=== PATIENT | male | born 1965 | race American Indian/Alaskan Native ===

== ENCOUNTER 2017-07-13 21:09 | Emergency (ER) | payer MEDICARE ==
[2017-07-13 21:46] VITALS: BP 153/103
== END 2017-07-14 14:15 ==
LOC: ED 21:09
DX: R46.89 Other symptoms and signs involving appearance and behavior (principal); Z53.21 Procedure and treatment not carried out due to patient leaving prior to being seen by health care provider

== ENCOUNTER 2017-08-22 17:44 | Inpatient (IN) | payer MEDICARE ==
[2017-08-22 21:49] LABS: Basophils % (Auto) 0.6 % (0.0-1.8); Eosinophils # (Auto) 0.3 K/mm3 (0.0-0.4); Eosinophils % (Auto) 4.7 % (0.0-4.3); Hematocrit 36.8 % (35.5-45.6); Hemoglobin 11.9 gm/dl (11.8-15.2); Lymphocytes # (Auto) 1.5 K/mm3 (1.2-5.4); Lymphocytes % (Auto) 27.9 % (13.4-35.0); Mean Corpuscular HGB Conc 32 % (32-34); Mean Corpuscular Hemoglobin 28 pg (28-32); Mean Corpuscular Volume 87 fl (84-94); Monocytes # (Auto) 0.7 K/mm3 (0.0-0.8); Monocytes % (Auto) 12.7 % (0.0-7.3); Platelet Count 247 K/mm3 (140-440); Red Blood Count 4.22 M/mm3 (3.65-5.03); Red Cell Distribution Width 15.4 % (13.2-15.2)
--- NOTE | 2017-08-22 22:06 | Cat Scan Report ---
FINAL REPORT EXAM: CT HEAD/BRAIN WO CON HISTORY: confusion TECHNIQUE: CT head without contrast PRIORS: None. FINDINGS: There is encephalomalacia within the posterior medial right lobe of the cerebellum. There is additional area of focal encephalomalacia seen within the right temporal parietal region. Focal hypodensity is present within the and right internal capsule consistent with a remote infarct. No acute a parenchymal abnormalities are seen. No acute intra or extra-axial hemorrhage is identified. Bony calvarium appears intact. Visualized portions of the paranasal sinuses and mastoids are unremarkable. IMPRESSION: Remote ischemic changes no acute abnormality identified
[2017-08-22 22:10] LABS: Albumin 3.1 g/dL (3.9-5); BUN/Creatinine Ratio 24; Blood Urea Nitrogen 19 mg/dL (9-20); Calcium 8.5 mg/dL (8.4-10.2); Hemolysis Index 320
[2017-08-22 22:11] LABS: Alanine Aminotransferase 35 units/L (7-56)
[2017-08-22 22:40] LABS: Albumin 3.7 g/dL (3.9-5); BUN/Creatinine Ratio 24; Blood Urea Nitrogen 19 mg/dL (9-20); Calcium 8.6 mg/dL (8.4-10.2); Hemolysis Index 196
[2017-08-22 22:50] LABS: Alanine Aminotransferase 35 units/L (7-56)
[2017-08-22 23:28] LABS: Bilirubin,Urine NEG (Negative); Blood,Urine NEG (Negative); Color,Urine Yellow (Yellow)
[2017-08-23 00:21] LABS: Alanine Aminotransferase 32 units/L (7-56); BUN/Creatinine Ratio 23; Blood Urea Nitrogen 18 mg/dL (9-20); Calcium 8.4 mg/dL (8.4-10.2); Hemolysis Index 16
--- NOTE | 2017-08-23 00:55 | Emergency Department Report ---
HPI - General Chief Complaint: Medical Clearance Time Seen by Provider: 08/22/17 21:12 - HPI HPI: Patient is a 52-year-old -Serbian male, was brought in the ED by his landlord states that patient is unable to care for self. However while in ED patient states that he is able to care for himself, he did have recent stroke a couple weeks ago but was discharged home. He is refusing placement to a [place] [facility] at this time. His refusing to come in the hospital since he thinks he is able to care for himself. Patient is alert, oriented, denying SI denies HI. Patient denies any acute complaints. He states since his stroke his memory has not been the same, but he is able to function, eat, dress himself , feed himself, bathe himself. He denies any focal weakness, chest pain, shortness of breath, nausea, vomiting or diarrhea. ED Past Medical Hx - Past Medical History Hx Hypertension: Yes Hx CVA: Yes Hx Diabetes: Yes Additional medical history: CHF, - Surgical History Additional Surgical History: Left arm - Social History Smoking Status: Never Smoker ED Review of Systems ROS: Stated complaint: VERY CONFUSED Other details as noted in HPI Comment: All other systems reviewed and negative ENT: denies: ear pain, throat pain Respiratory: denies: cough, orthopnea Cardiovascular: denies: chest pain, palpitations, dyspnea on exertion Physical Exam - Physical Exam Vital Signs: Vital Signs 08/22/17 08/22/17 08/22/17 17:52 20:34 21:29 Temperature 98.4 F 98.5 F Pulse Rate 90 85 Respiratory 16 18 18 Rate Blood Pressure 130/89 Blood Pressure 131/89 [Left] O2 Sat by Pulse 99 98 98 Oximetry 08/23/17 00:23 Temperature Pulse Rate 95 H Respiratory 18 Rate Blood Pressure Blood Pressure 140/72 [Left] O2 Sat by Pulse Oximetry Physical Exam: Physical Exam: - General Limitations: No Limitations General appearance: alert, in no apparent distress, - Head Head exam: Present: atraumatic, normocephalic - Eye Eye exam: Present: normal appearance - ENT ENT exam: Present: mucous membranes moist - Neck Neck exam: Present: normal inspection - Respiratory Respiratory exam: Present: normal lung sounds bilaterally. Absent: respiratory distress - Cardiovascular Cardiovascular Exam: Present: normal rhythm, tachycardia. Absent: systolic murmur, diastolic murmur, rubs, gallop - GI/Abdominal GI/Abdominal exam: Present: soft, normal bowel sounds - Extremities Exam Extremities exam: Present: normal inspection - Back Exam Back exam: Present: normal inspection - Neurological Exam Neurological exam: Present: alert, oriented X3 - Psychiatric Psychiatric exam: normal affect and mood - Skin Skin exam: Present: warm, dry, intact, normal color. Absent: rash ED Course Vital Signs 08/22/17 08/22/17 08/22/17 17:52 20:34 21:29 Temperature 98.4 F 98.5 F Pulse Rate 90 85 Respiratory 16 18 18 Rate Blood Pressure 130/89 Blood Pressure 131/89 [Left] O2 Sat by Pulse 99 98 98 Oximetry 08/23/17 00:23 Temperature Pulse Rate 95 H Respiratory 18 Rate Blood Pressure Blood Pressure 140/72 [Left] O2 Sat by Pulse Oximetry - Reevaluation(s) Reevaluation #1: 08/23/17 00:53 Patient labs are reviewed, no severe abnormalities found. Patient refusing to go to [place] [facility], being admitted to the hospital since he is not sure where he is being admitted for. He says that he can take care of himself. He said he was only brought here by his landlord. Wants to go back home. ED Medical Decision Making - Lab Data Result diagrams: 08/22/17 21:12 08/22/17 23:51 - Medical Decision Making Patient labs are reviewed, no severe abnormalities found. Patient refusing to go to [place] [facility], being admitted to the hospital since he is not sure where he is being admitted for. He says that he can take care of himself. He said he was only brought here by his landlord. Wants to go back home. Since patient is alert, oriented, denies anxiety, deny HI, I see no reason to hold patient's here against his will, or to send him to [place] [facility] again his will. Critical care attestation.: If time is entered above; I have spent that time in minutes in the direct care of this critically ill patient, excluding procedure time. ED Disposition Clinical Impression: Evaluation by medical service required Disposition: DC-01 TO HOME OR SELFCARE Is pt being admited?: No Does the pt Need Aspirin: No Condition: Stable Instructions: Weakness (ED) Referrals: NOE AMEZCUA MD [Primary Care Provider] - 3-5 Days
[2017-08-23] MEDS ORDERED: NACL 0.9% 1000 ML 1,000 ML IV ONE (01:17)
[2017-08-23] MEDS ORDERED: D50W (25GM) Syringe IV PRN (02:59)
--- NOTE | 2017-08-23 03:09 | History and Physical Report ---
History of Present Illness Date of examination: 08/23/17 Chief complaint: Brought from personal home care for placement History of present illness: 52-year-old -[place]i male with past medical history significant for stroke 3 weeks ago, CHF, diabetes mellitus, hypertension was brought from personal home care for complaints of change is not able to do his ADL's and need placement. Patient is having any complaints. Patient is doing well. REVIEW OF SYSTEMS: GENERAL: no weight change, no fatigue, no fever HEAD: no head ache EYES: no blurry vision, no acute visual loss EARS: no hearing loss, no discharge, no earache NOSE: no stuffiness, no sneezing, no discharge MOUTH, THROAT AND NECK: no bleeding gums, no sore throat, no swollen neck CARDIAC: no palpitations, no dyspnea on exertion, no orthopnea, no PND, no edema , no chest pain RESPIRATORY: no shortness of breath, no wheeze, no cough, no sputum, no hemoptysis, no asthma GI: no decreased appetite, no nausea, no vomiting, no dysphagia, no diarrhea, no constipation, no abdominal pain URINARY: no change in frequency, no urgency, no polyuria, no hematuria, no incontinence MUSCULOSKELETAL: no muscle weakness, no pain, no joint stiffness NEUROLOGIC: no loss of sensation/numbness, no tingling, no tremors, no weakness/ paralysis HEMATOLOGIC: no anemia, no easy bruising SKIN: no rashes ENDOCRINE: no heat/cold intolerance, no polyuria, no polydipsia, no thyroid problems PSYCHIATRIC: no anxiety, no depression, no suicidal ideations Past History Past Medical History: diabetes, heart failure, hypertension, stroke Past Surgical History: No surgical history Social history: full code. denies: smoking, alcohol abuse, prescription drug abuse, IV drug use Family history: no significant family history Medications and Allergies Allergies Allergy/AdvReac Type Severity Reaction Status Date / Time No Known Allergies Allergy Unverified 07/13/17 21:46 Active Meds: Active Medications Amlodipine Besylate (Norvasc) 5 mg PO DAILY [facility] Aspirin (Aspirin) 325 mg PO QDAY [facility] Atorvastatin Calcium (Lipitor) 20 mg PO QHS [facility] Dextrose (D50w (25gm) Syringe) 50 ml IV PRN PRN PRN Reason: Hypoglycemia Furosemide (Lasix) 20 mg PO DAILY [facility] Sodium Chloride (Nacl 0.9% 1000 Ml) 1,000 mls @ 125 mls/hr IV ONCE ONE Stop: 08/23/17 09:16 Insulin Human Lispro (Humalog) 0 unit SUB-Q ACHS KALE; Protocol Exam - Physical Exam Narrative exam: Not in cardiopulmonary distress. The patient appeared well nourished and normally developed. Vital signs as documented. Head exam is unremarkable. No scleral icterus . Neck is without jugular venous distension, thyromegaly, or carotid bruits. Lungs are clear to auscultation. Cardiac exam reveals regular rate and Rhythm. First and second heart sounds normal. No murmurs, rubs or gallops. Abdominal exam reveals normal bowel sounds, no masses, no organomegaly and no aortic enlargement. Extremities trace pretibial edema. SHINGLES ROOFER: Alert and oriented 3. No focal weakness. - Constitutional Vitals: Temp Pulse Resp BP Pulse Ox 98.5 F 95 H 18 140/72 98 08/22/17 20:34 08/23/17 00:23 08/23/17 00:23 08/23/17 00:23 08/22/17 21:29 Results - Labs CBC & Chem 7: 08/22/17 21:12 08/22/17 23:51 Labs: Laboratory Last Values WBC 5.5 K/mm3 (4.5-11.0) 08/22/17 21:12 RBC 4.22 M/mm3 (3.65-5.03) 08/22/17 21:12 Hgb 11.9 gm/dl (11.8-15.2) 08/22/17 21:12 Hct 36.8 % (35.5-45.6) 08/22/17 21:12 MCV 87 fl (84-94) 08/22/17 21:12 MCH 28 pg (28-32) 08/22/17 21:12 MCHC 32 % (32-34) 08/22/17 21:12 RDW 15.4 % (13.2-15.2) H 08/22/17 21:12 Plt Count 247 K/mm3 (140-440) 08/22/17 21:12 Lymph % (Auto) 27.9 % (13.4-35.0) 08/22/17 21:12 [place] % (Auto) 12.7 % (0.0-7.3) H 08/22/17 21:12 Eos % (Auto) 4.7 % (0.0-4.3) H 08/22/17 21:12 Baso % (Auto) 0.6 % (0.0-1.8) 08/22/17 21:12 Lymph # 1.5 K/mm3 (1.2-5.4) 08/22/17 21:12 [place] # 0.7 K/mm3 (0.0-0.8) 08/22/17 21:12 Eos # 0.3 K/mm3 (0.0-0.4) 08/22/17 21:12 Baso # 0.0 K/mm3 (0.0-0.1) 08/22/17 21:12 Seg Neutrophils % 54.1 % (40.0-70.0) 08/22/17 21:12 Seg Neutrophils # 3.0 K/mm3 (1.8-7.7) 08/22/17 21:12 Sodium 137 mmol/L (137-145) 08/22/17 23:51 Potassium 4.6 mmol/L (3.6-5.0) D 08/22/17 23:51 Chloride 99.7 mmol/L (98-107) 08/22/17 23:51 Carbon Dioxide 26 mmol/L (22-30) 08/22/17 23:51 Anion Gap 16 mmol/L 08/22/17 23:51 BUN 18 mg/dL (9-20) 08/22/17 23:51 Creatinine 0.8 mg/dL (0.8-1.5) 08/22/17 23:51 Estimated GFR > 60 ml/min 08/22/17 23:51 BUN/Creatinine Ratio 23 % 08/22/17 23:51 Glucose 146 mg/dL (75-100) H 08/22/17 23:51 Calcium 8.4 mg/dL (8.4-10.2) 08/22/17 23:51 Total Bilirubin 0.70 mg/dL (0.1-1.2) 08/22/17 23:51 AST 27 units/L (5-40) 08/22/17 23:51 ALT 32 units/L (7-56) 08/22/17 23:51 Alkaline Phosphatase 117 units/L (35-129) 08/22/17 23:51 Total Protein 6.4 g/dL (6.3-8.2) 08/22/17 23:51 Albumin 3.0 g/dL (3.9-5) L 08/22/17 23:51 Albumin/Globulin Ratio 0.9 % 08/22/17 23:51 Urine Color Yellow (Yellow) 08/22/17 22:53 Urine Turbidity Clear (Clear) 08/22/17 22:53 Urine pH 5.0 (5.0-7.0) 08/22/17 22:53 Ur Specific [place] 1.021 (1.003-1.030) 08/22/17 22:53 Urine Protein 30 mg/dl mg/dL (Negative) 08/22/17 22:53 Urine Glucose (UA) 50 mg/dL (Negative) 08/22/17 22:53 Urine Ketones Neg mg/dL (Negative) 08/22/17 22:53 Urine Blood Neg (Negative) 08/22/17 22:53 Urine Nitrite Neg (Negative) 08/22/17 22:53 Urine Bilirubin Neg (Negative) 08/22/17 22:53 Urine Urobilinogen 4.0 mg/dL (<2.0) 08/22/17 22:53 Ur Leukocyte Esterase Neg (Negative) 08/22/17 22:53 Urine WBC (Auto) 1.0 /HPF (0.0-6.0) 08/22/17 22:53 Urine RBC (Auto) 3.0 /HPF (0.0-6.0) 08/22/17 22:53 U Epithel Cells (Auto) < 1.0 /HPF (0-13.0) 08/22/17 22:53 Assessment and Plan Assessment and plan: 52 y/o -[place] male was brought from personal home care for placement. History of stroke, will put him on aspirin, atorvastatin, physical therapy, his management consult Diabetes mellitus, ADA diet, settings give insulin, Accu-Chek Hypertension amlodipine 5 mg and will monitor Chronic CHF specified on Lasix 20 mg daily DVT prophylaxis - On Lovenox Disposition - Admit to [facility] floor. Advance Directives: Yes VTE prophylaxis?: Chemical Plan of care discussed with patient/family: Yes
[2017-08-23] MEDS: HumaLOG SUB-Q SCH ×4 (08:45→23:39)
[2017-08-23] MEDS ORDERED: HumaLOG SUB-Q ONE ×3 (10:00)
--- NOTE | 2017-08-23 10:13 | Discharge Summary ---
Providers - Providers Date of Admission: 08/23/17 01:14 Attending physician: EDUARDO BAPTISTE MD 08/23/17 03:02 Consult to Case Management [CONS] Routine Services Needed at Discharge: Physical Therapy Other Notified:: pt Comment:: placement 08/23/17 03:03 Consult to Dietitian/Nutrition [CONS] Routine Physician Instructions: Reason For Exam: Reason for Consult: Malnutrition 08/23/17 10:09 Occupational Therapy Evaluate and Treat [CONS] Routine Reason For Exam: debility Comment: Physical Therapy Evaluation and Treat [CONS] Routine Reason For Exam: debility Comment: Primary care physician: NOE AMEZCUA Hospitalization Condition: Stable Disposition: DC/[place]-03 SNF [facility] Time spent for discharge: 35 mins Exam - Constitutional Vitals: Temp Pulse Resp BP Pulse Ox 98.9 F 91 H 18 134/86 100 08/23/17 07:46 08/23/17 07:46 08/23/17 08:12 08/23/17 07:46 08/23/17 08:12 Plan Activity: advance as tolerated, fall precautions Diet: low cholesterol, diabetic Special Instructions: record daily BP diary, physical therapy Follow up with: NOE AMEZCUA MD [Primary Care Provider] - 3-5 Days Prescriptions: AtorvaSTATin [Lipitor] 20 mg PO QHS #30 tablet amLODIPine [Norvasc] 5 mg PO DAILY #30 tablet Aspirin [Aspirin BABY CHEW TAB] 81 mg PO QDAY #30 tab.chew Furosemide [Lasix TAB] 20 mg PO DAILY #30 tablet
--- NOTE | 2017-08-23 11:13 | Progress Note ---
Hospitalist Physical - Constitutional Vitals: Temp Pulse Resp BP Pulse Ox 98.9 F 91 H 18 134/86 100 08/23/17 07:46 08/23/17 07:46 08/23/17 08:12 08/23/17 07:46 08/23/17 08:12 Results - Labs CBC & Chem 7: 08/22/17 21:12 08/22/17 23:51 Labs: Laboratory Last Values WBC 5.5 K/mm3 (4.5-11.0) 08/22/17 21:12 RBC 4.22 M/mm3 (3.65-5.03) 08/22/17 21:12 Hgb 11.9 gm/dl (11.8-15.2) 08/22/17 21:12 Hct 36.8 % (35.5-45.6) 08/22/17 21:12 MCV 87 fl (84-94) 08/22/17 21:12 MCH 28 pg (28-32) 08/22/17 21:12 MCHC 32 % (32-34) 08/22/17 21:12 RDW 15.4 % (13.2-15.2) H 08/22/17 21:12 Plt Count 247 K/mm3 (140-440) 08/22/17 21:12 Lymph % (Auto) 27.9 % (13.4-35.0) 08/22/17 21:12 [place] % (Auto) 12.7 % (0.0-7.3) H 08/22/17 21:12 Eos % (Auto) 4.7 % (0.0-4.3) H 08/22/17 21:12 Baso % (Auto) 0.6 % (0.0-1.8) 08/22/17 21:12 Lymph # 1.5 K/mm3 (1.2-5.4) 08/22/17 21:12 [place] # 0.7 K/mm3 (0.0-0.8) 08/22/17 21:12 Eos # 0.3 K/mm3 (0.0-0.4) 08/22/17 21:12 Baso # 0.0 K/mm3 (0.0-0.1) 08/22/17 21:12 Seg Neutrophils % 54.1 % (40.0-70.0) 08/22/17 21:12 Seg Neutrophils # 3.0 K/mm3 (1.8-7.7) 08/22/17 21:12 Sodium 137 mmol/L (137-145) 08/22/17 23:51 Potassium 4.6 mmol/L (3.6-5.0) D 08/22/17 23:51 Chloride 99.7 mmol/L (98-107) 08/22/17 23:51 Carbon Dioxide 26 mmol/L (22-30) 08/22/17 23:51 Anion Gap 16 mmol/L 08/22/17 23:51 BUN 18 mg/dL (9-20) 08/22/17 23:51 Creatinine 0.8 mg/dL (0.8-1.5) 08/22/17 23:51 Estimated GFR > 60 ml/min 08/22/17 23:51 BUN/Creatinine Ratio 23 % 08/22/17 23:51 Glucose 146 mg/dL (75-100) H 08/22/17 23:51 POC Glucose 247 (70-105) H 08/23/17 04:13 Calcium 8.4 mg/dL (8.4-10.2) 08/22/17 23:51 Total Bilirubin 0.70 mg/dL (0.1-1.2) 08/22/17 23:51 AST 27 units/L (5-40) 08/22/17 23:51 ALT 32 units/L (7-56) 08/22/17 23:51 Alkaline Phosphatase 117 units/L (35-129) 08/22/17 23:51 Total Protein 6.4 g/dL (6.3-8.2) 08/22/17 23:51 Albumin 3.0 g/dL (3.9-5) L 08/22/17 23:51 Albumin/Globulin Ratio 0.9 % 08/22/17 23:51 Urine Color Yellow (Yellow) 08/22/17 22:53 Urine Turbidity Clear (Clear) 08/22/17 22:53 Urine pH 5.0 (5.0-7.0) 08/22/17 22:53 Ur Specific [place] 1.021 (1.003-1.030) 08/22/17 22:53 Urine Protein 30 mg/dl mg/dL (Negative) 08/22/17 22:53 Urine Glucose (UA) 50 mg/dL (Negative) 08/22/17 22:53 Urine Ketones Neg mg/dL (Negative) 08/22/17 22:53 Urine Blood Neg (Negative) 08/22/17 22:53 Urine Nitrite Neg (Negative) 08/22/17 22:53 Urine Bilirubin Neg (Negative) 08/22/17 22:53 Urine Urobilinogen 4.0 mg/dL (<2.0) 08/22/17 22:53 Ur Leukocyte Esterase Neg (Negative) 08/22/17 22:53 Urine WBC (Auto) 1.0 /HPF (0.0-6.0) 08/22/17 22:53 Urine RBC (Auto) 3.0 /HPF (0.0-6.0) 08/22/17 22:53 U Epithel Cells (Auto) < 1.0 /HPF (0-13.0) 08/22/17 22:53
[2017-08-23] MEDS: ASPIRIN PO SCH (12:59)
[2017-08-23] MEDS: LOVENOX SUB-Q SCH (12:59)
[2017-08-23] MEDS: LASIX PO SCH (12:59)
[2017-08-23] MEDS: NORVASC PO SCH (12:59)
[2017-08-23] MEDS: LANTUS SUB-Q SCH (23:39)
--- NOTE | 2017-08-24 01:47 | Event Note ---
Date: 08/23/17 patient seen and examined in no acute distress. Resting comfortably in Bed. Denies any chest pain, nausea, vomiting or diarrhea. Per facility patient has been having change in behaviour and requiring a higher level of care than a personal longterm. Awaiting full medication reconciliation;
[2017-08-24] MEDS: HumaLOG SUB-Q SCH ×4 (07:30→22:49)
[2017-08-24 08:04] LABS: BUN/Creatinine Ratio 26; Blood Urea Nitrogen 18 mg/dL (9-20); Calcium 8.4 mg/dL (8.4-10.2); Hemolysis Index 8
[2017-08-24] MEDS: LOVENOX SUB-Q SCH (09:14)
[2017-08-24] MEDS: LASIX PO SCH (09:14)
[2017-08-24] MEDS: ASPIRIN PO SCH (09:14)
[2017-08-24] MEDS: NORVASC PO SCH (09:14)
[2017-08-24] MEDS ORDERED: HumaLOG SUB-Q ONE ×2 (10:00)
--- NOTE | 2017-08-24 13:21 | Progress Note ---
Assessment and Plan Assessment and plan: Patient is a 52-year-old man from [facility] skilled nursing with history of stroke 3 weeks ago, chf and htn who presented with ams, failure to thrive, needing placement -Acute encephalopathy: Consulted dietitian -Late effect CVA: PT OT -Hypertension: Low-salt diet, when necessary antihypertensive -Chronic CHF stable Awaiting chcf placement History Interval history: Patient was seen and examined. Follow-up on current diagnosis of ams. Overnight uneventful. Patient denies any chest pain, shortness breath, nausea/ vomiting or severe headaches. Imaging, nursing note, chart, labs and old chart reviewed. Discussed with patient. Hospitalist Physical - Physical exam Narrative exam: GEN: WDWN, NAD, AWAKE, ALERT, ORIENTATED x 2, thinks it is 2016 HEENT: NCAT, EOMI, PERRL, OP Clear NECK: supple, no adenopathy, no thyromegaly, no JVD CVS/HEART: RRR, NORMAL S1S2, pulses present bilaterally CHEST/LUNGS: CTA B, Symmetrical chest expansion, good air entry bilaterally GI/Abdomen: soft, NTND, good bowel sounds, no guarding or rebound /Bladder: no suprapubic tenderness, no CVA or paraspinal tenderness EXT/Skin: no c/c/e, no obvious rash MSK: FROM x 4 Neuro: CN 2-12 grossly intact, no new focal deficits Psych: calm - Constitutional Vitals: Temp Pulse Resp BP Pulse Ox 99.3 F 80 18 130/78 97 08/24/17 07:51 08/24/17 09:14 08/24/17 07:51 08/24/17 09:14 08/24/17 07:51 Results - Labs CBC & Chem 7: 08/22/17 21:12 08/24/17 07:07 Labs: Laboratory Last Values WBC 5.5 K/mm3 (4.5-11.0) 08/22/17 21:12 RBC 4.22 M/mm3 (3.65-5.03) 08/22/17 21:12 Hgb 11.9 gm/dl (11.8-15.2) 08/22/17 21:12 Hct 36.8 % (35.5-45.6) 08/22/17 21:12 MCV 87 fl (84-94) 08/22/17 21:12 MCH 28 pg (28-32) 08/22/17 21:12 MCHC 32 % (32-34) 08/22/17 21:12 RDW 15.4 % (13.2-15.2) H 08/22/17 21:12 Plt Count 247 K/mm3 (140-440) 08/22/17 21:12 Lymph % (Auto) 27.9 % (13.4-35.0) 08/22/17 21:12 [place] % (Auto) 12.7 % (0.0-7.3) H 08/22/17 21:12 Eos % (Auto) 4.7 % (0.0-4.3) H 08/22/17 21:12 Baso % (Auto) 0.6 % (0.0-1.8) 08/22/17 21:12 Lymph # 1.5 K/mm3 (1.2-5.4) 08/22/17 21: [place] # 0.7 K/mm3 (0.0-0.8) 08/22/17 21:12 Eos # 0.3 K/mm3 (0.0-0.4) 08/22/17 21:12 Baso # 0.0 K/mm3 (0.0-0.1) 08/22/17 21:12 Seg Neutrophils % 54.1 % (40.0-70.0) 08/22/17 21:12 Seg Neutrophils # 3.0 K/mm3 (1.8-7.7) 08/22/17 21:12 Sodium 134 mmol/L (137-145) L 08/24/17 07:07 Potassium 4.3 mmol/L (3.6-5.0) 08/24/17 07:07 Chloride 99.6 mmol/L (98-107) 08/24/17 07:07 Carbon Dioxide 21 mmol/L (22-30) L 08/24/17 07:07 Anion Gap 18 mmol/L 08/24/17 07:07 BUN 18 mg/dL (9-20) 08/24/17 07:07 Creatinine 0.7 mg/dL (0.8-1.5) L 08/24/17 07:07 Estimated GFR > 60 ml/min 08/24/17 07:07 BUN/Creatinine Ratio 26 % 08/24/17 07:07 Glucose 167 mg/dL (75-100) H 08/24/17 07:07 POC Glucose 174 (70-105) H 08/24/17 11:30 Calcium 8.4 mg/dL (8.4-10.2) 08/24/17 07:07 Total Bilirubin 0.70 mg/dL (0.1-1.2) 08/22/17 23:51 AST 27 units/L (5-40) 08/22/17 23:51 ALT 32 units/L (7-56) 08/22/17 23:51 Alkaline Phosphatase 117 units/L (35-129) 08/22/17 23:51 Total Protein 6.4 g/dL (6.3-8.2) 08/22/17 23:51 Albumin 3.0 g/dL (3.9-5) L 08/22/17 23:51 Albumin/Globulin Ratio 0.9 % 08/22/17 23:51 Urine Color Yellow (Yellow) 08/22/17 22:53 Urine Turbidity Clear (Clear) 08/22/17 22:53 Urine pH 5.0 (5.0-7.0) 08/22/17 22:53 Ur Specific [place] 1.021 (1.003-1.030) 08/22/17 22:53 Urine Protein 30 mg/dl mg/dL (Negative) 08/22/17 22:53 Urine Glucose (UA) 50 mg/dL (Negative) 08/22/17 22:53 Urine Ketones Neg mg/dL (Negative) 08/22/17 22:53 Urine Blood Neg (Negative) 08/22/17 22:53 Urine Nitrite Neg (Negative) 08/22/17 22:53 Urine Bilirubin Neg (Negative) 08/22/17 22:53 Urine Urobilinogen 4.0 mg/dL (<2.0) 08/22/17 22:53 Ur Leukocyte Esterase Neg (Negative) 08/22/17 22:53 Urine WBC (Auto) 1.0 /HPF (0.0-6.0) 08/22/17 22:53 Urine RBC (Auto) 3.0 /HPF (0.0-6.0) 08/22/17 22:53 U Epithel Cells (Auto) < 1.0 /HPF (0-13.0) 08/22/17 22:53
[2017-08-24] MEDS: LANTUS SUB-Q SCH (22:49)
[2017-08-25] MEDS: HumaLOG SUB-Q SCH ×4 (07:25→23:57)
[2017-08-25] MEDS ORDERED: TYLENOL PO PRN (08:19)
--- NOTE | 2017-08-25 08:46 | XRay Report ---
AP CHEST: HISTORY: Fever No comparison. Mild cardiomegaly, mild pulmonary venous congestion and small bilateral pleural effusions are identified. No convincing pneumonia. No pneumothorax. The bony structures are unremarkable. IMPRESSION: Mild CHF versus volume overload. No convincing pneumonia is detected on portable chest.
[2017-08-25] MEDS: LOVENOX SUB-Q SCH (09:40)
[2017-08-25] MEDS: ASPIRIN PO SCH (09:40)
[2017-08-25] MEDS: LASIX PO SCH (09:41)
[2017-08-25] MEDS: NORVASC PO SCH (09:41)
[2017-08-25 12:08] LABS: Hematocrit 34.2 % (35.5-45.6); Hemoglobin 11.5 gm/dl (11.8-15.2); Mean Corpuscular HGB Conc 34 % (32-34); Mean Corpuscular Hemoglobin 29 pg (28-32); Mean Corpuscular Volume 86 fl (84-94); Platelet Count 239 K/mm3 (140-440); Red Cell Distribution Width 15.1 % (13.2-15.2)
[2017-08-25 12:24] LABS: BUN/Creatinine Ratio 21; Blood Urea Nitrogen 19 mg/dL (9-20); Calcium 8.8 mg/dL (8.4-10.2); Hemolysis Index 1
--- NOTE | 2017-08-25 16:31 | Progress Note ---
Assessment and Plan Assessment and plan: Patient is a 52-year-old man from [facility] with history of stroke 3 weeks ago, chf and htn who presented with ams, failure to thrive, needing placement -Acute encephalopathy: Consulted dietitian -Late effect CVA: PT OT -Hypertension: Low-salt diet, when necessary antihypertensive -Chronic CHF stable [facility]waiting [place] [facility] placement new issue fevers: blood culture, cxr r/o pneumonia History Interval history: Patient was seen and examined. Follow-up on current diagnosis of ams. Overnight uneventful. Patient denies any chest pain, shortness breath, nausea/ vomiting or severe headaches. Imaging, nursing note, chart, labs and old chart reviewed. Discussed with patient. Hospitalist Physical - Physical exam Narrative exam: GEN: WDWN, NAD, AWAKE, ALERT, ORIENTATED x 2, thinks it is 2016 HEENT: NCAT, EOMI, PERRL, OP Clear NECK: supple, no adenopathy, no thyromegaly, no JVD CVS/HEART: RRR, NORMAL S1S2, pulses present bilaterally CHEST/LUNGS: CTA B, Symmetrical chest expansion, good air entry bilaterally GI/Abdomen: soft, NTND, good bowel sounds, no guarding or rebound /Bladder: no suprapubic tenderness, no CVA or paraspinal tenderness EXT/Skin: no c/c/e, no obvious rash MSK: FROM x 4 Neuro: CN 2-12 grossly intact, no new focal deficits Psych: calm - Constitutional Vitals: Temp Pulse Resp BP Pulse Ox 98.4 F 90 19 138/84 99 08/25/17 07:17 08/25/17 07:17 08/25/17 07:17 08/25/17 07:17 08/25/17 07:17 Results - Labs CBC & Chem 7: 08/25/17 11:45 08/25/17 11:45 Labs: Laboratory Last Values WBC 6.6 K/mm3 (4.5-11.0) 08/25/17 11:45 RBC 4.00 M/mm3 (3.65-5.03) 08/25/17 11:45 Hgb 11.5 gm/dl (11.8-15.2) L 08/25/17 11:45 Hct 34.2 % (35.5-45.6) L 08/25/17 11:45 MCV 86 fl (84-94) 08/25/17 11:45 MCH 29 pg (28-32) 08/25/17 11:45 MCHC 34 % (32-34) 08/25/17 11:45 RDW 15.1 % (13.2-15.2) 08/25/17 11:45 Plt Count 239 K/mm3 (140-440) 08/25/17 11:45 Lymph % (Auto) 27.9 % (13.4-35.0) 08/22/17 21:12 [place] % (Auto) 12.7 % (0.0-7.3) H 08/22/17 21:12 Eos % (Auto) 4.7 % (0.0-4.3) H 08/22/17 21:12 Baso % (Auto) 0.6 % (0.0-1.8) 08/22/17 21:12 Lymph # 1.5 K/mm3 (1.2-5.4) 08/22/17 21:12 [place] # 0.7 K/mm3 (0.0-0.8) 08/22/17 21:12 Eos # 0.3 K/mm3 (0.0-0.4) 08/22/17 21:12 Baso # 0.0 K/mm3 (0.0-0.1) 08/22/17 21:12 Seg Neutrophils % 54.1 % (40.0-70.0) 08/22/17 21:12 Seg Neutrophils # 3.0 K/mm3 (1.8-7.7) 08/22/17 21:12 Sodium 134 mmol/L (137-145) L 08/25/17 11:45 Potassium 4.8 mmol/L (3.6-5.0) 08/25/17 11:45 Chloride 96.2 mmol/L (98-107) L 08/25/17 11:45 Carbon Dioxide 23 mmol/L (22-30) 08/25/17 11:45 Anion Gap 20 mmol/L 08/25/17 11:45 BUN 19 mg/dL (9-20) 08/25/17 11:45 Creatinine 0.9 mg/dL (0.8-1.5) 08/25/17 11:45 Estimated GFR > 60 ml/min 08/25/17 11:45 BUN/Creatinine Ratio 21 % 08/25/17 11:45 Glucose 199 mg/dL (75-100) H 08/25/17 11:45 POC Glucose 145 (70-105) H 08/25/17 16:01 Calcium 8.8 mg/dL (8.4-10.2) 08/25/17 11:45 Total Bilirubin 0.70 mg/dL (0.1-1.2) 08/22/17 23:51 AST 27 units/L (5-40) 08/22/17 23:51 ALT 32 units/L (7-56) 08/22/17 23:51 Alkaline Phosphatase 117 units/L (35-129) 08/22/17 23:51 Total Protein 6.4 g/dL (6.3-8.2) 08/22/17 23:51 Albumin 3.0 g/dL (3.9-5) L 08/22/17 23:51 Albumin/Globulin Ratio 0.9 % 08/22/17 23:51 Urine Color Yellow (Yellow) 08/22/17 22:53 Urine Turbidity Clear (Clear) 08/22/17 22:53 Urine pH 5.0 (5.0-7.0) 08/22/17 22:53 Ur Specific [place] 1.021 (1.003-1.030) 08/22/17 22:53 Urine Protein 30 mg/dl mg/dL (Negative) 08/22/17 22:53 Urine Glucose (UA) 50 mg/dL (Negative) 08/22/17 22:53 Urine Ketones Neg mg/dL (Negative) 08/22/17 22:53 Urine Blood Neg (Negative) 08/22/17 22:53 Urine Nitrite Neg (Negative) 08/22/17 22:53 Urine Bilirubin Neg (Negative) 08/22/17 22:53 Urine Urobilinogen 4.0 mg/dL (<2.0) 08/22/17 22:53 Ur Leukocyte Esterase Neg (Negative) 08/22/17 22:53 Urine WBC (Auto) 1.0 /HPF (0.0-6.0) 08/22/17 22:53 Urine RBC (Auto) 3.0 /HPF (0.0-6.0) 08/22/17 22:53 U Epithel Cells (Auto) < 1.0 /HPF (0-13.0) 08/22/17 22:53
[2017-08-26] MEDS: HumaLOG SUB-Q SCH ×4 (08:03→23:53)
[2017-08-26] MEDS: LASIX PO SCH (09:26)
[2017-08-26] MEDS: NORVASC PO SCH (09:26)
[2017-08-26] MEDS: ASPIRIN PO SCH (09:27)
[2017-08-26] MEDS: LOVENOX SUB-Q SCH (09:28)
[2017-08-26 09:51] LABS: Bilirubin,Urine NEG (Negative); Blood,Urine NEG (Negative); Color,Urine Yellow (Yellow); Mucus,Urine FEW /HPF
--- NOTE | 2017-08-26 10:56 | Query- Nutrition ---
Peter Gaston Date:___08/26/2017 Mapping Editor/CDS:__Abeba Phone#:__[phone] Exercise your independent professional judgment when responding to query. Questions asked do not imply a particular answer is desired or expected. We greatly appreciate your clarification on this issue. Clinical Documentation States: 52 Year old male was admitted on 08/23/2017 with ams, failure to thrive, needing placement. Clinical Findings Show: Albumin: 3.0 Please select the most appropriate option 3 [x] Mild Malnutrition [] Mild - Moderate Malnutrition [] Moderate - Severe Malnutrition [] Severe Malnutrition Serum Albumin 2.8 to 3.4 g/dl or Pre-albumin 5 to 17 mg/dl1,2 Inadequate nutritional intake1,2,3,4 NPO > 5 days Weight loss: 5% in 1 month or 7.5% in 3 months or 10% in 6 months1, 3,4 BMI 16 to 18.4 or Weight <90% of ideal body weight1,2,3,4 Serum Albumin < 2.8 g/ dl1,2 Lymphocytes < 1500/ L2 Inadequate nutritional intake3, high stress e.g. major trauma, sepsis,pancreatitis, [place] etc. Decubitus ulcers1,2, , skin breakdown2, easy hair pluckability2 Weight <80% standard for height2 Triceps skin fold <3 mm2 Mid-arm muscle circumference <15 cm2 Creatinine-height index <60% standard2 [ ] Cachexia [ ] Emaciated w/Malnutrition [ ] Other: [ ] Unable to determine [ ] Comment/Explanation: Present on Admission: [x ] Yes (Y) [ ] Clinically undeterminable (W) [ ] No (N) Please also document response in your Progress Notes and/or Discharge Summary and indicate if the condition was present on admission. MTDD
--- NOTE | 2017-08-26 15:42 | Consultation ---
History of Present Illness - Reason for Consult Consult date: 08/26/17 fever Requesting physician: JOSEFA LUIS - History of Present Illness 52 years old male with history of CHF, HTN andCVA 3 weeks ago; [facility] from [facility] due to patient not able to care for self. However while in ED patient states that he was able to care for himself. He refused placement to a ch[facility]. Denies any recent fever, cough, SOB, chest congestion, abdominal pain. By 08/24 temperature went up to 100.1. Then by temperature was 101.7. Reports nonproductive cough last 24 hours. In the ED, initial temperature was 98.4, heart rate 90, respirations 16, O2 sat 99%, blood pressure 130/89. Initial white count 5.5, hemoglobin 11.9, platelets 247. Creatinine 0.8. Glucose 146. CT of the head showed remote ischemic changes. Chest x-ray showed bilateral pulmonary edema. UA neg. Microbiology: Blood cultures: 08/25 ngtd Current Antimicrobials: none Previous Antimicrobials: Past History Past Medical History: diabetes, heart failure, hypertension, stroke Past Surgical History: No surgical history Social history: full code. denies: smoking, alcohol abuse, prescription drug abuse, IV drug use Family history: no significant family history Medications and Allergies Allergies Allergy/AdvReac Type Severity Reaction Status Date / Time No Known Allergies Allergy Unverified 07/13/17 21:46 Home Medications Medication Instructions Recorded Confirmed Last Taken Type Aspirin [Aspirin BABY CHEW TAB] 81 mg PO QDAY #30 tab.chew 08/23/17 Unknown Rx AtorvaSTATin [Lipitor] 20 mg PO QHS #30 tablet 08/23/17 Unknown Rx Furosemide [Lasix TAB] 20 mg PO DAILY #30 tablet 08/23/17 Unknown Rx amLODIPine [Norvasc] 5 mg PO DAILY #30 tablet 08/23/17 Unknown Rx Active Meds: Active Medications Acetaminophen (Tylenol) 650 mg PO Q6H PRN PRN Reason: Non Cardiac Pain or Temp>100.5 Last Admin: 08/25/17 22:23 Dose: 650 mg Amlodipine Besylate (Norvasc) 5 mg PO DAILY COUNTS INCLUDE 234 BEDS AT THE [facility] Last Admin: 08/26/17 09:26 Dose: 5 mg Aspirin (Aspirin) 325 mg PO QDAY COUNTS INCLUDE 234 BEDS AT THE [facility] Last Admin: 08/26/17 09:27 Dose: 325 mg Atorvastatin Calcium (Lipitor) 20 mg PO QHS COUNTS INCLUDE 234 BEDS AT THE [facility] Last Admin: 08/25/17 22:24 Dose: 20 mg Dextrose (D50w (25gm) Syringe) 50 ml IV PRN PRN PRN Reason: Hypoglycemia Enoxaparin Sodium (Lovenox) 40 mg SUB-Q DAILY COUNTS INCLUDE 234 BEDS AT THE [facility] Last Admin: 08/26/17 09:28 Dose: 40 mg Furosemide (Lasix) 20 mg PO DAILY COUNTS INCLUDE 234 BEDS AT THE [facility] Last Admin: 08/26/17 09:26 Dose: 20 mg Insulin Glargine (Lantus) 18 units SUB-Q QHS COUNTS INCLUDE 234 BEDS AT THE [facility] Last Admin: 08/26/17 00:00 Dose: 18 units Insulin Human Lispro (Humalog) 0 unit SUB-Q [facility]; Protocol Last Admin: 08/26/17 12:52 Dose: 2 unit Review of Systems All systems: negative Physical Examination - Physical Exam Narrative exam: General appearance: Alert in NAD, conversant Eyes: anicteric sclerae, moist conjunctivae; no lid-lag; PERRLA HENT: Atraumatic; oropharynx clear Neck: Trachea midline; supple, no thyromegaly or lymphadenopathy Lungs: CTA CV: RRR, no murmurs Abdomen: Soft, +RUQ tenderness Extremities: No peripheral edema or extremity lymphadenopathy Skin: Normal temperature, turgor and texture; no rash, ulcers or subcutaneous nodules Psych: Appropriate affect, alert and oriented to person, place and time. Neuro: alert and oriented x 3. Moving all extermities Lines: No CVL / PICC - Constitutional Vitals: Vital Signs Temp Pulse Resp BP Pulse Ox 99.3 F 90 18 131/91 95 08/26/17 07:23 08/26/17 07:23 08/26/17 07:23 08/26/17 07:23 08/26/17 07:23 Temperature -Last 24 Hours Temperature 99.3 F Temperature 100.1 F Temperature 101.7 F Temperature 97.3 F Results - Labs CBC & Chem 7: 08/25/17 11:45 08/25/17 11:45 Labs: Abnormal lab results 08/25/17 08/25/17 08/26/17 Range/Units 16:01 21:02 05:29 POC Glucose 145 H 147 H 142 H (70-105) 08/26/17 Range/Units 12:08 POC Glucose 164 H (70-105) Assessment and Plan Assessment: 1) SIRS: NOT Present on admission, manifested by fever, tachycardia. Etiology unclear. DDx. aspiration pneumonitis ? GB ? 2) Cough: initial CXR no consolidations 3) Recent CVA 4) Acute encephalopathy: better 5) Chronic CHF: stable 6) RUQ tenderness ? Plan: -follow-up blood cultures -obtain procalcitonin, C-reactive protein (CRP) -add zosyn to cover asp pneumonitis for now -repeat CXR in 48h -GB US Thank you for your consultation, will follow up with you. Rosario Barnett MD Infectious Diseases Specialist [facility] ([facility]) M [phone] O [phone]
--- NOTE | 2017-08-26 16:44 | Progress Note ---
Assessment and Plan Assessment and plan: Patient is a 52-year-old man from [facility] with history of stroke 3 weeks ago, chf and htn who presented with ams, failure to thrive, needing placement -Acute encephalopathy: Consulted dietitian -Late effect CVA: PT OT -Hypertension: Low-salt diet, when necessary antihypertensive -Chronic CHF stable Awaiting longterm placement new issue fevers: blood culture, cxr r/o pneumonia Consulted ID. aspiration pneumonitis? History Interval history: Patient was seen and examined. Follow-up on current diagnosis of ams, resolved. Overnight fevers. Patient denies any chest pain, shortness breath, nausea/vomiting or severe headaches. Imaging, nursing note, chart, labs and old chart reviewed. Discussed with patient. 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 Physical - Physical exam Narrative exam: GEN: WDWN, NAD, AWAKE, ALERT, ORIENTATED x 2, thinks it is 2015 HEENT: NCAT, EOMI, PERRL, OP Clear NECK: supple, no adenopathy, no thyromegaly, no JVD CVS/HEART: RRR, NORMAL S1S2, pulses present bilaterally CHEST/LUNGS: CTA B, Symmetrical chest expansion, good air entry bilaterally GI/Abdomen: soft, NTND, good bowel sounds, no guarding or rebound /Bladder: no suprapubic tenderness, no CVA or paraspinal tenderness EXT/Skin: no c/c/e, no obvious rash MSK: FROM x 4 Neuro: CN 2-12 grossly intact, no new focal deficits Psych: calm - Constitutional Vitals: Temp Pulse Resp BP Pulse Ox 99.3 F 90 18 131/91 95 08/26/17 07:23 08/26/17 07:23 08/26/17 07:23 08/26/17 07:23 08/26/17 07:23 Results - Labs CBC & Chem 7: 08/25/17 11:45 08/25/17 11:45 Labs: Laboratory Last Values WBC 6.6 K/mm3 (4.5-11.0) 08/25/17 11:45 RBC 4.00 M/mm3 (3.65-5.03) 08/25/17 11:45 Hgb 11.5 gm/dl (11.8-15.2) L 08/25/17 11:45 Hct 34.2 % (35.5-45.6) L 08/25/17 11:45 MCV 86 fl (84-94) 08/25/17 11:45 MCH 29 pg (28-32) 08/25/17 11:45 MCHC 34 % (32-34) 08/25/17 11:45 RDW 15.1 % (13.2-15.2) 08/25/17 11:45 Plt Count 239 K/mm3 (140-440) 08/25/17 11:45 Lymph % (Auto) 27.9 % (13.4-35.0) 08/22/17 21:12 [place] % (Auto) 12.7 % (0.0-7.3) H 08/22/17 21:12 Eos % (Auto) 4.7 % (0.0-4.3) H 08/22/17 21:12 Baso % (Auto) 0.6 % (0.0-1.8) 08/22/17 21:12 Lymph # 1.5 K/mm3 (1.2-5.4) 08/22/17 21:12 [place] # 0.7 K/mm3 (0.0-0.8) 08/22/17 21:12 Eos # 0.3 K/mm3 (0.0-0.4) 08/22/17 21:12 Baso # 0.0 K/mm3 (0.0-0.1) 08/22/17 21:12 Seg Neutrophils % 54.1 % (40.0-70.0) 08/22/17 21:12 Seg Neutrophils # 3.0 K/mm3 (1.8-7.7) 08/22/17 21:12 Sodium 134 mmol/L (137-145) L 08/25/17 11:45 Potassium 4.8 mmol/L (3.6-5.0) 08/25/17 11:45 Chloride 96.2 mmol/L (98-107) L 08/25/17 11:45 Carbon Dioxide 23 mmol/L (22-30) 08/25/17 11:45 Anion Gap 20 mmol/L 08/25/17 11:45 BUN 19 mg/dL (9-20) 08/25/17 11:45 Creatinine 0.9 mg/dL (0.8-1.5) 08/25/17 11:45 Estimated GFR > 60 ml/min 08/25/17 11:45 BUN/Creatinine Ratio 21 % 08/25/17 11:45 Glucose 199 mg/dL (75-100) H 08/25/17 11:45 POC Glucose 164 (70-105) H 08/26/17 12:08 Calcium 8.8 mg/dL (8.4-10.2) 08/25/17 11:45 Total Bilirubin 0.70 mg/dL (0.1-1.2) 08/22/17 23:51 AST 27 units/L (5-40) 08/22/17 23:51 ALT 32 units/L (7-56) 08/22/17 23:51 Alkaline Phosphatase 117 units/L (35-129) 08/22/17 23:51 Total Protein 6.4 g/dL (6.3-8.2) 08/22/17 23:51 Albumin 3.0 g/dL (3.9-5) L 08/22/17 23:51 Albumin/Globulin Ratio 0.9 % 08/22/17 23:51 Urine Color Yellow (Yellow) 08/26/17 09:34 Urine Turbidity Clear (Clear) 08/26/17 09:34 Urine pH 5.0 (5.0-7.0) 08/26/17 09:34 Ur Specific [place] 1.021 (1.003-1.030) 08/26/17 09:34 Urine Protein 30 mg/dl mg/dL (Negative) 08/26/17 09:34 Urine Glucose (UA) Neg mg/dL (Negative) 08/26/17 09:34 Urine Ketones Neg mg/dL (Negative) 08/26/17 09:34 Urine Blood Neg (Negative) 08/26/17 09:34 Urine Nitrite Neg (Negative) 08/26/17 09:34 Urine Bilirubin Neg (Negative) 08/26/17 09:34 Urine Urobilinogen 4.0 mg/dL (<2.0) 08/26/17 09:34 Ur Leukocyte Esterase Neg (Negative) 08/26/17 09:34 Urine WBC (Auto) 1.0 /HPF (0.0-6.0) 08/26/17 09:34 Urine RBC (Auto) 2.0 /HPF (0.0-6.0) 08/26/17 09:34 U Epithel Cells (Auto) < 1.0 /HPF (0-13.0) 08/26/17 09:34 Urine Mucus Few /HPF 08/26/17 09:34
[2017-08-26] MEDS: ZOSYN/NS 4.5GM/100ML 4.5 GM/100 ML VIAL IV SCH ×2 (17:53→21:45)
[2017-08-26] MEDS: LANTUS SUB-Q SCH ×2 (21:51)
[2017-08-27] MEDS: ZOSYN/NS 4.5GM/100ML 4.5 GM/100 ML VIAL IV SCH ×3 (06:10→21:00)
[2017-08-27] MEDS: HumaLOG SUB-Q SCH ×4 (08:01→21:00)
[2017-08-27] MEDS: LOVENOX SUB-Q SCH (09:59)
[2017-08-27] MEDS: NORVASC PO SCH (09:59)
[2017-08-27] MEDS: LASIX PO SCH (10:00)
[2017-08-27] MEDS: ASPIRIN PO SCH (10:00)
--- NOTE | 2017-08-27 14:25 | Progress Note ---
Assessment and Plan Assessment: 1) SIRS: better. Etiology unclear. DDx. aspiration pneumonitis ? GB ?. CRP=7 2) Cough: initial CXR no consolidations 3) Recent CVA 4) Acute encephalopathy: better 5) Chronic CHF: stable 6) RUQ tenderness ? resolved Plan: -pt wants to go home -ok to d/c home on clindamycin 300 mg po tid to complete 7 days for presumed asp pneumonitis Thank you for your consultation, will follow up with you. Rosario Barnett MD Infectious Diseases Specialist [facility] ([facility]) M [phone] O [phone] Subjective Date of service: 08/27/17 Principal diagnosis: SIRS Interval history: Feels better, no fever, wants to go home. Tmax 100.1 Microbiology: Blood cultures: 08/25 ngtd Current Antimicrobials: zosyn 08/26 Previous Antimicrobials: Objective - Exam Narrative Exam: General appearance: Alert in NAD, conversant Eyes: anicteric sclerae, moist conjunctivae; no lid-lag; PERRLA HENT: Atraumatic; oropharynx clear Neck: Trachea midline; supple, no thyromegaly or lymphadenopathy Lungs: CTA CV: RRR, no murmurs Abdomen: Soft, NT Extremities: No peripheral edema or extremity lymphadenopathy Skin: Normal temperature, turgor and texture; no rash, ulcers or subcutaneous nodules Psych: Appropriate affect, alert and oriented to person, place and time. Neuro: alert and oriented x 3. Moving all extermities Lines: No CVL / PICC - Constitutional Vitals: Vital Signs Temp Pulse Resp BP Pulse Ox 98.6 F 81 18 110/78 99 08/27/17 12:08 08/27/17 12:08 08/27/17 12:08 08/27/17 12:08 08/27/17 12:08 Temperature -Last 24 Hours Temperature 98.6 F Temperature 98.4 F Temperature 98.4 F - Labs CBC & Chem 7: 08/25/17 11:45 08/25/17 11:45 Labs: Abnormal lab results 08/26/17 08/26/17 08/26/17 Range/Units 16:31 17:29 21:59 POC Glucose 192 H 127 H (70-105) C-Reactive Protein 7.10 H (0.00-1.30) mg/dL 08/27/17 Range/Units 11:39 POC Glucose 196 H (70-105) C-Reactive Protein (0.00-1.30) mg/dL
--- NOTE | 2017-08-27 14:35 | Discharge Summary ---
Providers - Providers Date of Admission: 08/23/17 01:14 Date of discharge: 08/27/17 Attending physician: JOSEFA LUIS 08/23/17 03:02 Consult to Case Management [CONS] Routine Services Needed at Discharge: Physical Therapy Other Notified:: pt Comment:: placement 08/23/17 03:03 Consult to Dietitian/Nutrition [CONS] Routine Physician Instructions: Reason For Exam: Reason for Consult: Malnutrition 08/23/17 10:09 Occupational Therapy Evaluate and Treat [CONS] Routine Comment: Reason For Exam: debility Physical Therapy Evaluation and Treat [CONS] Routine Comment: Reason For Exam: debility 08/26/17 08:29 Consult to Physician [CONS] Routine Consulting Provider: PATRICE RIGGINS Reason For Exam: why fevers? Place consult to:: TEXT DR. JUÁREZ Notified:: TEXT DR. JUÁREZ Phone number called:: [phone] Time called:: 09:12 Comment:: ARTEMIO NOTIFIED Primary care physician: NOE AMEZCUA Hospitalization Condition: Stable Hospital course: Patient is a 52-[facility]-old [facility] with history of stroke 3 weeks ago, chf and htn who presented with ams, failure to thrive, needing placement -Acute encephalopathy: Consulted dietitian -Late effect CVA: PT OT -Hypertension: Low-salt diet, when necessary antihypertensive -Chronic CHF stable -Suspected Aspiration pneumonitis with sepsis, pt had SIRS on admission and sepsis found later. Did not qualify for placement because function improvement with PT, will d/c back to [facility] per Dr. Juárez, ID "Assessment: 1) SIRS: better. Etiology unclear. DDx. aspiration pneumonitis ? GB ?. CRP=7 2) Cough: initial CXR no consolidations 3) Recent CVA 4) Acute encephalopathy: better 5) Chronic CHF: stable 6) RUQ tenderness ? resolved Plan: -pt wants to go home -ok to d/c home on clindamycin 300 mg po tid to complete 7 days for presumed asp pneumonitis Thank you for your consultation, will follow up with you." Disposition: DC/TX-03 SN[facility] Time spent for discharge: 35 minutes Core Measure Documentation - Palliative Care Palliative Care/ Comfort Measures: Not Applicable - Core Measures Any of the following diagnoses?: none - VTE Discharge Requirements Deep Vein Thrombosis/Pulmonary Embolism Present on Admission: No Has pt received <5 days of overlap therapy or INR<2.0: No Anticoagulant overlap therapy prescribed at discharge: No Contraindication No Overlap Therapy order at DC: Not Indicated Exam - Physical Exam Narrative exam: GEN: WDWN, NAD, AWAKE, ALERT, ORIENTATED x 2, thinks it is 2015 HEENT: NCAT, EOMI, PERRL, OP Clear NECK: supple, no adenopathy, no thyromegaly, no JVD CVS/HEART: RRR, NORMAL S1S2, pulses present bilaterally CHEST/LUNGS: CTA B, Symmetrical chest expansion, good air entry bilaterally GI/Abdomen: soft, NTND, good bowel sounds, no guarding or rebound /Bladder: no suprapubic tenderness, no CVA or paraspinal tenderness EXT/Skin: no c/c/e, no obvious rash MSK: FROM x 4 Neuro: CN 2-12 grossly intact, no new focal deficits Psych: calm - Constitutional Vitals: Temp Pulse Resp BP Pulse Ox 98.6 F 81 18 110/78 99 08/27/17 12:08 08/27/17 12:08 08/27/17 12:08 08/27/17 12:08 08/27/17 12:08 Plan Activity: up only with assistance, fall precautions, other (no strenous activity ) Diet: low salt, diabetic Special Instructions: record daily BP diary, record blood sugar diary Follow up with: NOE AMEZCUA MD [Primary Care Provider] - 3-5 Days Prescriptions: AtorvaSTATin [Lipitor] 20 mg PO QHS #30 tablet Insulin Glargine [Lantus VIAL] 18 units SUB-Q QHS #30 units amLODIPine [Norvasc] 5 mg PO DAILY #30 tablet Aspirin [Aspirin BABY CHEW TAB] 81 mg PO QDAY #30 tab.chew Furosemide [Lasix TAB] 20 mg PO DAILY #30 tablet Lispro Insulin [Humalog] 1 dose SUB-Q [facility] #100 units
[2017-08-27 16:52] VITALS: BP 117/82
[2017-08-27] MEDS: LANTUS SUB-Q SCH (21:00)
== END 2017-08-27 23:37 | disposition home health service (06) | DRG 871 ==
LOC: ED 17:44 → 3A 08-23 01:14
PROVIDERS: ADMIT Internal Medicine; ATTEND Internal Medicine
DX: A41.9 Sepsis, unspecified organism (principal); G93.40 Encephalopathy, unspecified; J69.0 Pneumonitis due to inhalation of food and vomit; E44.1 Mild protein-calorie malnutrition; I69.319 Unspecified symptoms and signs involving cognitive functions following cerebral infarction; R62.7 Adult failure to thrive; Z68.27 Body mass index [BMI] 27.0-27.9, adult; I11.0 Hypertensive heart disease with heart failure; I50.9 Heart failure, unspecified; E11.9 Type 2 diabetes mellitus without complications; I69.30 Unspecified sequelae of cerebral infarction; Z79.82 Long term (current) use of aspirin
CPT/HCPCS: 36415; 70450; 71045; 80048; 80053; 81001; 82962; 85025; 85027; 86140; 87040; 99285; A9270-GY; G8987-GO; G8988-GO; J1650; J1815; J2543; J7030

== ENCOUNTER 2018-07-27 11:57 | Emergency (ER) | payer MEDICARE, OTHER ==
[2018-07-27] MEDS ORDERED: NACL 0.9% 1000 ML 1,000 ML IV ONE (12:38)
[2018-07-27] MEDS ORDERED: ZOFRAN IV ONE (12:38)
--- NOTE | 2018-07-27 12:43 | Emergency Department Report ---
ED General Adult HPI - General Chief complaint: Nausea/Vomiting/Diarrhea Stated complaint: WEAKNESS/NAUSEA Time Seen by Provider: 07/27/18 12:34 Source: patient, EMS Mode of arrival: Stretcher Limitations: No Limitations - History of Present Illness Initial comments: Patient is 53 years old male with history of congestive heart failure, coronary artery disease, diabetes and hypertension. Patient presented to the emergency room complaining of nausea and vomiting started this morning. Patient stated that he vomited twice this morning. Patient denied any hematemesis, hematochezia, melena or diarrhea. Patient also denied any abdominal pain, chest pain, shortness of breast, cough, fever or chills. Patient found to have a blood pressure of 99/54 in triage. Severity scale (0 -10): 0 - Related Data Previous Rx's Medication Instructions Recorded Last Taken Type Aspirin EC [Aspirin Enteric Coated 81 mg PO QDAY #30 tablet 12/18/17 Unknown Rx TAB] AtorvaSTATin [Lipitor] 40 mg PO QHS #30 tablet 12/18/17 Unknown Rx Ondansetron [Zofran Odt] 4 mg PO Q8H PRN #20 tab.rapdis 03/30/18 Unknown Rx Carvedilol [Coreg] 3.125 mg PO BID #60 tablet 04/15/18 Unknown Rx Clopidogrel [Plavix] 75 mg PO QDAY #30 tablet 04/15/18 Unknown Rx Lactulose [Cephulac] 20 gm PO BID 7 Days oral.liqd 04/15/18 Unknown Rx Lisinopril [Zestril TAB] 2.5 mg PO QDAY #30 tablet 04/15/18 Unknown Rx Warfarin [Coumadin] 5 mg PO DAILY@1700 #30 tablet 04/15/18 Unknown Rx metFORMIN 1,000 mg PO BID #60 04/15/18 Unknown Rx Furosemide [Lasix TAB] 40 mg PO QDAY #60 tablet 06/03/18 Unknown Rx Allergies Allergy/AdvReac Type Severity Reaction Status Date / Time No Known Allergies Allergy Verified 03/30/18 08:37 ED Review of Systems ROS: Stated complaint: WEAKNESS/NAUSEA Other details as noted in HPI Comment: All other systems reviewed and negative Constitutional: denies: chills, fever Respiratory: denies: cough, orthopnea, shortness of breath, SOB with exertion, SOB at rest, wheezing Cardiovascular: denies: chest pain, palpitations, dyspnea on exertion Gastrointestinal: nausea, vomiting. denies: abdominal pain, diarrhea, constipation, hematemesis, melena, hematochezia Genitourinary: denies: urgency, dysuria Neurological: denies: headache, weakness ED Past Medical Hx - Past Medical History Previous Medical History?: Yes Hx Hypertension: Yes Hx CVA: Yes Hx Heart Attack/AMI: Yes (stent placement) Hx Congestive Heart Failure: Yes Hx Diabetes: Yes Hx Liver Disease: Yes Additional medical history: CHF - Surgical History Past Surgical History?: Yes Additional Surgical History: Left arm - Social History Smoking Status: Never Smoker Substance Use Type: None - Medications Home Medications: Home Medications Medication Instructions Recorded Confirmed Last Taken Type Aspirin EC [Aspirin Enteric Coated 81 mg PO QDAY #30 tablet 12/18/17 04/13/18 Unknown Rx TAB] AtorvaSTATin [Lipitor] 40 mg PO QHS #30 tablet 12/18/17 04/13/18 Unknown Rx Ondansetron [Zofran Odt] 4 mg PO Q8H PRN #20 tab.rapdis 03/30/18 04/13/18 Unknown Rx Carvedilol [Coreg] 3.125 mg PO BID #60 tablet 04/15/18 Unknown Rx Clopidogrel [Plavix] 75 mg PO QDAY #30 tablet 04/15/18 Unknown Rx Lactulose [Cephulac] 20 gm PO BID 7 Days oral.liqd 04/15/18 Unknown Rx Lisinopril [Zestril TAB] 2.5 mg PO QDAY #30 tablet 04/15/18 Unknown Rx Warfarin [Coumadin] 5 mg PO DAILY@1700 #30 tablet 04/15/18 Unknown Rx metFORMIN 1,000 mg PO BID #60 04/15/18 Unknown Rx Furosemide [Lasix TAB] 40 mg PO QDAY #60 tablet 06/03/18 Unknown Rx ED Physical Exam - General Limitations: No Limitations General appearance: alert, in no apparent distress - Head Head exam: Present: atraumatic, normocephalic, normal inspection - Eye Eye exam: Present: normal appearance, PERRL - ENT ENT exam: Present: normal exam, normal orophraynx, mucous membranes moist - Neck Neck exam: Present: normal inspection, full ROM. Absent: tenderness, meningismus, lymphadenopathy, thyromegaly - Respiratory Respiratory exam: Present: normal lung sounds bilaterally - Cardiovascular Cardiovascular Exam: Present: regular rate, normal rhythm, normal heart sounds - GI/Abdominal GI/Abdominal exam: Present: soft, normal bowel sounds. Absent: distended, tenderness, guarding, rebound, rigid, organomegaly, mass, bruit, pulsatile mass, hernia - Extremities Exam Extremities exam: Present: normal inspection, full ROM, normal capillary refill - Back Exam Back exam: Present: normal inspection, full ROM. Absent: tenderness, CVA tenderness (R), CVA tenderness (L), muscle spasm, paraspinal tenderness, vertebral tenderness - Neurological Exam Neurological exam: Present: alert, oriented X3, CN II-XII intact, normal gait, reflexes normal - Skin Skin exam: Present: warm, intact, normal color ED Course Vital Signs 07/27/18 07/27/18 07/27/18 12:08 12:15 12:30 Temperature 97.9 F Pulse Rate 59 L 59 L 57 L Respiratory 13 14 Rate Blood Pressure 99/61 99/61 O2 Sat by Pulse 98 98 Oximetry 07/27/18 07/27/18 07/27/18 12:45 13:00 13:15 Temperature Pulse Rate 59 L 58 L 56 L Respiratory 10 L 14 11 L Rate Blood Pressure 101/65 101/65 104/65 O2 Sat by Pulse 99 96 Oximetry ED Medical Decision Making - Lab Data Result diagrams: 07/27/18 12:48 07/27/18 12:54 - Medical Decision Making Patient is 53 years old male with history of congestive heart failure, coronary artery disease, diabetes and hypertension. Patient presented to the emergency room complaining of nausea and vomiting started this morning. Patient stated that he vomited twice this morning. Patient denied any hematemesis, hematochezia, melena or diarrhea. Patient also denied any abdominal pain, chest pain, shortness of breast, cough, fever or chills. Patient found to have a blood pressure of 99/54 in triage. Patient received 1 L of normal saline and Zofran. Patient stated that he is feeling much better. No nausea or vomiting. Patient is asking for something to eat and drink. Patient tolerated by mouth very well. Advised patient to follow-up with his primary care physician in the next 2-3 days and to return to the ER if her symptoms not improve. Critical care attestation.: If time is entered above; I have spent that time in minutes in the direct care of this critically ill patient, excluding procedure time. ED Disposition Clinical Impression: Nausea & vomiting Disposition: DC-01 TO HOME OR SELFCARE Is pt being admited?: No Condition: Stable Instructions: Acute Nausea and Vomiting (ED) Referrals: STEVEN MEYERS MD [Primary Care Provider] - 3-5 Days
[2018-07-27 13:01] LABS: Hematocrit 39.9 % (35.5-45.6); Hemoglobin 12.9 gm/dl (11.8-15.2); Mean Corpuscular HGB Conc 32 % (32-34); Mean Corpuscular Volume 83 fl (84-94); Platelet Count 251 K/mm3 (140-440); Red Blood Count 4.82 M/mm3 (3.65-5.03); Red Cell Distribution Width 17.2 % (13.2-15.2)
[2018-07-27 13:18] VITALS: BP 104/65
[2018-07-27 13:18] LABS: Alanine Aminotransferase 21 units/L (7-56); Albumin 3.5 g/dL (3.9-5); BUN/Creatinine Ratio 26; Bilirubin,Direct 0.2 mg/dL (0-0.2); Blood Urea Nitrogen 36 mg/dL (9-20); Calcium 9.5 mg/dL (8.4-10.2); Hemolysis Index 7
[2018-07-27 14:09] LABS: Basophils % (Manual) 0 % (0.0-1.8); Total Cells Counted 100
[2018-07-27 14:10] LABS: Anisocytosis 1+; Ovalocytes 1+; Platelet Estimate Consistent w Auto; Poikilocytosis 1+
[2018-07-27 14:48] LABS: Bilirubin,Urine NEG (Negative); Blood,Urine NEG (Negative); Color,Urine Yellow (Yellow); Hyaline Casts,Urine 1 /LPF; Protein,Urine <15 mg/dL mg/dL (Negative); Urobilinogen,Urine < 2.0 mg/dL (<2.0)
== END 2018-07-27 14:37 | disposition home or self-care (01) ==
LOC: ED 11:57
DX: R11.2 Nausea with vomiting, unspecified (principal); I11.0 Hypertensive heart disease with heart failure; I50.9 Heart failure, unspecified; I25.2 Old myocardial infarction; E11.9 Type 2 diabetes mellitus without complications
CPT/HCPCS: 36415; 80048; 80076; 81001; 82140; 83690; 84484; 85007; 85025; 93005; 93010; 96361; 96374; 99284; J2405; J7030

== ENCOUNTER 2018-09-11 08:52 | Inpatient (IN) | payer MEDICARE, OTHER ==
[2018-09-11 09:30] LABS: Hematocrit 31.9 % (35.5-45.6); Hemoglobin 10.3 gm/dl (11.8-15.2); Mean Corpuscular HGB Conc 32 % (32-34); Mean Corpuscular Volume 84 fl (84-94); Platelet Count 311 K/mm3 (140-440); Red Blood Count 3.82 M/mm3 (3.65-5.03); Red Cell Distribution Width 18.5 % (13.2-15.2)
[2018-09-11 09:41] LABS: BUN/Creatinine Ratio 12; Blood Urea Nitrogen 12 mg/dL (9-20); Calcium 8.5 mg/dL (8.4-10.2); Hemolysis Index 1
--- NOTE | 2018-09-11 10:20 | Emergency Department Report ---
ED Syncope HPI - General Chief Complaint: Weakness Stated Complaint: UNSTEADY GAIT Time Seen by Provider: 09/11/18 10:01 Source: patient - History of Present Illness Initial Comments: 53-year-old male with history of CVA in the past, CHF, diabetes presents to the ED following syncopal episode this morning. Patient states he was sitting at the dining room table and passed out. Patient states this was after eating breakfast. The patient denies headache, chest pain, lightheadedness, shortness of breath prior to the episode. Patient states he is feeling fine at this time. He has baseline left-sided weakness from his previous CVA, denies any new neurological symptoms. Denies tobacco, ETOH, drugs Admitting Clerk: Dr Tyson ([facility]) Timing/Prior Episodes: no prior history Precipitating Factors: Positive: none Context: sitting Loss of Consciousness: brief (seconds) Current Symptoms: back to normal - Related Data Allergies/Adverse Reactions: Allergies No Known Allergies Allergy (Verified 03/30/18 08:37) Home Medications: Ambulatory Orders Aspirin EC [Aspirin Enteric Coated TAB] 81 mg PO QDAY #30 tablet 12/18/17 AtorvaSTATin [Lipitor] 40 mg PO QHS #30 tablet 12/18/17 Clopidogrel [Plavix] 75 mg PO QDAY #30 tablet 04/15/18 Warfarin [Coumadin] 5 mg PO DAILY@1700 #30 tablet 04/15/18 Furosemide [Lasix TAB] 40 mg PO QDAY #60 tablet 06/03/18 Carvedilol [Coreg] 6.25 mg PO BID 07/28/18 Docusate Sodium [Colace] 100 mg PO BID 07/28/18 Ferrous Sulfate [Feosol] 325 mg PO QDAY 07/28/18 Gabapentin [Neurontin] 300 mg PO Q8HR 07/28/18 Insulin Glargine,Hum.rec.anlog [Lantus] 18 units SQ QHS 07/28/18 Lisinopril [Zestril] 20 mg PO QDAY 07/28/18 Lispro Insulin [Humalog] 25 unit SQ BID 07/28/18 Mirtazapine [Remeron] 15 mg PO QHS 07/28/18 Potassium Chloride 10 meq PO DAILY 07/28/18 Quetiapine Fumarate [SEROquel] 50 mg PO QDAY 07/28/18 Spironolactone 25 mg PO DAILY 07/28/18 Terbinafine HCl [LamiSIL] 250 mg PO DAILY 07/28/18 amLODIPine [Norvasc] 5 mg PO DAILY 07/28/18 glipiZIDE [Glucotrol] 5 mg PO BID 07/28/18 ED Review of Systems ROS: Stated complaint: UNSTEADY GAIT Other details as noted in HPI Comment: All other systems reviewed and negative Constitutional: denies: chills, fever Respiratory: denies: shortness of breath Cardiovascular: denies: chest pain Gastrointestinal: denies: abdominal pain, nausea, vomiting, diarrhea Neurological: denies: headache ED Past Medical Hx - Past Medical History Previous Medical History?: Yes Hx Hypertension: Yes Hx CVA: Yes (X3) Hx Heart Attack/AMI: Yes (stent placement X9) Hx Congestive Heart Failure: Yes Hx Diabetes: Yes Hx Liver Disease: Yes Additional medical history: CHF - Surgical History Past Surgical History?: Yes Additional Surgical History: Left arm - Social History Smoking Status: Unknown if ever smoked Substance Use Type: None - Medications Home Medications: Home Medications Medication Instructions Recorded Confirmed Last Taken Type Aspirin EC [Aspirin Enteric Coated 81 mg PO QDAY #30 tablet 12/18/17 07/28/18 Unknown Rx TAB] AtorvaSTATin [Lipitor] 40 mg PO QHS #30 tablet 12/18/17 07/28/18 Unknown Rx Clopidogrel [Plavix] 75 mg PO QDAY #30 tablet 04/15/18 07/28/18 Unknown Rx Warfarin [Coumadin] 5 mg PO DAILY@1700 #30 tablet 04/15/18 07/28/18 Unknown Rx Furosemide [Lasix TAB] 40 mg PO QDAY #60 tablet 06/03/18 07/28/18 Unknown Rx Carvedilol [Coreg] 6.25 mg PO BID 07/28/18 07/28/18 Unknown History Docusate Sodium [Colace] 100 mg PO BID 07/28/18 07/28/18 Unknown History Ferrous Sulfate [Feosol] 325 mg PO QDAY 07/28/18 07/28/18 Unknown History Gabapentin [Neurontin] 300 mg PO Q8HR 07/28/18 07/28/18 Unknown History Insulin Glargine,Hum.rec.anlog 18 units SQ QHS 07/28/18 07/28/18 Unknown History [Lantus] Lisinopril [Zestril] 20 mg PO QDAY 07/28/18 07/28/18 Unknown History Lispro Insulin [Humalog] 25 unit SQ BID 07/28/18 07/28/18 Unknown History Mirtazapine [Remeron] 15 mg PO QHS 07/28/18 07/28/18 Unknown History Potassium Chloride 10 meq PO DAILY 07/28/18 07/28/18 Unknown History Quetiapine Fumarate [SEROquel] 50 mg PO QDAY 07/28/18 07/28/18 Unknown History Spironolactone 25 mg PO DAILY 07/28/18 07/28/18 Unknown History Terbinafine HCl [LamiSIL] 250 mg PO DAILY 07/28/18 07/28/18 Unknown History amLODIPine [Norvasc] 5 mg PO DAILY 07/28/18 07/28/18 Unknown History glipiZIDE [Glucotrol] 5 mg PO BID 07/28/18 07/28/18 Unknown History ED Physical Exam - General Limitations: No Limitations General appearance: alert, in no apparent distress - Head Head exam: Present: atraumatic, normocephalic - Eye Eye exam: Present: normal appearance - ENT ENT exam: Present: mucous membranes moist - Neck Neck exam: Present: normal inspection - Respiratory Respiratory exam: Present: normal lung sounds bilaterally. Absent: respiratory distress - Cardiovascular Cardiovascular Exam: Present: regular rate, normal rhythm - GI/Abdominal GI/Abdominal exam: Present: soft. Absent: distended, tenderness - Extremities Exam Extremities exam: Present: pedal edema - Neurological Exam Neurological exam: Present: alert, oriented X3, CN II-XII intact, motor sensory deficit (minimal weakness in LUE, LLE compared to right) - Psychiatric Psychiatric exam: Present: normal affect, normal mood - Skin Skin exam: Present: warm, dry, intact, normal color ED Course Vital Signs 09/11/18 09/11/18 09/11/18 08:56 09:17 09:30 Temperature 98.6 F Pulse Rate 90 68 66 Respiratory 18 17 Rate Blood Pressure 146/90 133/92 O2 Sat by Pulse 97 100 95 Oximetry 09/11/18 09/11/18 09/11/18 09:45 10:00 10:15 Temperature Pulse Rate 61 63 65 Respiratory 15 15 16 Rate Blood Pressure 133/86 133/87 138/86 O2 Sat by Pulse 94 96 98 Oximetry ED Medical Decision Making - Lab Data Result diagrams: 09/11/18 09:16 09/11/18 09:16 - EKG Data -: EKG Interpreted by Me EKG shows normal: sinus rhythm, axis, intervals, QRS complexes Rate: normal - EKG Data Interpretation: other (LAFB; T wave inversions laterally) - Radiology Data Radiology results: report reviewed, image reviewed - Medical Decision Making - CT Head negative - no new neuro deficits on exam - CXR shows pulm edema, BNP elevated, no resp distress - lasix given - admit to hospitalist, Dr Sena - Differential Diagnosis dehydration, arrythmia, CVA Critical care attestation.: If time is entered above; I have spent that time in minutes in the direct care of this critically ill patient, excluding procedure time. ED Disposition Clinical Impression: Syncope, CHF (congestive heart failure) Disposition: OP ADMIT IP TO THIS HOSP Is pt being admited?: Yes Condition: Stable Time of Disposition: 11:52
[2018-09-11 10:29] LABS: Basophils % (Manual) 0 % (0.0-1.8); Total Cells Counted 100
[2018-09-11 10:30] LABS: Anisocytosis 1+; Large Platelets Rare; Ovalocytes Few; Platelet Estimate Consistent w Auto; Poikilocytosis 1+
[2018-09-11 10:45] LABS: INR 1.15 (0.87-1.13)
[2018-09-11 10:46] LABS: Partial Thromboplastin Time 28.1 Sec. (24.2-36.6)
--- NOTE | 2018-09-11 10:58 | XRay Report ---
AP CHEST: HISTORY: Syncope Mild cardiomegaly and pulmonary venous congestion have developed since 07/28/18. Trace right pleural effusion could be present. No obvious pneumonia or pneumothorax. IMPRESSION: Mild cardiomegaly and pulmonary venous congestion.
--- NOTE | 2018-09-11 11:13 | Cat Scan Report ---
CT HEAD WITHOUT CONTRAST: HISTORY: Syncope. TECHNIQUE: Sequential CT images without contrast. FINDINGS: Compared to 04/11/18. Mild diffuse volume loss and mild chronic white matter changes are again noted. Multiple chronic infarcts are also again identified which appear unchanged. Chronic infarcts are identified in the right posterior frontal lobe, right posterior watershed region, left medial occipital lobe, right basal ganglia and right inferior cerebellum. No new areas of diminished attenuation are identified to suggest acute ischemia. No hemorrhage, mass or extra-axial fluid collection. Ventricular size is stable and within normal limits. The sinuses are adequately aerated. There is mild mucosal thickening in the visualized left maxillary sinus. IMPRESSION: Evidence of atrophy and microangiopathic ischemic disease. Multiple chronic infarcts as described above which appear unchanged since 04/11/18. No acute intracranial process is identified.
[2018-09-11] MEDS ORDERED: LASIX IV ONE (11:46)
[2018-09-12] MEDS ORDERED: DILAUDID IV PRN (01:28)
[2018-09-12] MEDS ORDERED: ZOFRAN IV PRN ×2 (01:28→07:42)
[2018-09-12] MEDS ORDERED: TYLENOL PO PRN ×2 (01:28→07:42)
[2018-09-12] MEDS ORDERED: SODIUM CHLORIDE FLUSH SYRINGE 10 ML IV PRN ×2 (01:28→07:42)
--- NOTE | 2018-09-12 07:38 | History and Physical Report ---
History of Present Illness Date of examination: 09/11/18 Date of admission: 09/11/18 11:52 Chief complaint: Passed out this AM History of present illness: 53-year-old male with history of CVA in the past, CHF, diabetes presents to the ED following syncopal episode this morning. Patient states he was sitting at the dining room table and passed out. Patient states this was after eating breakfast. The patient denies headache, chest pain, lightheadedness, shortness of breath prior to the episode. Patient states he is feeling fine at this time. He has baseline left-sided weakness from his previous CVA, denies any new neurological symptoms. Denies tobacco, ETOH, drugs Past Medical History Previous Medical History?: Yes Hypertension: Yes CVA: Yes (X3) Heart Attack/AMI: Yes (stent placement X9) Congestive Heart Failure: Yes Diabetes: Yes Liver Disease: Yes Additional medical history: CHF Surgical History Past Surgical History?: Yes Additional Surgical History: Left arm Social History Smoking Status: Unknown if ever smoked Substance Use Type: None Medications Home Medications: Home Medications Medication Instructions Recorded Confirmed Last Taken Type Aspirin EC [Aspirin Enteric Coated 81 mg PO QDAY #30 tablet 12/18/17 07/28/18 Unknown Rx TAB] AtorvaSTATin [Lipitor] 40 mg PO QHS #30 tablet 12/18/17 07/28/18 Unknown Rx Clopidogrel [Plavix] 75 mg PO QDAY #30 tablet 04/15/18 07/28/18 Unknown Rx Warfarin [Coumadin] 5 mg PO DAILY@1700 #30 tablet 04/15/18 07/28/18 Unknown Rx Furosemide [Lasix TAB] 40 mg PO QDAY #60 tablet 06/03/18 07/28/18 Unknown Rx Carvedilol [Coreg] 6.25 mg PO BID 07/28/18 07/28/18 Unknown History Docusate Sodium [Colace] 100 mg PO BID 07/28/18 07/28/18 Unknown History Ferrous Sulfate [Feosol] 325 mg PO QDAY 07/28/18 07/28/18 Unknown History Gabapentin [Neurontin] 300 mg PO Q8HR 07/28/18 07/28/18 Unknown History Insulin Glargine,Hum.rec.anlog 18 units SQ QHS 07/28/18 07/28/18 Unknown History [Lantus] Lisinopril [Zestril] 20 mg PO QDAY 07/28/18 07/28/18 Unknown History Lispro Insulin [Humalog] 25 unit SQ BID 07/28/18 07/28/18 Unknown History Mirtazapine [Remeron] 15 mg PO QHS 07/28/18 07/28/18 Unknown History Potassium Chloride 10 meq PO DAILY 07/28/18 07/28/18 Unknown History Quetiapine Fumarate [SEROquel] 50 mg PO QDAY 07/28/18 07/28/18 Unknown History Spironolactone 25 mg PO DAILY 07/28/18 07/28/18 Unknown History Terbinafine HCl [LamiSIL] 250 mg PO DAILY 07/28/18 07/28/18 Unknown History amLODIPine [Norvasc] 5 mg PO DAILY 07/28/18 07/28/18 Unknown History glipiZIDE [Glucotrol] 5 mg PO BID 07/28/18 07/28/18 Unknown History Review of Systems ROS: Stated complaint: UNSTEADY GAIT Other details as noted in HPI Comment: All other systems reviewed and negative Constitutional: denies: chills, fever Respiratory: denies: shortness of breath Cardiovascular: denies: chest pain Gastrointestinal: denies: abdominal pain, nausea, vomiting, diarrhea Neurological: denies: headache Medications and Allergies Allergies Allergy/AdvReac Type Severity Reaction Status Date / Time No Known Allergies Allergy Verified 03/30/18 08:37 Home Medications Medication Instructions Recorded Confirmed Last Taken Type Warfarin [Coumadin] 5 mg PO DAILY@1700 #30 tablet 04/15/18 09/11/18 Unknown Rx Carvedilol [Coreg] 6.25 mg PO BID 07/28/18 09/11/18 Unknown History Docusate Sodium [Colace] 100 mg PO BID 07/28/18 09/11/18 Unknown History Ferrous Sulfate [Feosol] 325 mg PO DAILY 07/28/18 09/11/18 Unknown History Gabapentin [Neurontin] 300 mg PO Q8HR 07/28/18 09/11/18 Unknown History Insulin Glargine,Hum.rec.anlog 18 units SQ QHS 07/28/18 09/11/18 Unknown History [Lantus] Lisinopril [Zestril] 20 mg PO DAILY 07/28/18 09/11/18 Unknown History Lispro Insulin [Humalog] 25 unit SQ BID 07/28/18 09/11/18 Unknown History Mirtazapine [Remeron] 15 mg PO QHS 07/28/18 09/11/18 Unknown History Potassium Chloride 10 meq PO DAILY 07/28/18 09/11/18 Unknown History Quetiapine Fumarate [SEROquel] 50 mg PO QDAY 07/28/18 09/11/18 Unknown History Spironolactone 25 mg PO DAILY 07/28/18 09/11/18 Unknown History Terbinafine HCl [LamiSIL] 250 mg PO DAILY 07/28/18 09/11/18 Unknown History amLODIPine [Norvasc] 5 mg PO DAILY 07/28/18 09/11/18 Unknown History glipiZIDE [Glucotrol] 5 mg PO BID 07/28/18 09/11/18 Unknown History Furosemide [Lasix TAB] 40 mg PO DAILY 09/11/18 09/11/18 Unknown History Active Meds: Active Medications Acetaminophen (Tylenol) 650 mg PO Q4H PRN PRN Reason: Pain MILD(1-3)/Fever >100.5/LUI Famotidine (Pepcid) 20 mg PO BID KALE Hydromorphone HCl (Dilaudid) 0.5 mg IV Q3H PRN PRN Reason: Pain , Severe (7-10) Ondansetron HCl (Zofran) 4 mg IV Q8H PRN PRN Reason: Nausea And Vomiting Sodium Chloride (Sodium Chloride Flush Syringe 10 Ml) 10 ml IV BID KALE Sodium Chloride (Sodium Chloride Flush Syringe 10 Ml) 10 ml IV PRN PRN PRN Reason: LINE FLUSH Exam - Constitutional Vitals: Temp Pulse Resp BP Pulse Ox 98.2 F 75 16 155/94 98 09/12/18 03:44 09/12/18 03:44 09/12/18 03:44 09/12/18 03:44 09/12/18 03:44 General appearance: Present: no acute distress, well-nourished - EENT Eyes: Present: PERRL ENT: hearing intact, clear oral mucosa - Neck Neck: Present: supple, normal ROM - Respiratory Respiratory effort: normal Respiratory: bilateral: CTA - Cardiovascular Heart rate: 62 Rhythm: regular Heart Sounds: Present: S1 & S2. Absent: rub, click - Extremities Extremities: no ischemia, pulses intact, pulses symmetrical, No edema Peripheral Pulses: within normal limits - Abdominal General gastrointestinal: Present: soft, non-tender, non-distended, normal bowel sounds Male genitourinary: Present: normal - Integumentary Integumentary: Present: clear, warm, dry - Musculoskeletal Musculoskeletal: gait normal, strength equal bilaterally - Psychiatric Psychiatric: appropriate mood/affect, intact judgment & insight - Neurologic Neurologic: CNII-XII intact, moves all extremities - Allied Health Allied health notes reviewed: nursing, case management Results - Labs CBC & Chem 7: 09/11/18 09:16 09/11/18 09:16 Labs: Laboratory Last Values WBC 5.0 K/mm3 (4.5-11.0) 09/11/18 09:16 RBC 3.82 M/mm3 (3.65-5.03) 09/11/18 09:16 Hgb 10.3 gm/dl (11.8-15.2) L 09/11/18 09:16 Hct 31.9 % (35.5-45.6) L 09/11/18 09:16 MCV 84 fl (84-94) 09/11/18 09:16 MCH 27 pg (28-32) L 09/11/18 09:16 MCHC 32 % (32-34) 09/11/18 09:16 RDW 18.5 % (13.2-15.2) H 09/11/18 09:16 Plt Count 311 K/mm3 (140-440) 09/11/18 09:16 [place] % (Auto) Director Product Safety 09/11/18 09:16 Add Manual Diff Complete 09/11/18 09:16 Total Counted 100 09/11/18 09:16 Seg Neuts % (Manual) 56.0 % (40.0-70.0) 09/11/18 09:16 Band Neutrophils % 0 % 09/11/18 09:16 Lymphocytes % (Manual) 25.0 % (13.4-35.0) 09/11/18 09:16 Reactive Lymphs % (Man) 0 % 09/11/18 09:16 Monocytes % (Manual) 12.0 % (0.0-7.3) H 09/11/18 09:16 Eosinophils % (Manual) 7.0 % (0.0-4.3) H 09/11/18 09:16 Basophils % (Manual) 0 % (0.0-1.8) 09/11/18 09:16 Metamyelocytes % 0 % 09/11/18 09:16 Myelocytes % 0 % 09/11/18 09:16 Promyelocytes % 0 % 09/11/18 09:16 Blast Cells % 0 % 09/11/18 09:16 Nucleated RBC % Not Reportable 09/11/18 09:16 Seg Neutrophils # Man 2.8 K/mm3 (1.8-7.7) 09/11/18 09:16 Band Neutrophils # 0.0 K/mm3 09/11/18 09:16 Lymphocytes # (Manual) 1.3 K/mm3 (1.2-5.4) 09/11/18 09:16 Abs React Lymphs (Man) 0.0 K/mm3 09/11/18 09:16 Monocytes # (Manual) 0.6 K/mm3 (0.0-0.8) 09/11/18 09:16 Eosinophils # (Manual) 0.4 K/mm3 (0.0-0.4) 09/11/18 09:16 Basophils # (Manual) 0.0 K/mm3 (0.0-0.1) 09/11/18 09:16 Metamyelocytes # 0.0 K/mm3 09/11/18 09:16 Myelocytes # 0.0 K/mm3 09/11/18 09:16 Promyelocytes # 0.0 K/mm3 09/11/18 09:16 Blast Cells # 0.0 K/mm3 09/11/18 09:16 WBC Morphology Not Reportable 09/11/18 09:16 Hypersegmented Neuts Not Reportable 09/11/18 09:16 Hyposegmented Neuts Not Reportable 09/11/18 09:16 Hypogranular Neuts Not Reportable 09/11/18 09:16 Smudge Cells Not Reportable 09/11/18 09:16 Toxic Granulation Not Reportable 09/11/18 09:16 Toxic Vacuolation Not Reportable 09/11/18 09:16 Dohle Bodies Not Reportable 09/11/18 09:16 Pelger-Huet Anomaly Not Reportable 09/11/18 09:16 Angi Rods Not Reportable 09/11/18 09:16 Platelet Estimate Consistent w auto 09/11/18 09:16 Clumped Platelets Not Reportable 09/11/18 09:16 Plt Clumps, EDTA Not Reportable 09/11/18 09:16 Large Platelets Rare 09/11/18 09:16 Giant Platelets Not Reportable 09/11/18 09:16 Platelet Satelliting Not Reportable 09/11/18 09:16 Plt Morphology Comment Not Reportable 09/11/18 09:16 RBC Morphology Not Reportable 09/11/18 09:16 Dimorphic RBCs Not Reportable 09/11/18 09:16 Polychromasia Not Reportable 09/11/18 09:16 Hypochromasia Not Reportable 09/11/18 09:16 Poikilocytosis 1+ 09/11/18 09:16 Anisocytosis 1+ 09/11/18 09:16 Microcytosis Not Reportable 09/11/18 09:16 Macrocytosis Not Reportable 09/11/18 09:16 Spherocytes Not Reportable 09/11/18 09:16 Pappenheimer Bodies Not Reportable 09/11/18 09:16 Sickle Cells Not Reportable 09/11/18 09:16 Target Cells Not Reportable 09/11/18 09:16 Tear Drop Cells Not Reportable 09/11/18 09:16 Ovalocytes Few 09/11/18 09:16 Helmet Cells Not Reportable 09/11/18 09:16 [place] Bodies Not Reportable 09/11/18 09:16 [place] Rings Not Reportable 09/11/18 09:16 Allison Cells Not Reportable 09/11/18 09:16 Bite Cells Not Reportable 09/11/18 09:16 Crenated Cell Not Reportable 09/11/18 09:16 Elliptocytes 1+ 09/11/18 09:16 Acanthocytes (Spur) Not Reportable 09/11/18 09:16 Rouleaux Not Reportable 09/11/18 09:16 Hemoglobin C Crystals Not Reportable 09/11/18 09:16 Schistocytes Not Reportable 09/11/18 09:16 Malaria parasites Not Reportable 09/11/18 09:16 Davi Bodies Not Reportable 09/11/18 09:16 Hem Pathologist Commnt No 09/11/18 09:16 PT 15.4 Sec. (12.2-14.9) H 09/11/18 10:24 INR 1.15 (0.87-1.13) H 09/11/18 10:24 APTT 28.1 Sec. (24.2-36.6) 09/11/18 10:24 Sodium 139 mmol/L (137-145) 09/11/18 09:16 Potassium 4.2 mmol/L (3.6-5.0) 09/11/18 09:16 Chloride 101.8 mmol/L (98-107) 09/11/18 09:16 Carbon Dioxide 30 mmol/L (22-30) 09/11/18 09:16 Anion Gap 11 mmol/L 09/11/18 09:16 BUN 12 mg/dL (9-20) 09/11/18 09:16 Creatinine 1.0 mg/dL (0.8-1.5) 09/11/18 09:16 Estimated GFR > 60 ml/min 09/11/18 09:16 BUN/Creatinine Ratio 12 % 09/11/18 09:16 Glucose 213 mg/dL (75-100) H 09/11/18 09:16 Calcium 8.5 mg/dL (8.4-10.2) 09/11/18 09:16 Troponin T 0.011 ng/mL (0.00-0.029) 09/11/18 09:16 NT-Pro-B Natriuret Pep 4198 pg/mL (0-900) H 09/11/18 09:16 Plasma/Serum Alcohol < 0.01 % (0-0.07) 09/11/18 10:24 Short CBC 09/11/18 Range/Units 09:16 WBC 5.0 (4.5-11.0) K/mm3 Hgb 10.3 L (11.8-15.2) gm/dl Hct 31.9 L (35.5-45.6) % Plt Count 311 (140-440) K/mm3 BMP 09/11/18 09:16 Sodium 139 Potassium 4.2 Chloride 101.8 Carbon Dioxide 30 BUN 12 Creatinine 1.0 Glucose 213 H Calcium 8.5 Cardiac Enzymes 09/11/18 Range/Units 09:16 Troponin T 0.011 (0.00-0.029) ng/mL - Imaging and Cardiology EKG: report reviewed (NSR 62/min) CT Scan - head: report reviewed Imaging and Cardiology: Head Ct IMPRESSION: Evidence of atrophy and microangiopathic ischemic disease. Multiple chronic infarcts as described above which appear unchanged since 04/11/18. No acute intracranial process is identified. Assessment and Plan Advance Directives: Yes (Full code) VTE prophylaxis?: Chemical Plan of care discussed with patient/family: Yes - Patient Problems (1) Syncope Current Visit: Yes Status: Acute Plan to address problem: Syncope W/u Check ECHO CDS (2) IDDM (insulin dependent diabetes mellitus) Current Visit: Yes Status: Chronic Plan to address problem: Cont Home Insulin and covrage Check A1c (3) Hypertension Current Visit: No Status: Chronic Qualifiers: Hypertension type: essential hypertension Qualified Code(s): I10 - Essential (primary) hypertension Plan to address problem: Cont antihypertensives (4) Anemia Current Visit: Yes Status: Chronic Qualifiers: Anemia type: iron deficiency Plan to address problem: Cont Ferrous sulfate (5) CHF (congestive heart failure) Current Visit: Yes Status: Chronic Qualifiers: Heart failure type: combined systolic and diastolic Plan to address problem: Cont lasix (6) Anticoagulant long-term use Current Visit: Yes Status: Chronic Plan to address problem: Monitot Protime (7) DVT prophylaxis Current Visit: No Status: Acute Plan to address problem: On Lovenox and GI prophylaxis
[2018-09-12] MEDS ORDERED: PERCOCET 5/325 PO PRN (07:42)
[2018-09-12] MEDS ORDERED: LEXISCAN IV ONE (09:00)
[2018-09-12 09:41] LABS: Basophils # (Auto) 0.1 K/mm3 (0.0-0.1); Basophils % (Auto) 1.3 % (0.0-1.8); Eosinophils # (Auto) 0.3 K/mm3 (0.0-0.4); Eosinophils % (Auto) 5.7 % (0.0-4.3); Hematocrit 33.8 % (35.5-45.6); Lymphocytes # (Auto) 1.3 K/mm3 (1.2-5.4); Mean Corpuscular HGB Conc 33 % (32-34); Mean Corpuscular Volume 83 fl (84-94); Monocytes # (Auto) 0.7 K/mm3 (0.0-0.8); Monocytes % (Auto) 14.5 % (0.0-7.3); Platelet Count 306 K/mm3 (140-440); Red Blood Count 4.08 M/mm3 (3.65-5.03); Red Cell Distribution Width 18.3 % (13.2-15.2)
[2018-09-12] MEDS ORDERED: LASIX PO SCH (10:00)
[2018-09-12] MEDS ORDERED: NON-FORMULARY (Quetiapine Fumarate [Seroquel] 50 MG) PO SCH (10:00)
[2018-09-12] MEDS ORDERED: SODIUM CHLORIDE FLUSH SYRINGE 10 ML IV SCH (10:00)
[2018-09-12 10:10] LABS: Alanine Aminotransferase 14 units/L (7-56); Albumin 3.2 g/dL (3.9-5); BUN/Creatinine Ratio 11; Blood Urea Nitrogen 10 mg/dL (9-20); Calcium 8.8 mg/dL (8.4-10.2); Hemolysis Index 15
--- NOTE | 2018-09-12 10:21 | Progress Note ---
Assessment and Plan Assessment and plan: Syncope etiology unclear Get Echo Consult [facility] [facility] Patient has a history of left ventricular thrombus and was on Coumadin. However he tells me he was taken off Coumadin about a month ago and is no longer taking Coumadin Will give Lovenox 1mg/kg q12h for now until verified Acute on chronic systolic CHF Hospital edema on chest x-ray Start Lasix 40 mg IV every 12 hours History of LV thrombus he says he was taken off Coumadin , 1 month ago Will discontinue Coumadin Cardiology to evaluate Repeat Echo Diabetes mellitus type 2 CAD s/p OK s/p 9 coronary stents History of stroke with residual left-sided weakness Full code status History Interval history: Syncope No chest pain says he was taken off Coumadin about 1 month ago-does not take Coumadin anymore Hospitalist Physical - Physical exam Narrative exam: GEN: Not in acute distress, lying in bed, obese HEENT: Normocephalic, atraumatic, Neck: supple, No JVD heart: S1 and S2 reg, no murmurs, rubs or gallop Lungs: Bilateral basal crackles, no wheeze Abd:soft, non tender, non distended,. normal bowel sounds Ext: Edema both lower ext, no cyanosis Neuro:Awake,alert,oriented X 3, residual left sided weaknes Psych: normal mood - Constitutional Vitals: Temp Pulse Resp BP Pulse Ox 97.8 F 68 16 149/101 96 09/12/18 09:18 09/12/18 09:18 09/12/18 09:18 09/12/18 09:18 09/12/18 09:18 General appearance: Present: no acute distress, well-nourished Results - Labs CBC & Chem 7: 09/12/18 09:02 09/13/18 07:02 Labs: Laboratory Last Values WBC 5.0 K/mm3 (4.5-11.0) 09/12/18 09:02 RBC 4.08 M/mm3 (3.65-5.03) 09/12/18 09:02 Hgb 11.0 gm/dl (11.8-15.2) L 09/12/18 09:02 Hct 33.8 % (35.5-45.6) L 09/12/18 09:02 MCV 83 fl (84-94) L 09/12/18 09:02 MCH 27 pg (28-32) L 09/12/18 09:02 MCHC 33 % (32-34) 09/12/18 09:02 RDW 18.3 % (13.2-15.2) H 09/12/18 09:02 Plt Count 306 K/mm3 (140-440) 09/12/18 09:02 Lymph % (Auto) 25.0 % (13.4-35.0) 09/12/18 09:02 [place] % (Auto) 14.5 % (0.0-7.3) H 09/12/18 09:02 Eos % (Auto) 5.7 % (0.0-4.3) H 09/12/18 09:02 Baso % (Auto) 1.3 % (0.0-1.8) 09/12/18 09:02 Lymph # 1.3 K/mm3 (1.2-5.4) 09/12/18 09:02 [place] # 0.7 K/mm3 (0.0-0.8) 09/12/18 09:02 Eos # 0.3 K/mm3 (0.0-0.4) 09/12/18 09:02 Baso # 0.1 K/mm3 (0.0-0.1) 09/12/18 09:02 Add Manual Diff Complete 09/11/18 09:16 Total Counted 100 09/11/18 09:16 Seg Neutrophils % 53.5 % (40.0-70.0) 09/12/18 09:02 Seg Neuts % (Manual) 56.0 % (40.0-70.0) 09/11/18 09:16 Band Neutrophils % 0 % 09/11/18 09:16 Lymphocytes % (Manual) 25.0 % (13.4-35.0) 09/11/18 09:16 Reactive Lymphs % (Man) 0 % 09/11/18 09:16 Monocytes % (Manual) 12.0 % (0.0-7.3) H 09/11/18 09:16 Eosinophils % (Manual) 7.0 % (0.0-4.3) H 09/11/18 09:16 Basophils % (Manual) 0 % (0.0-1.8) 09/11/18 09:16 Metamyelocytes % 0 % 09/11/18 09:16 Myelocytes % 0 % 09/11/18 09:16 Promyelocytes % 0 % 09/11/18 09:16 Blast Cells % 0 % 09/11/18 09:16 Nucleated RBC % Not Reportable 09/11/18 09:16 Seg Neutrophils # 2.7 K/mm3 (1.8-7.7) 09/12/18 09:02 Seg Neutrophils # Man 2.8 K/mm3 (1.8-7.7) 09/11/18 09:16 Band Neutrophils # 0.0 K/mm3 09/11/18 09:16 Lymphocytes # (Manual) 1.3 K/mm3 (1.2-5.4) 09/11/18 09:16 Abs React Lymphs (Man) 0.0 K/mm3 09/11/18 09:16 Monocytes # (Manual) 0.6 K/mm3 (0.0-0.8) 09/11/18 09:16 Eosinophils # (Manual) 0.4 K/mm3 (0.0-0.4) 09/11/18 09:16 Basophils # (Manual) 0.0 K/mm3 (0.0-0.1) 09/11/18 09:16 Metamyelocytes # 0.0 K/mm3 09/11/18 09:16 Myelocytes # 0.0 K/mm3 09/11/18 09:16 Promyelocytes # 0.0 K/mm3 09/11/18 09:16 Blast Cells # 0.0 K/mm3 09/11/18 09:16 WBC Morphology Not Reportable 09/11/18 09:16 Hypersegmented Neuts Not Reportable 09/11/18 09:16 Hyposegmented Neuts Not Reportable 09/11/18 09:16 Hypogranular Neuts Not Reportable 09/11/18 09:16 Smudge Cells Not Reportable 09/11/18 09:16 Toxic Granulation Not Reportable 09/11/18 09:16 Toxic Vacuolation Not Reportable 09/11/18 09:16 Dohle Bodies Not Reportable 09/11/18 09:16 Pelger-Huet Anomaly Not Reportable 09/11/18 09:16 Angi Rods Not Reportable 09/11/18 09:16 Platelet Estimate Consistent w auto 09/11/18 09:16 Clumped Platelets Not Reportable 09/11/18 09:16 Plt Clumps, EDTA Not Reportable 09/11/18 09:16 Large Platelets Rare 09/11/18 09:16 Giant Platelets Not Reportable 09/11/18 09:16 Platelet Satelliting Not Reportable 09/11/18 09:16 Plt Morphology Comment Not Reportable 09/11/18 09:16 RBC Morphology Not Reportable 09/11/18 09:16 Dimorphic RBCs Not Reportable 09/11/18 09:16 Polychromasia Not Reportable 09/11/18 09:16 Hypochromasia Not Reportable 09/11/18 09:16 Poikilocytosis 1+ 09/11/18 09:16 Anisocytosis 1+ 09/11/18 09:16 Microcytosis Not Reportable 09/11/18 09:16 Macrocytosis Not Reportable 09/11/18 09:16 Spherocytes Not Reportable 09/11/18 09:16 Pappenheimer Bodies Not Reportable 09/11/18 09:16 Sickle Cells Not Reportable 09/11/18 09:16 Target Cells Not Reportable 09/11/18 09:16 Tear Drop Cells Not Reportable 09/11/18 09:16 Ovalocytes Few 09/11/18 09:16 Helmet Cells Not Reportable 09/11/18 09:16 [place] Bodies Not Reportable 09/11/18 09:16 [place] Rings Not Reportable 09/11/18 09:16 Allison Cells Not Reportable 09/11/18 09:16 Bite Cells Not Reportable 09/11/18 09:16 Crenated Cell Not Reportable 09/11/18 09:16 Elliptocytes 1+ 09/11/18 09:16 Acanthocytes (Spur) Not Reportable 09/11/18 09:16 Rouleaux Not Reportable 09/11/18 09:16 Hemoglobin C Crystals Not Reportable 09/11/18 09:16 Schistocytes Not Reportable 09/11/18 09:16 Malaria parasites Not Reportable 09/11/18 09:16 Davi Bodies Not Reportable 09/11/18 09:16 Hem Pathologist Commnt No 09/11/18 09:16 PT 15.4 Sec. (12.2-14.9) H 09/11/18 10:24 INR 1.15 (0.87-1.13) H 09/11/18 10:24 APTT 28.1 Sec. (24.2-36.6) 09/11/18 10:24 Sodium 140 mmol/L (137-145) 09/12/18 09:02 Potassium 4.6 mmol/L (3.6-5.0) 09/12/18 09:02 Chloride 102.0 mmol/L (98-107) 09/12/18 09:02 Carbon Dioxide 27 mmol/L (22-30) 09/12/18 09:02 Anion Gap 16 mmol/L 09/12/18 09:02 BUN 10 mg/dL (9-20) 09/12/18 09:02 Creatinine 0.9 mg/dL (0.8-1.5) 09/12/18 09:02 Estimated GFR > 60 ml/min 09/12/18 09:02 BUN/Creatinine Ratio 11 % 09/12/18 09:02 Glucose 216 mg/dL (75-100) H 09/12/18 09:02 POC Glucose 199 (70-105) H 09/12/18 08:30 Calcium 8.8 mg/dL (8.4-10.2) 09/12/18 09:02 Total Bilirubin 1.90 mg/dL (0.1-1.2) H 09/12/18 09:02 AST 16 units/L (5-40) 09/12/18 09:02 ALT 14 units/L (7-56) 09/12/18 09:02 Alkaline Phosphatase 112 units/L (35-129) 09/12/18 09:02 Troponin T < 0.010 ng/mL (0.00-0.029) 09/12/18 09:02 NT-Pro-B Natriuret Pep 4198 pg/mL (0-900) H 09/11/18 09:16 Total Protein 6.0 g/dL (6.3-8.2) L 09/12/18 09:02 Albumin 3.2 g/dL (3.9-5) L 09/12/18 09:02 Albumin/Globulin Ratio 1.1 % 09/12/18 09:02 Plasma/Serum Alcohol < 0.01 % (0-0.07) 09/11/18 10:24 Active Medications - Current Medications Current Medications: Generic Name Dose Route Start Last Admin Trade Name Freq PRN Reason Stop Dose Admin Acetaminophen 650 mg 09/12/18 01:28 Tylenol PO Q4H PRN Pain MILD(1-3)/Fever >100.5/LUI Acetaminophen 650 mg 09/12/18 07:42 Tylenol PO Q4H PRN Pain MILD(1-3)/Fever >100.5/LUI Amlodipine Besylate 5 mg 09/12/18 10:00 Norvasc PO DAILY [facility] Carvedilol 6.25 mg 09/12/18 10:00 Coreg PO BID [facility] Docusate Sodium 100 mg 09/12/18 10:00 Colace PO BID [facility] Enoxaparin Sodium 80 mg 09/12/18 10:00 Lovenox SUB-Q Q12HR [facility] Famotidine 20 mg 09/12/18 10:00 Pepcid PO BID [facility] Ferrous Sulfate 325 mg 09/12/18 10:00 Feosol PO DAILY [facility] Furosemide 40 mg 09/12/18 09:00 Lasix IV Q12H [facility] Gabapentin 300 mg 09/12/18 08:00 Neurontin PO Q8H [facility] Glipizide 5 mg 09/12/18 09:00 Glucotrol PO BIDDIAB [facility] Hydromorphone HCl 0.5 mg 09/12/18 01:28 Dilaudid IV Q3H PRN Pain , Severe (7-10) Insulin Glargine 18 units 09/12/18 22:00 Lantus SUB-Q QHS [facility] Insulin Human Lispro 0 unit 09/12/18 11:30 Humalog SUB-Q [facility] Protocol Mirtazapine 15 mg 09/12/18 22:00 Remeron PO QHS [facility] Ondansetron HCl 4 mg 09/12/18 07:42 Zofran IV Q8H PRN Nausea And Vomiting Oxycodone/Acetaminophen 1 tab 09/12/18 07:42 Percocet 5/325 PO Q6H PRN Pain, Moderate (4-6) Potassium Chloride 10 meq 09/12/18 10:00 K-Dur PO QDAY [facility] Quetiapine Fumarate 50 mg 09/12/18 10:00 Seroquel PO DAILY [facility] Sodium Chloride 10 ml 09/12/18 10:00 Sodium Chloride Flush Syringe 10 Ml IV BID [facility] Sodium Chloride 10 ml 09/12/18 07:42 Sodium Chloride Flush Syringe 10 Ml IV PRN PRN LINE FLUSH Spironolactone 25 mg 09/12/18 10:00 Aldactone PO DAILY KALE
[2018-09-12] MEDS: FEOSOL PO SCH (11:00)
[2018-09-12] MEDS: COREG PO SCH ×2 (11:01→21:28)
[2018-09-12] MEDS: LASIX IV SCH ×2 (11:01→21:28)
[2018-09-12] MEDS: K-DUR PO SCH (11:01)
[2018-09-12] MEDS: COLACE PO SCH ×2 (11:01→21:28)
[2018-09-12] MEDS: PEPCID PO SCH ×2 (11:01→21:28)
[2018-09-12] MEDS: NORVASC PO SCH (11:03)
[2018-09-12] MEDS: LOVENOX SUB-Q SCH ×2 (11:03→21:28)
[2018-09-12] MEDS: ALDACTONE PO SCH (11:03)
[2018-09-12] MEDS: GLUCOTROL PO SCH ×2 (11:12→17:20)
[2018-09-12] MEDS: NEURONTIN PO SCH ×2 (11:12→17:20)
[2018-09-12] MEDS: SODIUM CHLORIDE FLUSH SYRINGE 10 ML IV SCH ×2 (11:15→21:30)
--- NOTE | 2018-09-12 11:27 | Vascular Lab Report ---
PROCEDURE: VL CAROTID DUPLEX BILAT TECHNIQUE: Carotid duplex Doppler ultrasound. Grayscale, color flow and spectral waveform imaging per formed. HISTORY: syncope COMPARISON: None FINDINGS: There is mild plaque bilaterally. There is no abnormal elevation in flow velocity seen. ICA/CCA velocity ratios are normal, 0.59 on the right and 0.79 on the left. There is no evidence of any hemodynamically significant stenosis. Specif ically, findings indicate stenoses of less than 50%. Vertebral artery flow is antegrade bilaterally. IMPRESSION: No evidence of a hemodynamically significant stenosis. This document is electronically signed by Becky Morse MD., September 12 2018 11:25:46 AM ET
[2018-09-12] MEDS: HumaLOG SUB-Q SCH ×3 (12:23→22:00)
--- NOTE | 2018-09-12 13:21 | Consultation ---
History of Present Illness Consult date: 09/12/18 Consult reason: congestive heart failure History of present illness: The patient is a 53-year-old man with a history of coronary artery disease and end-stage dilated cardiomyopathy. 8 months ago, his echocardiogram reported an ejection fraction of 10%. He has been on guideline directed medical therapy for heart failure, and admits that he was offered a cardiac defibrillator by his primary senior reservoir engineer but he declined. His echocardiogram also reported a laminated left ventricular apical thrombus, and he admits to having been on warfarin therapy and a past, but stopped, for unclear reasons. He presents to the hospital at this time with shortness of breath, lower extremity edema and his chest x-ray shows mild interstitial edema. He denies medication noncompliance, he denies dietary salt indiscretion. There is no chest pain, no palpitations and no syncope. EKG was normal sinus rhythm, left axis deviation, left ventricular hypertrophy, no acute ischemic changes. Past History Past Medical History: CAD, heart failure, hypertension Medications and Allergies Allergies Allergy/AdvReac Type Severity Reaction Status Date / Time No Known Allergies Allergy Verified 03/30/18 08:37 Home Medications Medication Instructions Recorded Confirmed Last Taken Type Warfarin [Coumadin] 5 mg PO DAILY@1700 #30 tablet 04/15/18 09/11/18 Unknown Rx Carvedilol [Coreg] 6.25 mg PO BID 07/28/18 09/11/18 Unknown History Docusate Sodium [Colace] 100 mg PO BID 07/28/18 09/11/18 Unknown History Ferrous Sulfate [Feosol] 325 mg PO DAILY 07/28/18 09/11/18 Unknown History Gabapentin [Neurontin] 300 mg PO Q8HR 07/28/18 09/11/18 Unknown History Insulin Glargine,Hum.rec.anlog 18 units SQ QHS 07/28/18 09/11/18 Unknown History [Lantus] Lisinopril [Zestril] 20 mg PO DAILY 07/28/18 09/11/18 Unknown History Lispro Insulin [Humalog] 25 unit SQ BID 07/28/18 09/11/18 Unknown History Mirtazapine [Remeron] 15 mg PO QHS 07/28/18 09/11/18 Unknown History Potassium Chloride 10 meq PO DAILY 07/28/18 09/11/18 Unknown History Quetiapine Fumarate [SEROquel] 50 mg PO QDAY 07/28/18 09/11/18 Unknown History Spironolactone 25 mg PO DAILY 07/28/18 09/11/18 Unknown History Terbinafine HCl [LamiSIL] 250 mg PO DAILY 07/28/18 09/11/18 Unknown History amLODIPine [Norvasc] 5 mg PO DAILY 07/28/18 09/11/18 Unknown History glipiZIDE [Glucotrol] 5 mg PO BID 07/28/18 09/11/18 Unknown History Furosemide [Lasix TAB] 40 mg PO DAILY 09/11/18 09/11/18 Unknown History Active Meds: Active Medications Acetaminophen (Tylenol) 650 mg PO Q4H PRN PRN Reason: Pain MILD(1-3)/Fever >100.5/LUI Amlodipine Besylate (Norvasc) 5 mg PO DAILY [facility] Last Admin: 09/12/18 11:03 Dose: 5 mg Documented by: Carvedilol (Coreg) 6.25 mg PO BID [facility] Last Admin: 09/12/18 11:01 Dose: 6.25 mg Documented by: Docusate Sodium (Colace) 100 mg PO BID [facility] Last Admin: 09/12/18 11:01 Dose: 100 mg Documented by: Enoxaparin Sodium (Lovenox) 80 mg SUB-Q Q12HR [facility] Last Admin: 09/12/18 11:03 Dose: 80 mg Documented by: Famotidine (Pepcid) 20 mg PO BID [facility] Last Admin: 09/12/18 11:01 Dose: 20 mg Documented by: Ferrous Sulfate (Feosol) 325 mg PO DAILY [facility] Last Admin: 09/12/18 11:00 Dose: 325 mg Documented by: Furosemide (Lasix) 40 mg IV Q12H [facility] Last Admin: 09/12/18 11:01 Dose: 40 mg Documented by: Gabapentin (Neurontin) 300 mg PO Q8H [facility] Last Admin: 09/12/18 11:12 Dose: 300 mg Documented by: Glipizide (Glucotrol) 5 mg PO BIDDIAB [facility] Last Admin: 09/12/18 11:12 Dose: 5 mg Documented by: Hydromorphone HCl (Dilaudid) 0.5 mg IV Q3H PRN PRN Reason: Pain , Severe (7-10) Insulin Glargine (Lantus) 18 units SUB-Q QHS [facility] Insulin Human Lispro (Humalog) 0 unit SUB-Q [facility]; Protocol Mirtazapine (Remeron) 15 mg PO QHS [facility] Ondansetron HCl (Zofran) 4 mg IV Q8H PRN PRN Reason: Nausea And Vomiting Oxycodone/Acetaminophen (Percocet 5/325) 1 tab PO Q6H PRN PRN Reason: Pain, Moderate (4-6) Potassium Chloride (K-Dur) 10 meq PO QDAY [facility] Last Admin: 09/12/18 11:01 Dose: 10 meq Documented by: Quetiapine Fumarate (Seroquel) 50 mg PO DAILY [facility] Last Admin: 09/12/18 11:01 Dose: 50 mg Documented by: Sodium Chloride (Sodium Chloride Flush Syringe 10 Ml) 10 ml IV BID [facility] Last Admin: 09/12/18 11:15 Dose: 10 ml Documented by: Sodium Chloride (Sodium Chloride Flush Syringe 10 Ml) 10 ml IV PRN PRN PRN Reason: LINE FLUSH Spironolactone (Aldactone) 25 mg PO DAILY [facility] Last Admin: 09/12/18 11:03 Dose: 25 mg Documented by: Review of Systems Cardiovascular: orthopnea, edema, shortness of breath, no chest pain, no palpitations, no rapid/irregular heart beat, no syncope, no lightheadedness Physical Examination Vital Signs Temp Pulse Resp BP Pulse Ox 98.6 F 90 18 146/90 97 09/11/18 08:56 09/11/18 08:56 09/11/18 08:56 09/11/18 08:56 09/11/18 08:56 General appearance: no acute distress HEENT: Positive: PERRL Neck: Positive: neck supple Cardiac: Positive: Reg Rate and Rhythm Lungs: Positive: Decreased Breath Sounds Neuro: Positive: Grossly Intact Abdomen: Positive: Soft Male genitourinary: Positive: deferred Skin: Positive: Clear Extremities: Present: +1 Edema Results 09/12/18 09:02 09/12/18 09:02 Cardiac Enzymes 09/12/18 Range/Units 09:02 AST 16 (5-40) units/L CBC 09/12/18 Range/Units 09:02 WBC 5.0 (4.5-11.0) K/mm3 RBC 4.08 (3.65-5.03) M/mm3 Hgb 11.0 L (11.8-15.2) gm/dl Hct 33.8 L (35.5-45.6) % Plt Count 306 (140-440) K/mm3 Lymph # 1.3 (1.2-5.4) K/mm3 [place] # 0.7 (0.0-0.8) K/mm3 Eos # 0.3 (0.0-0.4) K/mm3 Baso # 0.1 (0.0-0.1) K/mm3 Comprehensive Metabolic Panel 09/12/18 Range/Units 09:02 Sodium 140 (137-145) mmol/L Potassium 4.6 (3.6-5.0) mmol/L Chloride 102.0 (98-107) mmol/L Carbon Dioxide 27 (22-30) mmol/L BUN 10 (9-20) mg/dL Creatinine 0.9 (0.8-1.5) mg/dL Glucose 216 H (75-100) mg/dL Calcium 8.8 (8.4-10.2) mg/dL AST 16 (5-40) units/L ALT 14 (7-56) units/L Alkaline Phosphatase 112 (35-129) units/L Total Protein 6.0 L (6.3-8.2) g/dL Albumin 3.2 L (3.9-5) g/dL EKG interpretations - Telemetry EKG Rhythm: Sinus Rhythm Assessment and Plan - Patient Problems (1) Acute on chronic systolic heart failure Current Visit: Yes Status: Acute Plan to address problem: Medical therapy including intravenous diuretics, spironolactone, afterload agents and beta blockers. Salt restricted diet, daily weights and free water restriction to 1.5-2 L daily. Obtain outpatient records, to determine circumstances of cessation of warfarin. If no contraindications, patient needs to be resumed on warfarin for history of apical left ventricular thrombus.
[2018-09-12] MEDS ORDERED: COUMADIN PO SCH (17:00)
[2018-09-12] MEDS: REMERON PO SCH (21:27)
[2018-09-12] MEDS: LANTUS SUB-Q SCH (22:00)
[2018-09-13] MEDS: NEURONTIN PO SCH ×3 (00:56→16:46)
[2018-09-13 07:29] LABS: INR 1.06 (0.87-1.13)
[2018-09-13 07:32] LABS: BUN/Creatinine Ratio 13; Blood Urea Nitrogen 12 mg/dL (9-20); Calcium 8.7 mg/dL (8.4-10.2); Hemolysis Index 136
[2018-09-13] MEDS: GLUCOTROL PO SCH ×2 (08:10→16:46)
[2018-09-13 08:16] LABS: Basophils % (Auto) 0.9 % (0.0-1.8); Eosinophils # (Auto) 0.3 K/mm3 (0.0-0.4); Eosinophils % (Auto) 6.3 % (0.0-4.3); Hematocrit 34.6 % (35.5-45.6); Hemoglobin 11.1 gm/dl (11.8-15.2); Lymphocytes # (Auto) 1.5 K/mm3 (1.2-5.4); Mean Corpuscular HGB Conc 32 % (32-34); Mean Corpuscular Volume 84 fl (84-94); Monocytes # (Auto) 0.7 K/mm3 (0.0-0.8); Monocytes % (Auto) 14.9 % (0.0-7.3); Platelet Count 337 K/mm3 (140-440); Red Blood Count 4.14 M/mm3 (3.65-5.03); Red Cell Distribution Width 18.4 % (13.2-15.2)
[2018-09-13] MEDS: LASIX IV SCH ×2 (09:56→21:45)
[2018-09-13] MEDS: ALDACTONE PO SCH (10:56)
[2018-09-13] MEDS: K-DUR PO SCH (10:57)
[2018-09-13] MEDS: PEPCID PO SCH ×2 (11:57→22:30)
[2018-09-13] MEDS: NORVASC PO SCH (11:57)
[2018-09-13] MEDS: FEOSOL PO SCH (11:57)
[2018-09-13] MEDS: COREG PO SCH ×2 (11:58→22:31)
[2018-09-13] MEDS: LOVENOX SUB-Q SCH ×2 (11:58→22:32)
[2018-09-13] MEDS: COLACE PO SCH ×2 (11:58→22:30)
[2018-09-13] MEDS: HumaLOG SUB-Q SCH ×3 (12:07→22:32)
--- NOTE | 2018-09-13 12:13 | Progress Note ---
Assessment and Plan Assessment and plan: Syncope etiology unclear Get Echo Consulted [place] [facility] Patient has a history of left ventricular thrombus and was on Coumadin. However he tells me he was taken off Coumadin about a month ago and is no longer taking Coumadin Continue Lovenox 1mg/kg q12h Will resume Coumadin, since patient cannot tell Physician that stopped Coumadin, and Cardiology recommends resuming if no contraindications. He denies any history of bleeding. Acute on chronic systolic CHF Pulm edema on chest x-ray cont Lasix 40 mg IV every 12 hours History of LV thrombus he says he was taken off Coumadin , 1 month ago Will resume Coumadin as recommended by cardiology. Cardiology following Repeat Echo Diabetes mellitus type 2 Accuchek qac and hs CAD s/p SD s/p 9 coronary stents History of stroke with residual left-sided weakness Full code status History Interval history: Syncope No chest pain says he was taken off Coumadin about 1 month ago-does not take Coumadin anymore Hospitalist Physical - Physical exam Narrative exam: GEN: Not in acute distress, lying in bed, obese HEENT: Normocephalic, atraumatic, Neck: supple, No JVD heart: S1 and S2 reg, no murmurs, rubs or gallop Lungs: Bilateral basal crackles, no wheeze Abd:soft, non tender, non distended,. normal bowel sounds Ext: Edema both lower ext, no cyanosis Neuro:Awake,alert,oriented X 3, residual left sided weaknes Psych: normal mood - Constitutional Vitals: Temp Pulse Resp BP Pulse Ox 97.6 F 65 20 124/87 96 09/13/18 05:25 09/13/18 05:25 09/13/18 05:25 09/13/18 05:25 09/13/18 05:25 General appearance: Present: no acute distress, well-nourished Results - Labs CBC & Chem 7: 09/13/18 06:47 09/13/18 07:02 Labs: Laboratory Last Values WBC 4.9 K/mm3 (4.5-11.0) 09/13/18 06:47 RBC 4.14 M/mm3 (3.65-5.03) 09/13/18 06:47 Hgb 11.1 gm/dl (11.8-15.2) L 09/13/18 06:47 Hct 34.6 % (35.5-45.6) L 09/13/18 06:47 MCV 84 fl (84-94) 09/13/18 06:47 MCH 27 pg (28-32) L 09/13/18 06:47 MCHC 32 % (32-34) 09/13/18 06:47 RDW 18.4 % (13.2-15.2) H 09/13/18 06:47 Plt Count 337 K/mm3 (140-440) 09/13/18 06:47 Lymph % (Auto) 31.0 % (13.4-35.0) 09/13/18 06:47 [place] % (Auto) 14.9 % (0.0-7.3) H 09/13/18 06:47 Eos % (Auto) 6.3 % (0.0-4.3) H 09/13/18 06:47 Baso % (Auto) 0.9 % (0.0-1.8) 09/13/18 06:47 Lymph # 1.5 K/mm3 (1.2-5.4) 09/13/18 06:47 [place] # 0.7 K/mm3 (0.0-0.8) 09/13/18 06:47 Eos # 0.3 K/mm3 (0.0-0.4) 09/13/18 06:47 Baso # 0.0 K/mm3 (0.0-0.1) 09/13/18 06:47 Add Manual Diff Complete 09/11/18 09:16 Total Counted 100 09/11/18 09:16 Seg Neutrophils % 46.9 % (40.0-70.0) 09/13/18 06:47 Seg Neuts % (Manual) 56.0 % (40.0-70.0) 09/11/18 09:16 Band Neutrophils % 0 % 09/11/18 09:16 Lymphocytes % (Manual) 25.0 % (13.4-35.0) 09/11/18 09:16 Reactive Lymphs % (Man) 0 % 09/11/18 09:16 Monocytes % (Manual) 12.0 % (0.0-7.3) H 09/11/18 09:16 Eosinophils % (Manual) 7.0 % (0.0-4.3) H 09/11/18 09:16 Basophils % (Manual) 0 % (0.0-1.8) 09/11/18 09:16 Metamyelocytes % 0 % 09/11/18 09:16 Myelocytes % 0 % 09/11/18 09:16 Promyelocytes % 0 % 09/11/18 09:16 Blast Cells % 0 % 09/11/18 09:16 Nucleated RBC % Not Reportable 09/11/18 09:16 Seg Neutrophils # 2.3 K/mm3 (1.8-7.7) 09/13/18 06:47 Seg Neutrophils # Man 2.8 K/mm3 (1.8-7.7) 09/11/18 09:16 Band Neutrophils # 0.0 K/mm3 09/11/18 09:16 Lymphocytes # (Manual) 1.3 K/mm3 (1.2-5.4) 09/11/18 09:16 Abs React Lymphs (Man) 0.0 K/mm3 09/11/18 09:16 Monocytes # (Manual) 0.6 K/mm3 (0.0-0.8) 09/11/18 09:16 Eosinophils # (Manual) 0.4 K/mm3 (0.0-0.4) 09/11/18 09:16 Basophils # (Manual) 0.0 K/mm3 (0.0-0.1) 09/11/18 09:16 Metamyelocytes # 0.0 K/mm3 09/11/18 09:16 Myelocytes # 0.0 K/mm3 09/11/18 09:16 Promyelocytes # 0.0 K/mm3 09/11/18 09:16 Blast Cells # 0.0 K/mm3 09/11/18 09:16 WBC Morphology Not Reportable 09/11/18 09:16 Hypersegmented Neuts Not Reportable 09/11/18 09:16 Hyposegmented Neuts Not Reportable 09/11/18 09:16 Hypogranular Neuts Not Reportable 09/11/18 09:16 Smudge Cells Not Reportable 09/11/18 09:16 Toxic Granulation Not Reportable 09/11/18 09:16 Toxic Vacuolation Not Reportable 09/11/18 09:16 Dohle Bodies Not Reportable 09/11/18 09:16 Pelger-Huet Anomaly Not Reportable 09/11/18 09:16 Angi Rods Not Reportable 09/11/18 09:16 Platelet Estimate Consistent w auto 09/11/18 09:16 Clumped Platelets Not Reportable 09/11/18 09:16 Plt Clumps, EDTA Not Reportable 09/11/18 09:16 Large Platelets Rare 09/11/18 09:16 Giant Platelets Not Reportable 09/11/18 09:16 Platelet Satelliting Not Reportable 09/11/18 09:16 Plt Morphology Comment Not Reportable 09/11/18 09:16 RBC Morphology Not Reportable 09/11/18 09:16 Dimorphic RBCs Not Reportable 09/11/18 09:16 Polychromasia Not Reportable 09/11/18 09:16 Hypochromasia Not Reportable 09/11/18 09:16 Poikilocytosis 1+ 09/11/18 09:16 Anisocytosis 1+ 09/11/18 09:16 Microcytosis Not Reportable 09/11/18 09:16 Macrocytosis Not Reportable 09/11/18 09:16 Spherocytes Not Reportable 09/11/18 09:16 Pappenheimer Bodies Not Reportable 09/11/18 09:16 Sickle Cells Not Reportable 09/11/18 09:16 Target Cells Not Reportable 09/11/18 09:16 Tear Drop Cells Not Reportable 09/11/18 09:16 Ovalocytes Few 09/11/18 09:16 Helmet Cells Not Reportable 09/11/18 09:16 [place] Bodies Not Reportable 09/11/18 09:16 [place] Rings Not Reportable 09/11/18 09:16 [place] Cells Not Reportable 09/11/18 09:16 Bite Cells Not Reportable 09/11/18 09:16 Crenated Cell Not Reportable 09/11/18 09:16 Elliptocytes 1+ 09/11/18 09:16 Acanthocytes (Spur) Not Reportable 09/11/18 09:16 Rouleaux Not Reportable 09/11/18 09:16 Hemoglobin C Crystals Not Reportable 09/11/18 09:16 Schistocytes Not Reportable 09/11/18 09:16 Malaria parasites Not Reportable 09/11/18 09:16 Davi Bodies Not Reportable 09/11/18 09:16 Hem Pathologist Commnt No 09/11/18 09:16 PT 14.5 Sec. (12.2-14.9) 09/13/18 07:02 INR 1.06 (0.87-1.13) 09/13/18 07:02 APTT 28.1 Sec. (24.2-36.6) 09/11/18 10:24 Sodium 137 mmol/L (137-145) 09/13/18 07:02 Potassium 4.6 mmol/L (3.6-5.0) 09/13/18 07:02 Chloride 99.8 mmol/L (98-107) 09/13/18 07:02 Carbon Dioxide 26 mmol/L (22-30) 09/13/18 07:02 Anion Gap 16 mmol/L 09/13/18 07:02 BUN 12 mg/dL (9-20) 09/13/18 07:02 Creatinine 0.9 mg/dL (0.8-1.5) 09/13/18 07:02 Estimated GFR > 60 ml/min 09/13/18 07:02 BUN/Creatinine Ratio 13 % 09/13/18 07:02 Glucose 154 mg/dL (75-100) H 09/13/18 07:02 POC Glucose 218 (70-105) H 09/13/18 12:00 Hemoglobin A1c 10.2 % (4-6) H 09/12/18 09:02 Calcium 8.7 mg/dL (8.4-10.2) 09/13/18 07:02 Total Bilirubin 1.90 mg/dL (0.1-1.2) H 09/12/18 09:02 AST 16 units/L (5-40) 09/12/18 09:02 ALT 14 units/L (7-56) 09/12/18 09:02 Alkaline Phosphatase 112 units/L (35-129) 09/12/18 09:02 Troponin T < 0.010 ng/mL (0.00-0.029) 09/12/18 14:17 NT-Pro-B Natriuret Pep 4198 pg/mL (0-900) H 09/11/18 09:16 Total Protein 6.0 g/dL (6.3-8.2) L 09/12/18 09:02 Albumin 3.2 g/dL (3.9-5) L 09/12/18 09:02 Albumin/Globulin Ratio 1.1 % 09/12/18 09:02 Plasma/Serum Alcohol < 0.01 % (0-0.07) 09/11/18 10:24 Active Medications - Current Medications Current Medications: Generic Name Dose Route Start Last Admin Trade Name Freq PRN Reason Stop Dose Admin Acetaminophen 650 mg 09/12/18 07:42 Tylenol PO Q4H PRN Pain MILD(1-3)/Fever >100.5/LUI Amlodipine Besylate 5 mg 09/12/18 10:00 09/13/18 11:57 Norvasc PO 5 mg DAILY [facility] Administration Carvedilol 6.25 mg 09/12/18 10:00 09/13/18 11:58 Coreg PO 6.25 mg BID [facility] Administration Docusate Sodium 100 mg 09/12/18 10:00 09/13/18 11:58 Colace PO 100 mg BID [facility] Administration Enoxaparin Sodium 80 mg 09/12/18 10:00 09/13/18 11:58 Lovenox SUB-Q 80 mg Q12HR [facility] Administration Famotidine 20 mg 09/12/18 10:00 09/13/18 11:57 Pepcid PO 20 mg BID [facility] Administration Ferrous Sulfate 325 mg 09/12/18 10:00 09/13/18 11:57 Feosol PO 325 mg DAILY [facility] Administration Furosemide 40 mg 09/12/18 09:00 09/12/18 21:28 Lasix IV 40 mg Q12H [facility] Administration Gabapentin 300 mg 09/12/18 08:00 09/13/18 00:56 Neurontin PO 300 mg Q8H [facility] Administration Glipizide 5 mg 09/12/18 09:00 09/13/18 08:10 Glucotrol PO 5 mg BIDDIAB [facility] Administration Hydromorphone HCl 0.5 mg 09/12/18 01:28 Dilaudid IV Q3H PRN Pain , Severe (7-10) Insulin Glargine 18 units 09/12/18 22:00 09/12/18 22:00 Lantus SUB-Q Not Given QHS [facility] Insulin Human Lispro 0 unit 09/12/18 11:30 09/12/18 22:00 Humalog SUB-Q Not Given ACHS [facility] Protocol Mirtazapine 15 mg 09/12/18 22:00 09/12/18 21:27 Remeron PO 15 mg QHS [facility] Administration Ondansetron HCl 4 mg 09/12/18 07:42 Zofran IV Q8H PRN Nausea And Vomiting Oxycodone/Acetaminophen 1 tab 09/12/18 07:42 Percocet 5/325 PO Q6H PRN Pain, Moderate (4-6) Potassium Chloride 10 meq 09/12/18 10:00 09/12/18 11:01 K-Dur PO 10 meq QDAY [facility] Administration Quetiapine Fumarate 50 mg 09/12/18 10:00 09/12/18 11:01 Seroquel PO 50 mg DAILY [facility] Administration Sodium Chloride 10 ml 09/12/18 10:00 09/12/18 21:30 Sodium Chloride Flush Syringe 10 Ml IV 10 ml BID [facility] Administration Sodium Chloride 10 ml 09/12/18 07:42 Sodium Chloride Flush Syringe 10 Ml IV PRN PRN LINE FLUSH Spironolactone 25 mg 09/12/18 10:00 09/12/18 11:03 Aldactone PO 25 mg DAILY [facility] Administration
--- NOTE | 2018-09-13 13:22 | Progress Note ---
Assessment and Plan - Patient Problems (1) Acute on chronic systolic heart failure Current Visit: Yes Status: Acute Plan to address problem: Medical therapy including intravenous diuretics, spironolactone, afterload agents and beta blockers. Salt restricted diet, daily weights and free water restriction to 1.5-2 L daily. Obtain outpatient records, to determine circumstances of cessation of warfarin. If no contraindications, patient needs to be resumed on warfarin for history of apical left ventricular thrombus. Subjective Date of service: 09/13/18 Interval history: Patient feels better, shortness of breath is resolving. Objective Vital Signs Temp Pulse Resp BP BP Pulse Ox 09/13/18 05:25 97.6 F 65 20 124/87 96 09/13/18 01:00 66 09/12/18 22:00 18 09/12/18 21:28 64 115/77 09/12/18 19:52 97.9 F 64 20 115/77 97 09/12/18 16:48 97.4 F L 72 18 128/70 98 09/12/18 14:44 97.2 F L 78 16 124/78 99 - Physical Examination General: No Apparent Distress HEENT: Positive: PERRL Neck: Positive: neck supple Cardiac: Positive: Reg Rate and Rhythm Lungs: Positive: Decreased Breath Sounds Neuro: Positive: Grossly Intact Abdomen: Positive: Soft Skin: Positive: Clear Extremities: Present: +1 Edema - Labs and Meds Coagulation 09/13/18 Range/Units 07:02 PT 14.5 (12.2-14.9) Sec. INR 1.06 (0.87-1.13) CBC 09/13/18 Range/Units 06:47 WBC 4.9 (4.5-11.0) K/mm3 RBC 4.14 (3.65-5.03) M/mm3 Hgb 11.1 L (11.8-15.2) gm/dl Hct 34.6 L (35.5-45.6) % Plt Count 337 (140-440) K/mm3 Lymph # 1.5 (1.2-5.4) K/mm3 [place] # 0.7 (0.0-0.8) K/mm3 Eos # 0.3 (0.0-0.4) K/mm3 Baso # 0.0 (0.0-0.1) K/mm3 Comprehensive Metabolic Panel 09/13/18 Range/Units 07:02 Sodium 137 (137-145) mmol/L Potassium 4.6 (3.6-5.0) mmol/L Chloride 99.8 (98-107) mmol/L Carbon Dioxide 26 (22-30) mmol/L BUN 12 (9-20) mg/dL Creatinine 0.9 (0.8-1.5) mg/dL Glucose 154 H (75-100) mg/dL Calcium 8.7 (8.4-10.2) mg/dL - Imaging and Cardiology EKG: report reviewed (NSR 62/min)
[2018-09-13] MEDS: LANTUS SUB-Q SCH (22:29)
[2018-09-13] MEDS: REMERON PO SCH (22:30)
[2018-09-13] MEDS: SODIUM CHLORIDE FLUSH SYRINGE 10 ML IV SCH (22:31)
[2018-09-14] MEDS: NEURONTIN PO SCH ×3 (00:11→16:25)
[2018-09-14 06:13] LABS: INR 1.11 (0.87-1.13)
[2018-09-14] MEDS: K-DUR PO SCH (09:50)
[2018-09-14] MEDS: FEOSOL PO SCH (09:50)
[2018-09-14] MEDS: COLACE PO SCH (09:50)
[2018-09-14] MEDS: LOVENOX SUB-Q SCH (09:51)
[2018-09-14] MEDS: PEPCID PO SCH (09:51)
[2018-09-14] MEDS: GLUCOTROL PO SCH ×2 (09:51→16:21)
[2018-09-14] MEDS: ALDACTONE PO SCH (09:51)
[2018-09-14 09:53] VITALS: BP 118/75
[2018-09-14] MEDS: COREG PO SCH (09:54)
[2018-09-14] MEDS: LASIX IV SCH (09:58)
[2018-09-14] MEDS: NORVASC PO SCH (09:58)
[2018-09-14] MEDS: HumaLOG SUB-Q SCH ×3 (09:59→16:25)
[2018-09-14] MEDS: SODIUM CHLORIDE FLUSH SYRINGE 10 ML IV SCH (09:59)
--- NOTE | 2018-09-14 11:51 | Progress Note ---
Assessment and Plan - Patient Problems (1) Acute on chronic systolic heart failure Current Visit: Yes Status: Acute Plan to address problem: Patient with a history of persistent severe dilated cardiomyopathy, presented with heart failure exacerbation, currently looks and feels better following optimal intravenous diuretic therapy. Patient is stable for cardiac discharge on oral medications as previously outlined. Subjective Date of service: 09/14/18 Interval history: Patient is comfortable, no further cardiac complaints, shortness of breath has resolved. Echocardiogram shows a persistent cardiomyopathy with ejection fraction less than 15-20%. Notably, there is no evident residual left ventricle apical thrombus. Objective Vital Signs Temp Pulse Resp BP Pulse Ox 09/14/18 09:58 64 118/75 09/14/18 09:54 64 118/75 09/14/18 08:29 97.9 F 64 18 118/75 99 09/14/18 03:54 98.0 F 65 18 131/82 98 09/14/18 01:00 64 09/13/18 23:27 98.0 F 71 18 116/68 100 09/13/18 22:31 70 128/86 09/13/18 22:00 18 09/13/18 19:27 98.0 F 70 18 128/86 98 - Physical Examination General: No Apparent Distress HEENT: Positive: PERRL Neck: Positive: neck supple Cardiac: Positive: Reg Rate and Rhythm Lungs: Positive: Decreased Breath Sounds Neuro: Positive: Grossly Intact Abdomen: Positive: Soft Skin: Positive: Clear Extremities: Absent: edema - Labs and Meds Coagulation 09/14/18 Range/Units 04:59 PT 15.0 H (12.2-14.9) Sec. INR 1.11 (0.87-1.13) - Imaging and Cardiology EKG: report reviewed (NSR 62/min)
--- NOTE | 2018-09-14 14:02 | Discharge Summary ---
Providers - Providers Date of Admission: 09/11/18 11:52 Date of discharge: 09/14/18 Attending physician: NOE WORTHY 09/12/18 08:08 Consult to Physician [CONS] Routine Comment: Consulting Provider: MILANA ROYAL Physician Instructions: Reason For Exam: syncope, CHF exacerbation [facility] Condition: Fair Hospital course: Patient is 53-year-old with history of diabetes,CAD, previous stroke, CHF. He presents because of an episode of passing out. He states that he was at the dinner table when he suddenly passed out. He denies any chest pain or shortness of breath. Patient was evaluated in the emergency department . CT head was negative for acute stroke. CXR showed pulm venous congestoion. He was admitted for further management. Cardiology was consulted and he was seen. Patient had a history of left ventricular thrombus and had been on Coumadin but stated this was discontinued by physician. Echocardiogram was repeated and did not show any thrombus. During stay there was no more episode of syncope so was discharged on 09/14/18 follows an outpatient. Total time spent on discharge,31 mins Disposition: DC-01 TO HOME OR SELFCARE - Discharge Diagnoses (1) Diabetes mellitus type 2 in nonobese Status: Acute (2) Acute on chronic systolic heart failure Status: Acute (3) Syncope Status: Acute (4) Hypertension Status: Chronic Qualifiers: Hypertension type: essential hypertension Qualified Code(s): I10 - Essential (primary) hypertension (5) CAD (coronary artery disease) Status: Acute (6) History of stroke Status: Acute (7) Vasovagal syncope Status: Acute Core Measure Documentation - Palliative Care Palliative Care/ Comfort Measures: Not Applicable - Core Measures Any of the following diagnoses?: heart failure - Heart Failure Discharge Requirements JERALD/ARB for LVSD if EF <40%: Yes Beta ailin at discharge: Yes Exam - Constitutional Vitals: Temp Pulse Resp BP Pulse Ox 97.9 F 64 18 118/75 99 09/14/18 08:29 09/14/18 09:58 09/14/18 08:29 09/14/18 09:58 09/14/18 08:29 Plan Activity: advance as tolerated Diet: low fat, low cholesterol, low salt Additional Instructions: 1.Follow up with PCP in 1 week Follow up with: MILANA ROYAL MD [Staff Physician] - 7 Days LEIVASY RYAN PENNY MD [Primary Care Provider] - 7 Days Prescriptions: Aspirin EC [Aspirin Enteric Coated TAB] 325 mg PO QDAY #30 tablet.
[2018-09-14] MEDS ORDERED: COUMADIN PO SCH (17:00)
== END 2018-09-14 21:56 | disposition home or self-care (01) | DRG 292 ==
LOC: ED 08:52 → 4A 11:52
PROVIDERS: ADMIT Internal Medicine; ATTEND Internal Medicine
DX: I50.43 Acute on chronic combined systolic (congestive) and diastolic (congestive) heart failure (principal); I69.354 Hemiplegia and hemiparesis following cerebral infarction affecting left non-dominant side; I42.0 Dilated cardiomyopathy; I11.0 Hypertensive heart disease with heart failure; R55 Syncope and collapse; D50.9 Iron deficiency anemia, unspecified; I25.10 Atherosclerotic heart disease of native coronary artery without angina pectoris; E11.9 Type 2 diabetes mellitus without complications; I25.2 Old myocardial infarction; Z95.5 Presence of coronary angioplasty implant and graft; Z79.82 Long term (current) use of aspirin; Z79.4 Long term (current) use of insulin; Z79.01 Long term (current) use of anticoagulants
CPT/HCPCS: 36415; 70450; 71045; 80048; 80053; 80320; 82962; 83036; 83880; 84484; 85007; 85025; 85610; 85730; 93005; 93010; 93306; 93880; G0378; G0480; J1650; J1815; J1940; J2785

== ENCOUNTER 2018-09-30 12:32 | Inpatient (IN) | payer MEDICARE ==
[2018-09-30] MEDS ORDERED: NACL 0.9% 1000 ML 1,000 ML IV ONE (13:04)
[2018-09-30 13:35] LABS: Hematocrit 36.9 % (35.5-45.6); Hemoglobin 12.1 gm/dl (11.8-15.2); Mean Corpuscular HGB Conc 33 % (32-34); Mean Corpuscular Volume 84 fl (84-94); Platelet Count 255 K/mm3 (140-440); Red Blood Count 4.42 M/mm3 (3.65-5.03); Red Cell Distribution Width 18.6 % (13.2-15.2)
--- NOTE | 2018-09-30 13:35 | Emergency Department Report ---
ED Syncope HPI - General Chief Complaint: Medical Clearance Stated Complaint: TWITCHING Time Seen by Provider: 09/30/18 12:51 - History of Present Illness Initial Comments: 53-year-old male presents to ED if presents syncopal episode. Patient states he was getting a haircut, the cervantes reported the patient began twitching and b ecame somewhat unresponsive. Patient has no recollection of these events. Patient denies having any headache, shortness of breath, lightheadedness, chest pain, vomiting, urinary incontinence. Patient states he is currently at his baseline however feels generally weak, no other complaints. Timing/Prior Episodes: no prior history Precipitating Factors: Negative: diaphoresis, injury, lightheadedness, nausea, pain, recent head trauma, rapid heart beat Context: sitting Loss of Consciousness: brief (seconds) Current Symptoms: back to normal. denies: blurred vision, chest pain, diaphoresis, dizziness, headache, lightheadedness, loss of bladder control, loss of bowel control - Related Data Allergies/Adverse Reactions: Allergies No Known Allergies Allergy (Verified 03/30/18 08:37) Home Medications: Ambulatory Orders Carvedilol [Coreg] 6.25 mg PO BID 07/28/18 Gabapentin [Neurontin] 300 mg PO TID 07/28/18 Insulin Glargine,Hum.rec.anlog [Lantus] 18 units SQ QHS 07/28/18 Lisinopril [Zestril TAB] 20 mg PO DAILY 07/28/18 Lispro Insulin [Humalog] 25 unit SUB-Q BID 07/28/18 Potassium Chloride 10 meq PO DAILY 07/28/18 Quetiapine Fumarate [SEROquel] 50 mg PO HS 07/28/18 Spironolactone 25 mg PO DAILY 07/28/18 amLODIPine [Norvasc] 5 mg PO DAILY 07/28/18 glipiZIDE [Glucotrol] 5 mg PO BID 07/28/18 Aspirin [Adult Aspirin] 81 mg PO QDAY 09/30/18 AtorvaSTATin [Lipitor] 40 mg PO QHS 09/30/18 Clopidogrel Bisulfate [Plavix] 75 mg PO QDAY 09/30/18 Furosemide [Lasix] 80 mg PO BID 09/30/18 ED Review of Systems ROS: Stated complaint: TWITCHING Other details as noted in HPI Comment: All other systems reviewed and negative Constitutional: denies: chills, fever Respiratory: denies: cough, shortness of breath Cardiovascular: denies: chest pain, palpitations Gastrointestinal: denies: abdominal pain, nausea, vomiting, diarrhea Neurological: denies: headache, weakness (denies focal weakness), numbness ED Past Medical Hx - Past Medical History Hx Hypertension: Yes Hx CVA: Yes (X3) Hx Heart Attack/AMI: Yes (9 stents) Hx Congestive Heart Failure: Yes Hx Diabetes: Yes Hx Liver Disease: Yes Additional medical history: CHF - Surgical History Additional Surgical History: Left arm - Social History Smoking Status: Never Smoker - Medications Home Medications: Home Medications Medication Instructions Recorded Confirmed Last Taken Type Carvedilol [Coreg] 6.25 mg PO BID 07/28/18 09/30/18 09/29/18 History Gabapentin [Neurontin] 300 mg PO TID 07/28/18 09/30/18 09/29/18 History Insulin Glargine,Hum.rec.anlog 18 units SQ QHS 07/28/18 09/30/18 09/29/18 H istory [Lantus] Lisinopril [Zestril TAB] 20 mg PO DAILY 07/28/18 09/30/18 Unknown History Lispro Insulin [Humalog] 25 unit SUB-Q BID 07/28/18 09/30/18 Unknown History Potassium Chloride 10 meq PO DAILY 07/28/18 09/30/18 09/29/18 History Quetiapine Fumarate [SEROquel] 50 mg PO HS 07/28/18 09/30/18 Unknown History Spironolactone 25 mg PO DAILY 07/28/18 09/30/18 Unknown History amLODIPine [Norvasc] 5 mg PO DAILY 07/28/18 09/30/18 09/29/18 History glipiZIDE [Glucotrol] 5 mg PO BID 07/28/18 09/30/18 09/29/18 History Aspirin [Adult Aspirin] 81 mg PO QDAY 09/30/18 09/30/18 Unknown History AtorvaSTATin [Lipitor] 40 mg PO QHS 09/30/18 09/30/18 Unknown History Clopidogrel Bisulfate [Plavix] 75 mg PO QDAY 09/30/18 09/30/18 Unknown History Furosemide [Lasix] 80 mg PO BID 0409/30/18 09/29/18 History ED Physical Exam - General Limitations: No Limitations General appearance: alert, in no apparent distress - Head Head exam: Present: atraumatic, normocephalic - Eye Eye exam: Present: normal appearance, PERRL, EOMI - ENT ENT exam: Present: mucous membranes moist - Neck Neck exam: Present: normal inspection - Respiratory Respiratory exam: Present: normal lung sounds bilaterally. Absent: respiratory distress - Cardiovascular Cardiovascular Exam: Present: regular rate, normal rhythm - GI/Abdominal GI/Abdominal exam: Present: soft. Absent: distended, tenderness - Extremities Exam Extremities exam: Present: normal inspection - Neurological Exam Neurological exam: Present: alert, oriented X3, CN II-XII intact, other (NIHSS=0). Absent: motor sensory deficit - Psychiatric Psychiatric exam: Present: normal affect, normal mood - Skin Skin exam: Present: warm, dry, intact, normal color ED Course Vital Signs 09/30/18 09/30/18 09/30/18 12:53 12:56 13:00 Temperature 97.5 F L 97.5 F L Pulse Rate 61 60 Respiratory 12 12 11 L Rate Blood Pressure 93/61 93/61 Blood Pressure 93/61 [Left] O2 Sat by Pulse 99 99 99 Oximetry 09/30/18 09/30/18 09/30/18 14:16 14:45 15:00 Temperature Pulse Rate 58 L 64 58 L Respiratory 18 11 L 14 Rate Blood Pressure 104/61 104/61 95/52 Blood Pressure [Left] O2 Sat by Pulse Oximetry 09/30/18 09/30/18 09/30/18 15:15 15:31 15:45 Temperature Pulse Rate 59 L 61 60 Respiratory 11 L 10 L 12 Rate Blood Pressure 95/52 104/60 104/60 Blood Pressure [Left] O2 Sat by Pulse Oximetry 09/30/18 16:00 Temperature Pulse Rate 62 Respiratory 15 Rate Blood Pressure 114/67 Blood Pressure [Left] O2 Sat by Pulse Oximetry ED Medical Decision Making - Lab Data Result diagrams: 09/30/18 13:21 09/30/18 13:21 - EKG Data -: EKG Interpreted by Tx EKG shows normal: sinus rhythm, axis, QRS complexes, ST-T waves Rate: normal - EKG Data When compared to previous EKG there are: no significant change (compared to 09/11/18) Interpretation: other (prolonged QT; LAFB) - Radiology Data Radiology results: report reviewed, image reviewed - Medical Decision Making 53 yo M w/ syncopal episode vs seizure-like activity. Syncope most likely, given pt's hypotension upon presentation. Pt currently at baseline, no neuro deficits. Workup unremarkable. IV fluids given, pt's BP responded well. Hx of CHF w/ EF of 15%. Will admit to hospitalist, Dr Velazquez, for further evaluation. - Differential Diagnosis arrythmia, CVA, seizure, infection, dehydration Critical care attestation.: If time is entered above; I have spent that time in minutes in the direct care of this critically ill patient, excluding procedure time. ED Disposition Clinical Impression: Syncope, Hypotension Disposition: OP ADMIT IP TO THIS HOSP Is pt being admited?: Yes Condition: Stable Instructions: Syncope (ED) Referrals: YULY GUILLEN JR, MD [Primary Care Provider] - 3-5 Days Time of Disposition: 16:06
[2018-09-30 13:46] LABS: Partial Thromboplastin Time 28.4 Sec. (24.2-36.6)
--- NOTE | 2018-09-30 13:46 | XRay Report ---
AP CHEST: HISTORY: Syncope AP view of the chest demonstrates a normal mediastinal and cardiac contour with clear lungs and normal bony and soft tissue structures. IMPRESSION: Unremarkable AP chest.
[2018-09-30 14:01] LABS: Alanine Aminotransferase 20 units/L (7-56); Albumin 3.5 g/dL (3.9-5); BUN/Creatinine Ratio 24; Bilirubin,Direct 0.3 mg/dL (0-0.2); Blood Urea Nitrogen 29 mg/dL (9-20); Calcium 9.6 mg/dL (8.4-10.2); Hemolysis Index 8
[2018-09-30 14:13] LABS: Total Cells Counted 100
[2018-09-30 14:14] LABS: Anisocytosis 1+; Burr Cells Few; Ovalocytes Few; Platelet Estimate Consistent w Auto; Poikilocytosis 1+
--- NOTE | 2018-09-30 14:52 | Cat Scan Report ---
PROCEDURE: CT HEAD/BRAIN WO CON TECHNIQUE: Spiral CT imaging of the brain was obtained without the use of IV contrast. HISTORY: syncope/ seizure COMPARISONS: Prior CT scan of the brain 09/11/2018 FINDINGS: Brain: There is no evidence of intracranial hemorrhage. No parenchymal hemorrhage is seen. No mass lesions or mass effect is identified. No abnormal extra-axial fluid collections or masses are seen. Moderate size old areas of encephalomalacia are seen inferiorly and medially in the right cerebellar hemisphere. A small area of encephalomalacia is seen in the inferior lateral aspect of the right occi pital lobe. Old area of encephalomalacia also seen in the superior lateral aspect of the right fronta l lobe. Old lacunar infarcts visualized in the caudate nucleus on the right. Small area of encephalom alacia also visualized in the right frontal lobe adjacent to the anterior aspect of the anterior horn of the right lateral ventricle. There is some decreased density seen in the periventricular white matter without mass effect. This i s fairly symmetric and does not exhibit any mass effect consistent with gliosis probably on the basis of microvascular disease or white matter changes of aging. Ventricles: The ventricles, sulcal pattern and fissures are prominent consistent with atrophy. Bone Windows: No evidence of fracture. Paranasal sinuses: Visualized portions are clear. Mastoid air cells: Clear. IMPRESSION: Old areas of encephalomalacia visualized anterior to the anterior horn of the right lateral ventricle , right frontal lobe, right occipital lobe and right cerebellar hemisphere. Old lacunar infarct also seen in the right basal ganglia. No acute intracranial abnormalities are identified. This document is electronically signed by Erik Crump MD., September 30 2018 02:50:09 PM ET
[2018-09-30] MEDS ORDERED: ZOFRAN IV PRN ×2 (16:41→16:51)
[2018-09-30] MEDS ORDERED: TYLENOL PO PRN ×2 (16:41→16:51)
[2018-09-30] MEDS ORDERED: SODIUM CHLORIDE FLUSH SYRINGE 10 ML IV PRN ×2 (16:41→16:51)
[2018-09-30] MEDS ORDERED: PHENERGAN PR PRN (16:51)
[2018-09-30] MEDS ORDERED: DULCOLAX PR PRN (16:51)
[2018-09-30] MEDS ORDERED: MILK OF MAGNESIA PO PRN (16:51)
[2018-09-30] MEDS ORDERED: REGLAN PO PRN (16:51)
--- NOTE | 2018-09-30 16:51 | History and Physical Report ---
History of Present Illness Chief complaint: I dont know what happened History of present illness: 53 YO Male with HTN, VT, CAD S/P Stent Placement, CVA, DM, Systolic CHF(EF 10%) presents to ED for evaluation. Pt states that he was in his usual state of health and while sitting in the cervantes chair and getting a haircut he began feeling like his left face was twitching, and thats all that he remembers. EMS notified and upon arrival the patient was found to be confused and in distress, and transported to [facility] ED. Pt seen and evaluated in ED and found to have symptoms consistent with CVA. Pt was outside therapeutic window for TPA at time of my exam. Pt acknowledges loss of consciousness. Pt denies fever, chills, CP, Palpitations, productive cough, BRBPR, Unintentional weight loss, night sweats, prolonged travel/immobility, unilateral leg swelling, calf pain, or recent ill contacts. Neurology consulted in ED. Cardiology consulted in ED. Pt admitted to telemetry and initiated on CVA protocol. Prior admission on 09/11/18 reviewed. All listed medication reconciled at time of admission. Past History Past Medical History: acute VT, CAD, diabetes, heart failure, hypertension, stroke Past Surgical History: Other (Stent, Left Arm surgery) Social history: single. denies: smoking, alcohol abuse, prescription drug abuse Family history: diabetes, hypertension Medications and Allergies Allergies Allergy/AdvReac Type Severity Reaction Status Date / Time No Known Allergies Allergy Verified 03/30/18 08:37 Home Medications Medication Instructions Recorded Confirmed Last Taken Type Carvedilol [Coreg] 6.25 mg PO BID 07/28/18 09/30/18 09/29/18 History Gabapentin [Neurontin] 300 mg PO TID 07/28/18 09/30/18 09/29/18 History Insulin Glargine,Hum.rec.anlog 18 units SQ QHS 07/28/18 09/30/18 09/29/18 History [Lantus] Lisinopril [Zestril TAB] 20 mg PO DAILY 07/28/18 09/30/18 Unknown History Lispro Insulin [Humalog] 25 unit SUB-Q BID 07/28/18 09/30/18 Unknown History Potassium Chloride 10 meq PO DAILY 07/28/18 09/30/18 09/29/18 History Quetiapine Fumarate [SEROquel] 50 mg PO HS 07/28/18 09/30/18 Unknown History Spironolactone 25 mg PO DAILY 07/28/18 09/30/18 Unknown History amLODIPine [Norvasc] 5 mg PO DAILY 07/28/18 09/30/18 09/29/18 History glipiZIDE [Glucotrol] 5 mg PO BID 07/28/18 09/30/18 09/29/18 History Aspirin [Adult Aspirin] 81 mg PO QDAY 09/30/18 09/30/18 Unknown History AtorvaSTATin [Lipitor] 40 mg PO QHS 09/30/18 09/30/18 Unknown History Clopidogrel Bisulfate [Plavix] 75 mg PO QDAY 09/30/18 09/30/18 Unknown History Furosemide [Lasix] 80 mg PO BID 09/30/18 09/30/18 09/29/18 History Active Meds: Active Medications Acetaminophen (Tylenol) 650 mg PO Q4H PRN PRN Reason: Pain MILD(1-3)/Fever >100.5/LUI Amlodipine Besylate (Norvasc) 5 mg PO DAILY [facility] Aspirin (Ecotrin) 325 mg PO QDAY [facility] Carvedilol (Coreg) 6.25 mg PO BID [facility] Docusate Sodium (Colace) 100 mg PO BID [facility] Ferrous Sulfate (Feosol) 325 mg PO DAILY [facility] Gabapentin (Neurontin) 300 mg PO Q8HR [facility] Lisinopril (Zestril) 20 mg PO DAILY [facility] Mirtazapine (Remeron) 15 mg PO QHS [facility] Miscellaneous Medication (Potassium Chloride [Potassium Chloride]) 10 meq PO DAILY [facility] Miscellaneous Medication (Quetiapine Fumarate [Seroquel]) 50 mg PO QDAY [facility] Miscellaneous Medication (Terbinafine Hcl [Lamisil]) 250 mg PO DAILY [facility] Ondansetron HCl (Zofran) 4 mg IV Q8H PRN PRN Reason: Nausea And Vomiting Sodium Chloride (Sodium Chloride Flush Syringe 10 Ml) 10 ml IV BID [facility] Sodium Chloride (Sodium Chloride Flush Syringe 10 Ml) 10 ml IV PRN PRN PRN Reason: LINE FLUSH Spironolactone (Aldactone) 25 mg PO DAILY [facility] Review of Systems Constitutional: no weight loss, no weight gain, no fever, no chills Ears, nose, mouth and throat: no ear pain, no ear discharge, no tinnitis, no decreased hearing, no nose pain, no nasal congestion Cardiovascular: no chest pain, no orthopnea, no palpitations, no rapid/irregular heart beat Respiratory: no cough, no cough with sputum, no excessive sputum, no hemoptysis Gastrointestinal: no abdominal pain, no nausea, no vomiting, no diarrhea, no constipation Genitourinary Male: no hematuria, no flank pain, no discharge, no urinary frequency, no urinary hesitancy Rectal: no pain, no incontinence, no bleeding Musculoskeletal: no neck stiffness, no neck pain, no shooting arm pain, no arm numbness/tingling Integumentary: no rash, no pruritis, no redness, no sores, no wounds Neurological: tingling, syncope Psychiatric: no anxiety, no memory loss, no sleep disturbances, no insomnia Endocrine: no cold intolerance, no heat intolerance, no polyphagia, no excessive thirst, no polydipsia Hematologic/Lymphatic: no easy bruising, no easy bleeding, no lymphadenopathy, no lymphedema Allergic/Immunologic: no urticaria, no persistent infections, no anaphylaxis, no angioedema Exam - Constitutional Vitals: Temp Pulse Resp BP Pulse Ox 97.5 F L 62 15 114/67 99 09/30/18 13:00 09/30/18 16:00 09/30/18 16:00 09/30/18 16:00 09/30/18 13:00 General appearance: Present: mild distress - EENT Eyes: Present: PERRL ENT: hearing intact, clear oral mucosa - Neck Neck: Present: supple, normal ROM - Respiratory Respiratory effort: normal Respiratory: bilateral: CTA - Cardiovascular Heart Sounds: Present: S1 & S2. Absent: rub, click - Extremities Extremities: pulses symmetrical, No edema Peripheral Pulses: within normal limits - Abdominal General gastrointestinal: Present: soft, non-tender, non-distended, normal bowel sounds Male genitourinary: Present: normal - Integumentary Integumentary: Present: clear, warm, dry - Musculoskeletal Musculoskeletal: gait normal, strength equal bilaterally - Psychiatric Psychiatric: appropriate mood/affect, intact judgment & insight - Neurologic Neurologic: CNII-XII intact, moves all extremities Results - Labs CBC & Chem 7: 09/30/18 13:21 09/30/18 13:21 Labs: Abnormal lab results 09/30/18 09/30/18 Range/Units 13:21 13:21 RDW 18.6 H (13.2-15.2) % Monocytes % (Manual) 14.0 H (0.0-7.3) % Sodium 136 L (137-145) mmol/L Chloride 94.1 L (98-107) mmol/L BUN 29 H (9-20) mg/dL Glucose 242 H (75-100) mg/dL Direct Bilirubin 0.3 H (0-0.2) mg/dL Albumin 3.5 L (3.9-5) g/dL Assessment and Plan - Patient Problems (1) CVA (cerebral vascular accident) Current Visit: Yes Status: Suspected Qualifiers: Precerebral and cerebral artery: other precerebral artery Plan to address problem: Admit to telemetry, CT head, MRI/MRA brain, Echo, carotid doppler, neuro checks, antiplatelet therapy, statin therapy, PT/OT/Speech, Neurology consulted in ED. (2) Syncope Current Visit: Yes Status: Suspected Qualifiers: Syncope type: vasovagal syncope Qualified Code(s): R55 - Syncope and collapse Plan to address problem: CT Head, neuro checks, monitor uop q shift, (3) Acute on chronic systolic heart failure Current Visit: No Status: Acute Plan to address problem: Admit to telemetry, strict I/O, daily weight, monitor uop q shift, monitor BP q shift, Echo, diuresis, afterload reduction, chest x ray, cardiology consulted in ED, (4) Cardiomyopathy Current Visit: Yes Status: Acute Qualifiers: Cardiomyopathy type: unspecified Qualified Code(s): I42.9 - Cardiomyopathy, unspecified Plan to address problem: Cardiology consulted. Pt counseled. Pt states that he now would like to have ICD/Pacemaker placed. Pt was offered placement at last admission. Pt states that he understands the risks of worsening symptoms and now wants to have procedure. (5) DVT prophylaxis Current Visit: No Status: Acute Plan to address problem: SCD to BLE while in bed. - Assessment Assessment Interval: Baseline - Level of Consciousness 1a. Level of Consciousness: alert/keenly responsive - LOC Questions 1b. LOC Questions: answers both correctly - LOC Command 1c. LOC Commands: performs tasks correctly - Best Gaze 2. Best Gaze: normal - Visual 3. Visual: no visual loss - Facial Palsy 4. Facial Palsy: normal symmetrical movement - Motor Arm 5a. Motor Arm Left: no drift 5b. Motor Arm Right: no drift - Motor Leg 6a. Motor Leg Left: no drift 6b. Motor Leg Right: no drift - Limb Ataxia 7. Limb Ataxia: absent - Sensory 8. Sensory: normal - Best Language 9. Best Language: no aphasia - Dysarthria 10. Dysarthria: normal - Extinction and Inattention 11. Extinction/Inattention: no abnormality - Scoring Total Score: 0 Stroke Severity: No Stroke Symptoms
[2018-09-30] MEDS ORDERED: D50W (25GM) Syringe IV PRN (16:56)
[2018-09-30 17:45] LABS: Bilirubin,Urine NEG (Negative); Blood,Urine NEG (Negative); Color,Urine Yellow (Yellow); Protein,Urine <15 mg/dL mg/dL (Negative); Urobilinogen,Urine < 2.0 mg/dL (<2.0)
[2018-09-30] MEDS: LASIX IV SCH (18:48)
[2018-09-30] MEDS: HumaLOG SUB-Q SCH ×2 (18:50→23:46)
[2018-09-30] MEDS: COLACE PO SCH (21:42)
[2018-09-30] MEDS: REMERON PO SCH (21:42)
[2018-09-30] MEDS: NEURONTIN PO SCH (21:42)
[2018-09-30] MEDS: SODIUM CHLORIDE FLUSH SYRINGE 10 ML IV SCH (21:43)
[2018-09-30] MEDS: COREG PO SCH (21:43)
[2018-10-01] MEDS: LASIX IV SCH ×2 (05:56→18:20)
[2018-10-01] MEDS: HumaLOG SUB-Q SCH ×6 (05:57→22:02)
[2018-10-01] MEDS: NEURONTIN PO SCH ×3 (05:57→22:03)
[2018-10-01 06:04] LABS: INR 0.99 (0.87-1.13)
[2018-10-01 06:58] LABS: BUN/Creatinine Ratio 28; Blood Urea Nitrogen 31 mg/dL (9-20); Calcium 8.8 mg/dL (8.4-10.2); Hemolysis Index 24
[2018-10-01] MEDS ORDERED: D50W (25GM) Syringe IV PRN ×2 (09:22→09:25)
[2018-10-01] MEDS: COREG PO SCH ×2 (09:30→22:07)
[2018-10-01] MEDS: ALDACTONE PO SCH (09:30)
[2018-10-01] MEDS: FEOSOL PO SCH (09:30)
[2018-10-01] MEDS: HALFPRIN EC PO SCH (09:30)
[2018-10-01] MEDS: COLACE PO SCH ×2 (09:30→22:03)
[2018-10-01] MEDS: K-DUR PO SCH (09:30)
[2018-10-01] MEDS: SODIUM CHLORIDE FLUSH SYRINGE 10 ML IV SCH ×2 (09:31→22:04)
[2018-10-01] MEDS: PLAVIX PO SCH (09:31)
[2018-10-01] MEDS ORDERED: ZESTRIL PO SCH (10:00)
[2018-10-01] MEDS ORDERED: LASIX IV SCH (10:00)
[2018-10-01] MEDS ORDERED: NON-FORMULARY (Potassium Chloride [Potassium Chloride] 10 MEQ) PO SCH (10:00)
[2018-10-01] MEDS ORDERED: TERBINAFINE HCL 250 MG PO SCH (10:00)
[2018-10-01] MEDS ORDERED: NORVASC PO SCH (10:00)
[2018-10-01] MEDS ORDERED: NON-FORMULARY (Quetiapine Fumarate [Seroquel] 50 MG) PO SCH (10:00)
[2018-10-01] MEDS ORDERED: ASPIRIN PO SCH (10:00)
[2018-10-01] MEDS ORDERED: ECOTRIN PO SCH (10:00)
--- NOTE | 2018-10-01 10:24 | Progress Note ---
<RHONDA SINGER - Last Filed: 10/01/18 11:11> Assessment and Plan Assessment and plan: Mr. Zepeda is a 53 y.o Male with history of HTN, AR, CAD S/P Stent Placement, CVA, DM, Systolic CHF(EF 10%) presented to ED on 09/30 with complaints of loss of consciousness. Pt was sitting in the cervantes chair, getting a hair cut, and recalls feeling like the left side of his face was "twitching". He lost consciousness for a brief period. He denies falling or hitting his head. Pt was previously admitted at [facility] on 09/11/18 for syncope related to acute exacerbation of systolic heart failure. At which time he was treated for a laminated left ventricular apical thrombus. Pt was previously anticoagulated on Warfarin. It was unclear why warfarin therapy was stopped. Pt was to follow up with cardiology as outpatient. Suspected CVA in patient with history of CVA MRI/MRA, CT head, and Doppler pending Neurology consult pending Acute on chronic systolic heart failure Ejection fraction 10% on previous Echo Echo, and stress test pending\\ Continue telemetry monitoring Continue HF meds to optimize cardiac function Cardiology consult pending Cardio myopathy persistent severe dilated cardiomyopathy Hx of left ventricle apical thrombus, which has been resolved Start Warfarin Hx of Syncope Likely secondary to systolic HF/ hypotension Continue Neuro checks Neurology consult pending DM Continue POC BG monitoring SSI and scheduled coverage Hyperlipidemia On Statin History Interval history: Pt is seen this morning on the Telemetry Unit. He will be going for MRI/MRA, stress testing, and echo today. There were no acute overnight events. Hospitalist Physical - Constitutional Vitals: Temp Pulse Resp BP Pulse Ox 98.5 F 70 12 123/77 95 10/01/18 03:57 10/01/18 03:57 10/01/18 03:57 10/01/18 03:57 10/01/18 05:00 General appearance: Present: mild distress, disheveled - EENT Eyes: Present: PERRL, EOM intact ENT: hearing intact, clear oral mucosa, poor dentition - Neck Neck: Present: supple, normal ROM - Respiratory Respiratory: bilateral: CTA Details: SOB with activity - Cardiovascular Rhythm: regular Heart Sounds: Present: S1 & S2 - Extremities Extremities: no ischemia, pulses intact, Full ROM - Abdominal General gastrointestinal: soft, non-tender - Integumentary Integumentary: Present: warm, dry, normal turgor - Psychiatric Psychiatric: appropriate mood/affect - Neurologic Neurologic: moves all extremities Results - Labs CBC & Chem 7: 09/30/18 13:21 10/01/18 04:29 Labs: Laboratory Last Values WBC 5.0 K/mm3 (4.5-11.0) 09/30/18 13:21 RBC 4.42 M/mm3 (3.65-5.03) 09/30/18 13:21 Hgb 12.1 gm/dl (11.8-15.2) 09/30/18 13:21 Hct 36.9 % (35.5-45.6) 09/30/18 13:21 MCV 84 fl (84-94) 09/30/18 13:21 MCH 28 pg (28-32) 09/30/18 13:21 MCHC 33 % (32-34) 09/30/18 13:21 RDW 18.6 % (13.2-15.2) H 09/30/18 13:21 Plt Count 255 K/mm3 (140-440) 09/30/18 13:21 Sublette % (Auto) [employer] 09/30/18 13:21 Add Manual Diff Complete 09/30/18 13:21 Total Counted 100 09/30/18 13:21 Seg Neuts % (Manual) 54.0 % (40.0-70.0) 09/30/18 13:21 Band Neutrophils % 0 % 09/30/18 13:21 Lymphocytes % (Manual) 27.0 % (13.4-35.0) 09/30/18 13:21 Reactive Lymphs % (Man) 2.0 % 09/30/18 13:21 Monocytes % (Manual) 14.0 % (0.0-7.3) H 09/30/18 13:21 Eosinophils % (Manual) 2.0 % (0.0-4.3) 09/30/18 13:21 Basophils % (Manual) 1.0 % (0.0-1.8) 09/30/18 13:21 Metamyelocytes % 0 % 09/30/18 13:21 Myelocytes % 0 % 09/30/18 13:21 Promyelocytes % 0 % 09/30/18 13:21 Blast Cells % 0 % 09/30/18 13:21 Nucleated RBC % Not Reportable 09/30/18 13:21 Seg Neutrophils # Man 2.7 K/mm3 (1.8-7.7) 09/30/18 13:21 Band Neutrophils # 0.0 K/mm3 09/30/18 13:21 Lymphocytes # (Manual) 1.4 K/mm3 (1.2-5.4) 09/30/18 13:21 Abs React Lymphs (Man) 0.1 K/mm3 09/30/18 13:21 Monocytes # (Manual) 0.7 K/mm3 (0.0-0.8) 09/30/18 13:21 Eosinophils # (Manual) 0.1 K/mm3 (0.0-0.4) 09/30/18 13:21 Basophils # (Manual) 0.1 K/mm3 (0.0-0.1) 09/30/18 13:21 Metamyelocytes # 0.0 K/mm3 09/30/18 13:21 Myelocytes # 0.0 K/mm3 09/30/18 13:21 Promyelocytes # 0.0 K/mm3 09/30/18 13:21 Blast Cells # 0.0 K/mm3 09/30/18 13:21 WBC Morphology Not Reportable 09/30/18 13:21 Hypersegmented Neuts Not Reportable 09/30/18 13:21 Hyposegmented Neuts Not Reportable 09/30/18 13:21 Hypogranular Neuts Not Reportable 09/30/18 13:21 Smudge Cells Not Reportable 09/30/18 13:21 Toxic Granulation Not Reportable 09/30/18 13:21 Toxic Vacuolation Not Reportable 09/30/18 13:21 Dohle Bodies Not Reportable 09/30/18 13:21 Pelger-Huet Anomaly Not Reportable 09/30/18 13:21 Angi Rods Not Reportable 09/30/18 13:21 Platelet Estimate Consistent w auto 09/30/18 13:21 Clumped Platelets Not Reportable 09/30/18 13:21 Plt Clumps, EDTA Not Reportable 09/30/18 13:21 Large Platelets Not Reportable 09/30/18 13:21 Giant Platelets Not Reportable 09/30/18 13:21 Platelet Satelliting Not Reportable 09/30/18 13:21 Plt Morphology Comment Not Reportable 09/30/18 13:21 RBC Morphology Not Reportable 09/30/18 13:21 Dimorphic RBCs Not Reportable 09/30/18 13:21 Polychromasia Not Reportable 09/30/18 13:21 Hypochromasia Not Reportable 09/30/18 13:21 Poikilocytosis 1+ 09/30/18 13:21 Anisocytosis 1+ 09/30/18 13:21 Microcytosis Not Reportable 09/30/18 13:21 Macrocytosis Not Reportable 09/30/18 13:21 Spherocytes Not Reportable 09/30/18 13:21 Pappenheimer Bodies Not Reportable 09/30/18 13:21 Sickle Cells Not Reportable 09/30/18 13:21 Target Cells Not Reportable 09/30/18 13:21 Tear Drop Cells Not Reportable 09/30/18 13:21 Ovalocytes Few 09/30/18 13:21 Helmet Cells Not Reportable 09/30/18 13:21 [place] Bodies Not Reportable 09/30/18 13:21 Gipsy Rings Not Reportable 09/30/18 13:21 May Cells Few 09/30/18 13:21 Bite Cells Not Reportable 09/30/18 13:21 Crenated Cell Not Reportable 09/30/18 13:21 Elliptocytes Not Reportable 09/30/18 13:21 Acanthocytes (Spur) Few 09/30/18 13:21 Rouleaux Not Reportable 09/30/18 13:21 Hemoglobin C Crystals Not Reportable 09/30/18 13:21 Schistocytes Not Reportable 09/30/18 13:21 Malaria parasites Not Reportable 09/30/18 13:21 Davi Bodies Not Reportable 09/30/18 13:21 Hem Pathologist Commnt No 09/30/18 13:21 PT 13.7 Sec. (12.2-14.9) 10/01/18 04:29 INR 0.99 (0.87-1.13) 10/01/18 04:29 APTT 28.4 Sec. (24.2-36.6) 09/30/18 13:21 Sodium 137 mmol/L (137-145) 10/01/18 04:29 Potassium 4.6 mmol/L (3.6-5.0) 10/01/18 04:29 Chloride 96.6 mmol/L (98-107) L 10/01/18 04:29 Carbon Dioxide 25 mmol/L (22-30) 10/01/18 04:29 Anion Gap 20 mmol/L 10/01/18 04:29 BUN 31 mg/dL (9-20) H 10/01/18 04:29 Creatinine 1.1 mg/dL (0.8-1.5) 10/01/18 04:29 Estimated GFR > 60 ml/min 10/01/18 04:29 BUN/Creatinine Ratio 28 % 10/01/18 04:29 Glucose 205 mg/dL (75-100) H 10/01/18 04:29 POC Glucose 178 (70-105) H 10/01/18 05:48 Hemoglobin A1c 9.1 % (4-6) H 10/01/18 08:33 Calcium 8.8 mg/dL (8.4-10.2) 10/01/18 04:29 Total Bilirubin 1.10 mg/dL (0.1-1.2) 09/30/18 13:21 Direct Bilirubin 0.3 mg/dL (0-0.2) H 09/30/18 13:21 Indirect Bilirubin 0.8 mg/dL 09/30/18 13:21 AST 22 units/L (5-40) 09/30/18 13:21 ALT 20 units/L (7-56) 09/30/18 13:21 Alkaline Phosphatase 75 units/L (35-129) 09/30/18 13:21 Troponin T < 0.010 ng/mL (0.00-0.029) 09/30/18 13:21 Total Protein 7.0 g/dL (6.3-8.2) 09/30/18 13:21 Albumin 3.5 g/dL (3.9-5) L 09/30/18 13:21 Albumin/Globulin Ratio 1.0 % 09/30/18 13:21 Urine Color Yellow (Yellow) 09/30/18 17:16 Urine Turbidity Clear (Clear) 09/30/18 17:16 Urine pH 6.0 (5.0-7.0) 09/30/18 17:16 Ur Specific [place] 1.008 (1.003-1.030) 09/30/18 17:16 Urine Protein <15 mg/dl mg/dL (Negative) 09/30/18 17:16 Urine Glucose (UA) 150 mg/dL (Negative) 09/30/18 17:16 Urine Ketones Neg mg/dL (Negative) 09/30/18 17:16 Urine Blood Neg (Negative) 09/30/18 17:16 Urine Nitrite Neg (Negative) 09/30/18 17:16 Urine Bilirubin Neg (Negative) 09/30/18 17:16 Urine Urobilinogen < 2.0 mg/dL (<2.0) 09/30/18 17:16 Ur Leukocyte Esterase Neg (Negative) 09/30/18 17:16 Urine WBC (Auto) 1.0 /HPF (0.0-6.0) 09/30/18 17:16 Urine RBC (Auto) 1.0 /HPF (0.0-6.0) 09/30/18 17:16 Active Medications - Current Medications Current Medications: Generic Name Dose Route Start Last Admin Trade Name Freq PRN Reason Stop Dose Admin Acetaminophen 650 mg 09/30/18 16:51 Tylenol PO Q4H PRN Pain, Mild (1-3) Amlodipine Besylate 5 mg 10/01/18 10:00 10/01/18 09:30 Norvasc PO 5 mg DAILY KALE Administration Aspirin 81 mg 10/01/18 10:00 10/01/18 09:30 Halfprin Ec PO 81 mg QDAY KALE Administration Atorvastatin Calcium 40 mg 09/30/18 22:00 09/30/18 21:42 Lipitor PO 40 mg QHS KALE Administration Bisacodyl 10 mg 09/30/18 16:51 Dulcolax OK QDAY PRN Constipation Carvedilol 6.25 mg 09/30/18 22:00 10/01/18 09:30 Coreg PO 6.25 mg BID KALE Administration Clopidogrel Bisulfate 75 mg 10/01/18 10:00 10/01/18 09:31 Plavix PO 75 mg QDAY KALE Administration Dextrose 50 ml 10/01/18 09:22 D50w (25gm) Syringe IV PRN PRN Hypoglycemia Docusate Sodium 100 mg 09/30/18 22:00 10/01/18 09:30 Colace PO 100 mg BID KALE Administration Ferrous Sulfate 325 mg 10/01/18 10:00 10/01/18 09:30 Feosol PO 325 mg DAILY KALE Administration Furosemide 80 mg 09/30/18 18:00 10/01/18 05:56 Lasix IV 80 mg 0600,1800 KALE Administration Gabapentin 300 mg 09/30/18 22:00 10/01/18 05:57 Neurontin PO 300 mg Q8HR KALE Administration Insulin Glargine 10 units 10/01/18 22:00 Lantus SUB-Q QHS KALE Insulin Human Lispro 3 unit 10/01/18 11:30 Humalog SUB-Q AC KALE Insulin Human Lispro 0 unit 10/01/18 11:30 Humalog SUB-Q ACHS [facility] Protocol Lisinopril 20 mg 10/01/18 10:00 10/01/18 09:31 Zestril PO 20 mg DAILY KALE Administration Magnesium Hydroxide 30 ml 09/30/18 16:51 Milk Of Magnesia PO Q4H PRN Constipation Metoclopramide HCl 10 mg 09/30/18 16:51 Reglan PO Q6H PRN Nausea And Vomiting Mirtazapine 15 mg 09/30/18 22:00 09/30/18 21:42 Remeron PO 15 mg QHS KALE Administration Ondansetron HCl 4 mg 09/30/18 16:51 Zofran IV Q8H PRN Nausea And Vomiting Potassium Chloride 10 meq 10/01/18 10:00 10/01/18 09:30 K-Dur PO 10 meq QDAY KALE Administration Promethazine HCl 25 mg 09/30/18 16:51 Phenergan OK Q6H PRN Nausea And Vomiting Quetiapine Fumarate 50 mg 10/01/18 10:00 10/01/18 09:30 Seroquel PO 50 mg DAILY KALE Administration Sodium Chloride 10 ml 09/30/18 22:00 10/01/18 09:31 Sodium Chloride Flush Syringe 10 Ml IV 10 ml BID KALE Administration Sodium Chloride 10 ml 09/30/18 16:41 Sodium Chloride Flush Syringe 10 Ml IV PRN PRN LINE FLUSH Sodium Chloride 10 ml 09/30/18 16:51 Sodium Chloride Flush Syringe 10 Ml IV PRN PRN LINE FLUSH Spironolactone 25 mg 10/01/18 10:00 10/01/18 09:30 Aldactone PO 25 mg DAILY KALE Administration <ARSEN HUERTA M - Last Filed: 10/02/18 23:38> Assessment and Plan Assessment and plan: I saw and evaluated the patient. I agree with the findings and the plan of care as documented in the Nurse Practitioner's~note, Hospitalist Physical - Constitutional Vitals: Temp Pulse Resp BP Pulse Ox 98.2 F 76 20 132/78 100 10/02/18 07:38 10/02/18 10:00 10/02/18 07:38 10/02/18 07:38 10/02/18 07:38 Results - Labs CBC & Chem 7: 09/30/18 13:21 10/01/18 04:29 Labs: Laboratory Last Values WBC 5.0 K/mm3 (4.5-11.0) 09/30/18 13:21 RBC 4.42 M/mm3 (3.65-5.03) 09/30/18 13:21 Hgb 12.1 gm/dl (11.8-15.2) 09/30/18 13:21 Hct 36.9 % (35.5-45.6) 09/30/18 13:21 MCV 84 fl (84-94) 09/30/18 13:21 MCH 28 pg (28-32) 09/30/18 13:21 MCHC 33 % (32-34) 09/30/18 13:21 RDW 18.6 % (13.2-15.2) H 09/30/18 13:21 Plt Count 255 K/mm3 (140-440) 09/30/18 13:21 Sublette % (Auto) [employer] 09/30/18 13:21 Add Manual Diff Complete 09/30/18 13:21 Total Counted 100 09/30/18 13:21 Seg Neuts % (Manual) 54.0 % (40.0-70.0) 09/30/18 13:21 Band Neutrophils % 0 % 09/30/18 13:21 Lymphocytes % (Manual) 27.0 % (13.4-35.0) 09/30/18 13:21 Reactive Lymphs % (Man) 2.0 % 09/30/18 13:21 Monocytes % (Manual) 14.0 % (0.0-7.3) H 09/30/18 13:21 Eosinophils % (Manual) 2.0 % (0.0-4.3) 09/30/18 13:21 Basophils % (Manual) 1.0 % (0.0-1.8) 09/30/18 13:21 Metamyelocytes % 0 % 09/30/18 13:21 Myelocytes % 0 % 09/30/18 13:21 Promyelocytes % 0 % 09/30/18 13:21 Blast Cells % 0 % 09/30/18 13:21 Nucleated RBC % Not Reportable 09/30/18 13:21 Seg Neutrophils # Man 2.7 K/mm3 (1.8-7.7) 09/30/18 13:21 Band Neutrophils # 0.0 K/mm3 09/30/18 13:21 Lymphocytes # (Manual) 1.4 K/mm3 (1.2-5.4) 09/30/18 13:21 Abs React Lymphs (Man) 0.1 K/mm3 09/30/18 13:21 Monocytes # (Manual) 0.7 K/mm3 (0.0-0.8) 09/30/18 13:21 Eosinophils # (Manual) 0.1 K/mm3 (0.0-0.4) 09/30/18 13:21 Basophils # (Manual) 0.1 K/mm3 (0.0-0.1) 09/30/18 13:21 Metamyelocytes # 0.0 K/mm3 09/30/18 13:21 Myelocytes # 0.0 K/mm3 09/30/18 13:21 Promyelocytes # 0.0 K/mm3 09/30/18 13:21 Blast Cells # 0.0 K/mm3 09/30/18 13:21 WBC Morphology Not Reportable 09/30/18 13:21 Hypersegmented Neuts Not Reportable 09/30/18 13:21 Hyposegmented Neuts Not Reportable 09/30/18 13:21 Hypogranular Neuts Not Reportable 09/30/18 13:21 Smudge Cells Not Reportable 09/30/18 13:21 Toxic Granulation Not Reportable 09/30/18 13:21 Toxic Vacuolation Not Reportable 09/30/18 13:21 Dohle Bodies Not Reportable 09/30/18 13:21 Pelger-Huet Anomaly Not Reportable 09/30/18 13:21 Angi Rods Not Reportable 09/30/18 13:21 Platelet Estimate Consistent w auto 09/30/18 13:21 Clumped Platelets Not Reportable 09/30/18 13:21 Plt Clumps, EDTA Not Reportable 09/30/18 13:21 Large Platelets Not Reportable 09/30/18 13:21 Giant Platelets Not Reportable 09/30/18 13:21 Platelet Satelliting Not Reportable 09/30/18 13:21 Plt Morphology Comment Not Reportable 09/30/18 13:21 RBC Morphology Not Reportable 09/30/18 13:21 Dimorphic RBCs Not Reportable 09/30/18 13:21 Polychromasia Not Reportable 09/30/18 13:21 Hypochromasia Not Reportable 09/30/18 13:21 Poikilocytosis 1+ 09/30/18 13:21 Anisocytosis 1+ 09/30/18 13:21 Microcytosis Not Reportable 09/30/18 13:21 Macrocytosis Not Reportable 09/30/18 13:21 Spherocytes Not Reportable 09/30/18 13:21 Pappenheimer Bodies Not Reportable 09/30/18 13:21 Sickle Cells Not Reportable 09/30/18 13:21 Target Cells Not Reportable 09/30/18 13:21 Tear Drop Cells Not Reportable 09/30/18 13:21 Ovalocytes Few 09/30/18 13:21 Helmet Cells Not Reportable 09/30/18 13:21 [place] Bodies Not Reportable 09/30/18 13:21 Gipsy Rings Not Reportable 09/30/18 13:21 May Cells Few 09/30/18 13:21 Bite Cells Not Reportable 09/30/18 13:21 Crenated Cell Not Reportable 09/30/18 13:21 Elliptocytes Not Reportable 09/30/18 13:21 Acanthocytes (Spur) Few 09/30/18 13:21 Rouleaux Not Reportable 09/30/18 13:21 Hemoglobin C Crystals Not Reportable 09/30/18 13:21 Schistocytes Not Reportable 09/30/18 13:21 Malaria parasites Not Reportable 09/30/18 13:21 Davi Bodies Not Reportable 09/30/18 13:21 Hem Pathologist Commnt No 09/30/18 13:21 PT 13.0 Sec. (12.2-14.9) 10/02/18 07:28 INR 0.93 (0.87-1.13) 10/02/18 07:28 APTT 28.4 Sec. (24.2-36.6) 09/30/18 13:21 Sodium 137 mmol/L (137-145) 10/01/18 04:29 Potassium 4.6 mmol/L (3.6-5.0) 10/01/18 04:29 Chloride 96.6 mmol/L (98-107) L 10/01/18 04:29 Carbon Dioxide 25 mmol/L (22-30) 10/01/18 04:29 Anion Gap 20 mmol/L 10/01/18 04:29 BUN 31 mg/dL (9-20) H 10/01/18 04:29 Creatinine 1.1 mg/dL (0.8-1.5) 10/01/18 04:29 Estimated GFR > 60 ml/min 10/01/18 04:29 BUN/Creatinine Ratio 28 % 10/01/18 04:29 Glucose 205 mg/dL (75-100) H 10/01/18 04:29 POC Glucose 170 (70-105) H 10/02/18 12:01 Hemoglobin A1c 9.1 % (4-6) H 10/01/18 08:33 Calcium 8.8 mg/dL (8.4-10.2) 10/01/18 04:29 Total Bilirubin 1.10 mg/dL (0.1-1.2) 09/30/18 13:21 Direct Bilirubin 0.3 mg/dL (0-0.2) H 09/30/18 13:21 Indirect Bilirubin 0.8 mg/dL 09/30/18 13:21 AST 22 units/L (5-40) 09/30/18 13:21 ALT 20 units/L (7-56) 09/30/18 13:21 Alkaline Phosphatase 75 units/L (35-129) 09/30/18 13:21 Troponin T < 0.010 ng/mL (0.00-0.029) 09/30/18 13:21 Total Protein 7.0 g/dL (6.3-8.2) 09/30/18 13:21 Albumin 3.5 g/dL (3.9-5) L 09/30/18 13:21 Albumin/Globulin Ratio 1.0 % 09/30/18 13:21 Urine Color Yellow (Yellow) 09/30/18 17:16 Urine Turbidity Clear (Clear) 09/30/18 17:16 Urine pH 6.0 (5.0-7.0) 09/30/18 17:16 Ur Specific [place] 1.008 (1.003-1.030) 09/30/18 17:16 Urine Protein <15 mg/dl mg/dL (Negative) 09/30/18 17:16 Urine Glucose (UA) 150 mg/dL (Negative) 09/30/18 17:16 Urine Ketones Neg mg/dL (Negative) 09/30/18 17:16 Urine Blood Neg (Negative) 09/30/18 17:16 Urine Nitrite Neg (Negative) 09/30/18 17:16 Urine Bilirubin Neg (Negative) 09/30/18 17:16 Urine Urobilinogen < 2.0 mg/dL (<2.0) 09/30/18 17:16 Ur Leukocyte Esterase Neg (Negative) 09/30/18 17:16 Urine WBC (Auto) 1.0 /HPF (0.0-6.0) 09/30/18 17:16 Urine RBC (Auto) 1.0 /HPF (0.0-6.0) 09/30/18 17:16 Nutrition/Malnutrition Assess - Dietary Evaluation Nutrition/Malnutrition Findings: Nutrition Notes Start: 10/01/18 13:25 Freq: Status: Discharge Protocol: Document 10/02/18 10:03 (Rec: 10/02/18 10:08 [email or web address]) Co-Sign 10/02/18 10:03 LP Nutrition Notes Initial or Follow up Brief Note Subjective/Other Information Screened for Vitamin K/ Coumadin interaction. Patient states appetite is good and reports eating 100% of meals. #1 Nutrition Diagnosis Food and nutrition-related knowledge deficit Etiology no prior need of nutrition education As Evidenced by Signs and Symptoms lack of prior knowledge of need for nutrition recommendation for Vitamin K/ Coumadin education Nutrition Intervention Teaching Recipient Patient Learning Readiness Fair Teaching Methods Discussion,Handout Response to Teaching Verbalize understanding Education Handouts Provided Vitamin K and medications Barriers to Learning No Barriers RD phone number provided Yes Patient aware of follow up options Yes Revisit per MD consult or patient Sign Off request:
--- NOTE | 2018-10-01 12:06 | Event Note ---
Date: 10/01/[address] Kiran, his syncope is attributable to his low blood pressure and fairly severe cardiomyopathy for which apparently he now wants ICD and pacemaker which had been offered to him on previous admission. Facial twitching might have been a small seizure due to the hypotension which hopefully is being corrected. I told her I wouldn't even do an EEG unless he had further possible seizure activity without accompanying low blood pressure. No need currently for me to see him she agreed.
--- NOTE | 2018-10-01 12:07 | Consultation ---
History of Present Illness Consult date: 10/01/18 Consult reason: congestive heart failure History of present illness: Patient is a 53 year old with multiple medical problems. He has a cardiac hi story of coronary artery disease, dilated ischemic cardiomyopathy. An echocardiogram 3 weeks ago reports a severely dilated cardiomyopathy with a decrease left ventricular systolic function, ejection fraction 15-20%. There was no evidence of laminated apical thrombus as previously reported. In the past, patient offered a cardiac defibrillator by his primary oven technician but he declined. He was brought to the hospital with facial twitching and agitation. Neurology evaluation and workup is in process. Patient reports symptoms began while getting his hair cut. He denies chest pain, denies palpitations, and there is no significant lower extremity edema. Patient denies syncope. His ECG shows sinus rhythm, no acute ischemic changes. Past History Past Medical History: acute CO, CAD, diabetes, heart failure, hypertension, stroke Past Surgical History: Other (Stent, Left Arm surgery) Social history: single. denies: smoking, alcohol abuse, prescription drug abuse Family history: diabetes, hypertension Medications and Allergies Allergies Allergy/AdvReac Type Severity Reaction Status Date / Time No Known Allergies Allergy Verified 03/30/18 08:37 Home Medications Medication Instructions Recorded Confirmed Last Taken Type Carvedilol [Coreg] 6.25 mg PO BID 07/28/18 09/30/18 09/29/18 History Gabapentin [Neurontin] 300 mg PO TID 07/28/18 09/30/18 09/29/18 History Insulin Glargine,Hum.rec.anlog 18 units SQ QHS 07/28/18 09/30/18 09/29/18 History [Lantus] Lisinopril [Zestril TAB] 20 mg PO DAILY 07/28/18 09/30/18 Unknown History Lispro Insulin [Humalog] 25 unit SUB-Q BID 07/28/18 09/30/18 Unknown History Potassium Chloride 10 meq PO DAILY 07/28/18 09/30/18 09/29/18 History Quetiapine Fumarate [SEROquel] 50 mg PO HS 07/28/18 09/30/18 Unknown History Spironolactone 25 mg PO DAILY 07/28/18 09/30/18 Unknown History amLODIPine [Norvasc] 5 mg PO DAILY 07/28/18 09/30/18 09/29/18 History glipiZIDE [Glucotrol] 5 mg PO BID 07/28/18 09/30/18 09/29/18 History Aspirin [Adult Aspirin] 81 mg PO QDAY 09/30/18 09/30/18 Unknown History AtorvaSTATin [Lipitor] 40 mg PO QHS 09/30/18 09/30/18 Unknown History Clopidogrel Bisulfate [Plavix] 75 mg PO QDAY 09/30/18 09/30/18 Unknown History Furosemide [Lasix] 80 mg PO BID 09/30/18 09/30/18 09/29/18 History Active Meds: Active Medications Acetaminophen (Tylenol) 650 mg PO Q4H PRN PRN Reason: Pain, Mild (1-3) Amlodipine Besylate (Norvasc) 5 mg PO DAILY [facility] Last Admin: 10/01/18 09:30 Dose: 5 mg Documented by: Aspirin (Halfprin Ec) 81 mg PO QDAY [facility] Last Admin: 10/01/18 09:30 Dose: 81 mg Documented by: Atorvastatin Calcium (Lipitor) 40 mg PO QHS [facility] Last Admin: 09/30/18 21:42 Dose: 40 mg Documented by: Bisacodyl (Dulcolax) 10 mg MD QDAY PRN PRN Reason: Constipation Carvedilol (Coreg) 6.25 mg PO BID [facility] Last Admin: 10/01/18 09:30 Dose: 6.25 mg Documented by: Clopidogrel Bisulfate (Plavix) 75 mg PO QDAY [facility] Last Admin: 10/01/18 09:31 Dose: 75 mg Documented by: Dextrose (D50w (25gm) Syringe) 50 ml IV PRN PRN PRN Reason: Hypoglycemia Docusate Sodium (Colace) 100 mg PO BID [facility] Last Admin: 10/01/18 09:30 Dose: 100 mg Documented by: Ferrous Sulfate (Feosol) 325 mg PO DAILY [facility] Last Admin: 10/01/18 09:30 Dose: 325 mg Documented by: Furosemide (Lasix) 80 mg IV 0600,1800 [facility] Last Admin: 10/01/18 05:56 Dose: 80 mg Documented by: Gabapentin (Neurontin) 300 mg PO Q8HR [facility] Last Admin: 10/01/18 05:57 Dose: 300 mg Documented by: Insulin Glargine (Lantus) 10 units SUB-Q QHS [facility] Insulin Human Lispro (Humalog) 3 unit SUB-Q AC [facility] Insulin Human Lispro (Humalog) 0 unit SUB-Q ACHS [facility]; Protocol Lisinopril (Zestril) 20 mg PO DAILY [facility] Last Admin: 10/01/18 09:31 Dose: 20 mg Documented by: Magnesium Hydroxide (Milk Of Magnesia) 30 ml PO Q4H PRN PRN Reason: Constipation Metoclopramide HCl (Reglan) 10 mg PO Q6H PRN PRN Reason: Nausea And Vomiting Mirtazapine (Remeron) 15 mg PO QHS [facility] Last Admin: 09/30/18 21:42 Dose: 15 mg Documented by: Ondansetron HCl (Zofran) 4 mg IV Q8H PRN PRN Reason: Nausea And Vomiting Potassium Chloride (K-Dur) 10 meq PO QDAY [facility] Last Admin: 10/01/18 09:30 Dose: 10 meq Documented by: Promethazine HCl (Phenergan) 25 mg MD Q6H PRN PRN Reason: Nausea And Vomiting Quetiapine Fumarate (Seroquel) 50 mg PO DAILY [facility] Last Admin: 10/01/18 09:30 Dose: 50 mg Documented by: Sodium Chloride (Sodium Chloride Flush Syringe 10 Ml) 10 ml IV BID [facility] Last Admin: 10/01/18 09:31 Dose: 10 ml Documented by: Sodium Chloride (Sodium Chloride Flush Syringe 10 Ml) 10 ml IV PRN PRN PRN Reason: LINE FLUSH Sodium Chloride (Sodium Chloride Flush Syringe 10 Ml) 10 ml IV PRN PRN PRN Reason: LINE FLUSH Spironolactone (Aldactone) 25 mg PO DAILY [facility] Last Admin: 10/01/18 09:30 Dose: 25 mg Documented by: Warfarin Sodium (Coumadin) 7.5 mg PO DAILY@1700 [facility] Physical Examination Vital Signs Resp Pulse Ox 12 99 09/30/18 12:53 09/30/18 12:53 General appearance: no acute distress HEENT: Positive: PERRL Neck: Positive: trachea midline Cardiac: Positive: Reg Rate and Rhythm Lungs: Positive: Decreased Breath Sounds Neuro: Positive: Grossly Intact Extremities: Absent: edema Results 09/30/18 13:21 10/01/18 04:29 Cardiac Enzymes 09/30/18 Range/Units 13:21 AST 22 (5-40) units/L Coagulation 09/30/18 10/01/18 Range/Units 13:21 04:29 PT 13.8 13.7 (12.2-14.9) Sec. INR 1.00 0.99 (0.87-1.13) APTT 28.4 (24.2-36.6) Sec. CBC 09/30/18 Range/Units 13:21 WBC 5.0 (4.5-11.0) K/mm3 RBC 4.42 (3.65-5.03) M/mm3 Hgb 12.1 (11.8-15.2) gm/dl Hct 36.9 (35.5-45.6) % Plt Count 255 (140-440) K/mm3 Comprehensive Metabolic Panel 09/30/18 10/01/18 Range/Units 13:21 04:29 Sodium 136 L 137 (137-145) mmol/L Potassium 4.7 4.6 (3.6-5.0) mmol/L Chloride 94.1 L 96.6 L (98-107) mmol/L Carbon Dioxide 29 25 (22-30) mmol/L BUN 29 H 31 H (9-20) mg/dL Creatinine 1.2 1.1 (0.8-1.5) mg/dL Glucose 242 H 205 H (75-100) mg/dL Calcium 9.6 8.8 (8.4-10.2) mg/dL Direct Bilirubin 0.3 H (0-0.2) mg/dL Indirect Bilirubin 0.8 mg/dL AST 22 (5-40) units/L ALT 20 (7-56) units/L Alkaline Phosphatase 75 (35-129) units/L Total Protein 7.0 (6.3-8.2) g/dL Albumin 3.5 L (3.9-5) g/dL Assessment and Plan Facial twitching with agitation Hx of CAD Dilated Ischemic Cardiomyopathy, EF 15%. Prior CVA Hypertension Diabetes Recommendations: Medical management of coronary disease and dilated ischemic cardiomyopathy. Otherwise, conservative cardiac management.
--- NOTE | 2018-10-01 16:44 | Magnetic Resonance Report ---
PROCEDURE: MR BRAIN WO CON HISTORY: stroke FINDINGS: MRI of the brain was performed using sagittal T1, axial T2, axial FLAIR, axial diffusion, a xial T1, coronal FLAIR images. Comparison is made to the CT examination performed September 30. These images demonstrate that there is a complete corpus callosum. There is no Chiari malformation. Diffusion-weighted images demonstrate no acute transcortical or acute lacunar infarct. There is an old right inferior cerebellar infarct with encephalomalacia. There is right occipital inf arct with focal encephalomalacia. There is an old right posterior superior parietal infarct with ence phalomalacia. There is an old right basal ganglia infarct, 2.3 x 0.7 cm. There are old bilateral periventricular white matter lacunar infarcts. There are normal flow voids in the vertebral arteries, basilar artery and both internal carotid arter ies. The mastoid air cells and middle ears appear clear. There is no evidence of acute sinusitis. IMPRESSION: No acute transcortical or acute lacunar infarct This document is electronically signed by Kilo Lux MD., October 01 2018 04:42:29 PM ET
--- NOTE | 2018-10-01 16:49 | Magnetic Resonance Report ---
PROCEDURE: MR MRA/MRV HEAD WO CON HISTORY: stroke FINDINGS: MRA of the intracranial arterial vasculature was performed using [id number] angiography . Data was reformatted in multiple projections. These images demonstrate, in the posterior circulation, that both vertebral arteries are patent. the basilar artery is patent. Both posterior cerebral arteries are identified and appear patent. There is a short segment moderate stenosis of the midportion of the right posterior cerebral artery. The left posterior cerebral artery displays several mild short segment stenoses. In the anterior circulation, there is a moderate to high-grade stenosis of the right supraclinoid int ernal carotid artery. The left internal carotid artery is widely patent. There are several moderate short segment stenoses of the left M1 and M2 segments of the middle cerebr al artery. The right middle cerebral artery is widely patent. Both anterior cerebral arteries appear patent. IMPRESSION: The intracranial arterial vasculature appears patent Moderate to high-grade stenosis of the right supraclinoid internal carotid artery. Moderate stenosis of the midportion of the right posterior cerebral artery Several short segment moderate stenoses of the left M1 and M2 segments of the middle cerebral artery. This document is electronically signed by Kilo Lux MD., October 01 2018 04:46:57 PM ET
[2018-10-01] MEDS: COUMADIN PO SCH (18:20)
[2018-10-01] MEDS ORDERED: LANTUS SUB-Q SCH (22:00)
[2018-10-01] MEDS: REMERON PO SCH (22:03)
[2018-10-02] MEDS: LASIX IV SCH (05:09)
[2018-10-02] MEDS: NEURONTIN PO SCH ×2 (05:10→16:11)
[2018-10-02 07:40] VITALS: BP 132/78
[2018-10-02 07:59] LABS: INR 0.93 (0.87-1.13)
[2018-10-02] MEDS ORDERED: ZESTRIL PO SCH ×2 (08:12→10:30)
[2018-10-02] MEDS: HumaLOG SUB-Q SCH ×6 (08:30→16:39)
--- NOTE | 2018-10-02 09:22 | Progress Note ---
Assessment and Plan Suspicion of a CVA or transient neurological event Altered mental status Hx of CAD Dilated Ischemic Cardiomyopathy, EF 15%. Prior CVA Hypertension Diabetes Recommendations: Medical management of coronary disease and dilated ischemic cardiomyopathy. Otherwise, conservative cardiac management. Subjective Date of service: 10/02/18 Interval history: Patient has no chest pain or shortness of breath. Short burst on NSVT seen on telemetry. Patient remained asymptomatic. Objective Vital Signs Temp Pulse Pulse Resp BP Pulse Ox 10/02/18 07:38 98.2 F 76 20 132/78 100 10/02/18 04:06 97.0 F L 74 18 122/86 100 10/02/18 00:02 98.0 F 77 20 113/66 96 10/01/18 22:20 18 98 10/01/18 22:07 69 91/48 10/01/18 19:40 98.0 F 69 20 91/48 96 10/01/18 19:30 67 10/01/18 17:08 97.6 F 71 16 117/71 100 10/01/18 13:51 95 10/01/18 13:47 97.3 F L 69 18 94/59 100 10/01/18 10:00 80 98 - Physical Examination General: No Apparent Distress HEENT: Positive: PERRL Neck: Positive: trachea midline Cardiac: Positive: Reg Rate and Rhythm Lungs: Positive: Decreased Breath Sounds Neuro: Positive: Grossly Intact Extremities: Absent: edema - Labs and Meds Coagulation 10/02/18 Range/Units 07:28 PT 13.0 (12.2-14.9) Sec. INR 0.93 (0.87-1.13)
[2018-10-02] MEDS: PLAVIX PO SCH ×2 (09:31→10:10)
[2018-10-02] MEDS: HALFPRIN EC PO SCH ×2 (09:31→10:10)
[2018-10-02] MEDS: COLACE PO SCH ×2 (09:31→10:10)
[2018-10-02] MEDS: K-DUR PO SCH ×2 (09:31→10:10)
[2018-10-02] MEDS: ALDACTONE PO SCH ×2 (09:31→10:10)
[2018-10-02] MEDS: FEOSOL PO SCH ×2 (09:31→10:10)
[2018-10-02] MEDS: SODIUM CHLORIDE FLUSH SYRINGE 10 ML IV SCH (09:34)
--- NOTE | 2018-10-02 10:24 | Discharge Summary ---
<RHONDA SINGER - Last Filed: 10/02/18 14:28> Providers - Providers Date of Admission: 09/30/18 16:41 Date of discharge: 10/02/18 Attending physician: ARSEN HUERTA MD 09/30/18 16:52 Occupational Therapy Evaluate and Treat [CONS] Routine Comment: Reason For Exam: Neuro deficits Physical Therapy Evaluation and Treat [CONS] Routine Comment: Reason For Exam: Neuro deficits 09/30/18 16:55 Consult to Cardiology [CONS] Routine Consulting Provider: MILANA ROYAL Reason For Exam: CHF/AICD/Pacemaker Placement 09/30/18 17:19 Consult to Physician [CONS] Routine Comment: Consulting Provider: YEIMI FAROOQ Physician Instructions: Reason For Exam: cva 10/01/18 09:22 Consult to Dietitian/Nutrition [CONS] Routine Physician Instructions: Reason For Exam: Reason for Consult: Diet education Primary care physician: YULY GUILLEN Hospitalization Reason for admission: transient autonomic imbalance Condition: Stable Hospital course: Mr. Zepeda is a 53 y.o Male with history of HTN, NM, CAD S/P Stent Placement, CVA, DM, Systolic CHF(EF 10%) presented to ED on 09/30 with complaints of loss of consciousness. Pt was sitting in the cervantes chair, getting a hair cut, and recalls feeling like the left side of his face was "twitching". He lost consciousness for a brief period. He denies falling or hitting his head. Pt was previously admitted at [facility] on 09/11/18 for syncope related to acute exacerbation of systolic heart failure. At which time he was treated for a laminated left ventricular apical thrombus. Pt was previously anticoagulated on Warfarin. It was unclear why warfarin therapy was stopped. At the time he was offered an ICD but declined. Pt was to follow up with cardiology as outpatient. During this admission neurology was consulted and feels that his syncope was related to hypotension and severe dilated cardiomyopathy. The facial twitching might have been a small seizure due to the hypotension. At this time the neurologist does not feel it is necessary to do an EEG unless patient displays for possible seizure activity without accompanying hypotension. Patient's MRI/MRA was negative. Patient's hypotension has been corrected and his anti- hypertensive medication has been adjusted to optimize pressure. His anti-coagu lation on warfarin has been resumed during this stay. Patient is advised to follow up as outpatient with cardiology for ICD placement. Discharge plan was discussed with patient and he is in agreement. He verbalized understanding and plans to follow-up outpatient with cardiology as recommended. Transient Autonomic Imbalance Acute on chronic systolic heart failure Cardio myopathy persistent severe dilated cardiomyopathy Hx HTN Hx of Syncope DM Hyperlipidemia Disposition: DC-01 TO HOME OR SELFCARE Core Measure Documentation - Palliative Care Palliative Care/ Comfort Measures: Not Applicable - Core Measures Any of the following diagnoses?: none - VTE Discharge Requirements Deep Vein Thrombosis/Pulmonary Embolism Present on Admission: No Contraindication No Overlap Therapy order at DC: Not Indicated Exam - Physical Exam Narrative exam: eneral appearance: Present: no distress - EENT Eyes: Present: PERRL, EOM intact ENT: hearing intact, clear oral mucosa, poor dentition - Neck Neck: Present: supple, normal ROM - Respiratory Respiratory: bilateral: CTA Details: SOB with activity - Cardiovascular Rhythm: regular Heart Sounds: Present: S1 & S2 - Extremities Extremities: no ischemia, pulses intact, Full ROM - Abdominal General gastrointestinal: soft, non-tender - Integumentary Integumentary: Present: warm, dry, normal turgor - Psychiatric Psychiatric: appropriate mood/affect - Neurologic Neurologic: moves all extremities - Constitutional Vitals: Temp Pulse Resp BP Pulse Ox 98.2 F 76 20 132/78 100 10/02/18 07:38 10/02/18 07:38 10/02/18 07:38 10/02/18 07:38 10/02/18 07:38 Plan Activity: advance as tolerated Diet: low fat, low salt, diabetic Follow up with: YULY GUILLEN JR, MD [Primary Care Provider] - 3-5 Days MILANA ROYAL MD [Staff Physician] - 7 Days Forms: Warfarin Discharge Instruction Prescriptions: Aspirin EC [Aspirin Enteric Coated TAB] 81 mg PO QDAY #30 tablet Warfarin [Coumadin] 7.5 mg PO DAILY@1700 30 Days #30 tablet Ferrous Sulfate [Feosol 325 MG tab] 325 mg PO DAILY 30 Days #30 tablet Metoprolol Xl [Metoprolol SUCCINATE ER TAB] 25 mg PO QDAY 30 Days #30 tablet Lisinopril [Zestril TAB] 10 mg PO QDAY 30 Days #30 tablet <ARSEN HUERTA M - Last Filed: 10/03/18 09:13> Providers - Providers Date of Admission: 09/30/18 16:41 Attending physician: ARSEN HUERTA MD 09/30/18 16:52 Occupational Therapy Evaluate and Treat [CONS] Routine Comment: Reason For Exam: Neuro deficits Physical Therapy Evaluation and Treat [CONS] Routine Comment: Reason For Exam: Neuro deficits 09/30/18 16:55 Consult to Cardiology [CONS] Routine Consulting Provider: MILANA ROYAL Reason For Exam: CHF/AICD/Pacemaker Placement 09/30/18 17:19 Consult to Physician [CONS] Routine Comment: Consulting Provider: YEIMI FAROOQ Physician Instructions: Reason For Exam: cva 10/01/18 09:22 Consult to Dietitian/Nutrition [CONS] Routine Physician Instructions: Reason For Exam: Reason for Consult: Diet education Primary care physician: YULY GUILLEN Hospitalization Hospital course: I saw and evaluated the patient. I agree with the findings and the plan of care as documented in the Nurse Practitioner's~note, with the following corrections and additions. Patient had syncope related to hypotension. He was observed in the hospital. Stroke was ruled out. MRI brain negative. His blood pressure medications were reduced prior to discharge Time spent for discharge: 33 mins Core Measure Documentation - Palliative Care Palliative Care/ Comfort Measures: Not Applicable - Core Measures Any of the following diagnoses?: none Exam - Constitutional Vitals: Temp Pulse Resp BP Pulse Ox 98.2 F 76 20 132/78 100 10/02/18 07:38 10/02/18 10:00 10/02/18 07:38 10/02/18 07:38 10/02/18 07:38
[2018-10-02] MEDS ORDERED: LASIX IV SCH (10:30)
[2018-10-02] MEDS ORDERED: TOPROL XL PO SCH (10:30)
[2018-10-02] MEDS: COUMADIN PO SCH (16:38)
--- NOTE | 2018-10-03 07:03 | Vascular Lab Report ---
PROCEDURE: VL CAROTID DUPLEX BILAT TECHNIQUE: Duplex Doppler ultrasound of the common, internal and external carotid arteries and the v ertebral arteries was performed bilaterally. [place] scale imaging, velocity spectral waveform analysis, and color flow Doppler were employed. HISTORY: syncope COMPARISONS: None . Note: Measurement of carotid stenosis is based on flow velocity values that correlate with the [place] Symptomatic Carotid Endarterectomy Trial (NASCET) based stenosis criteria using the internal carotid artery diameter as the denominator for stenosis calculation. FINDINGS: RIGHT carotid artery: Velocities: ICA PSV: 61 cm/sec ICA End diastolic: 24 cm/sec CCA PSV: 94 cm/sec IC/CC ratio: 0.65 Plaque/color flow: Mild heterogeneous plaque without significant spectral broadening or abnormal col or flow . RIGHT vertebral artery: Antegrade systolic and diastolic flow LEFT carotid artery: Velocities: ICA PSV: 60 cm/sec ICA End diastolic: 17 cm/sec CCA PSV: 98 cm/sec IC/CC ratio: 0.61 Plaque/color flow: Mild heterogeneous plaque without significant spectral broadening or abnormal col or flow . LEFT vertebral artery: Antegrade systolic and diastolic flow IMPRESSION: 1. RIGHT carotid: No hemodynamically significant (less than 50 percent) internal carotid artery kory nosis. 2. LEFT carotid: No hemodynamically significant (less than 50 percent) internal carotid artery sten osis. 3. Vertebral arteries: Bilaterally antegrade. This document is electronically signed by Geovanny Turner MD., October 03 2018 07:01:44 AM ET
== END 2018-10-02 18:15 | disposition home or self-care (01) | DRG 73 ==
LOC: ED 12:32 → 4A 16:41
PROVIDERS: ADMIT Internal Medicine; ATTEND Internal Medicine
DX: G90.8 Other disorders of autonomic nervous system (principal); I50.23 Acute on chronic systolic (congestive) heart failure; I42.0 Dilated cardiomyopathy; I11.0 Hypertensive heart disease with heart failure; E11.9 Type 2 diabetes mellitus without complications; E78.5 Hyperlipidemia, unspecified; I25.10 Atherosclerotic heart disease of native coronary artery without angina pectoris; Z95.5 Presence of coronary angioplasty implant and graft; Z86.73 Personal history of transient ischemic attack (TIA), and cerebral infarction without residual deficits; Z83.3 Family history of diabetes mellitus; Z82.49 Family history of ischemic heart disease and other diseases of the circulatory system; Z79.4 Long term (current) use of insulin; Z79.899 Other long term (current) drug therapy; Z79.82 Long term (current) use of aspirin
CPT/HCPCS: 36415; 70450; 70544; 70551; 71045; 80048; 80076; 81001; 82962; 83036; 84484; 85007; 85025; 85610; 85730; 87116; 93005; 93010; 93880; 96361; 96374; G0378; A9270-GY; J1815; J1940; J7030